=== PATIENT | female | born 1985 | race Caucasian/White ===

== ENCOUNTER 2017-06-21 13:08 | Emergency (ER) | payer OTHER ==
[~2017-06-21] VITALS: Ht 160 cm; Wt 75.0 kg
[2017-06-21] MEDS ORDERED: TYRO500C PO (13:27)
[2017-06-21] MEDS ORDERED: NS 1,000 ML IV ONE (13:30)
[2017-06-21] MEDS ORDERED: ACETAMINOPHEN 325 MG TAB PO ONE (14:15)
[2017-06-21] MEDS ORDERED: EPIN0.3I6 IM (14:43)
[2017-06-21] MEDS ORDERED: PRED10TA2 PO (14:44)
[2017-06-21 14:54] VITALS: BP 157/95
== END 2017-06-21 14:57 | disposition home or self-care (01) ==
LOC: EDBD 13:08 → M ED 13:08
DX: T63.441A Toxic effect of venom of bees, accidental (unintentional), initial encounter (principal); Y92.89 Other specified places as the place of occurrence of the external cause; Y93.89 Activity, other specified; Y99.0 Civilian activity done for income or pay

== ENCOUNTER → 2018-03-16 | Outpatient (REF) ==
[2018-03-17 10:11] LABS: HERPES ZOSTER, VARICELLA IgG 206 index (Immune >165)
== END ==
LOC: M LAB 10:25
DX: Z02.1 Encounter for pre-employment examination (principal)

== ENCOUNTER 2018-05-22 11:00 | Emergency (ER) | payer OTHER, SELFPAY ==
[2018-05-22] MEDS: NS 1,000 ML IV (12:09)
[2018-05-22] MEDS: methylPREDNISolone INJ 125 MG/2 ML VIAL (J2930) IV (12:09)
[2018-05-22] MEDS: FAMOTIDINE INJ 20MG/2ML VIAL (S0028) IV (12:09)
[2018-05-22] MEDS: ACETAMINOPHEN TAB 650MG DOSE (2X325MG) PO (12:31)
== END 2018-05-22 14:03 | disposition home or self-care (01) ==
LOC: M ED 11:00
DX: S40.861A Insect bite (nonvenomous) of right upper arm, initial encounter (principal); W57.XXXA Bitten or stung by nonvenomous insect and other nonvenomous arthropods, initial encounter; Y92.89 Other specified places as the place of occurrence of the external cause; Z91.030 Bee allergy status; Z88.0 Allergy status to penicillin; Z88.2 Allergy status to sulfonamides
CPT/HCPCS: J2930

== ENCOUNTER → 2018-05-25 | Outpatient (REF) | payer SELFPAY, OTHER | LOC: M SFHCLERA 14:13 | DX: J02.9 Acute pharyngitis, unspecified (principal); R11.0 Nausea; M54.6 Pain in thoracic spine | CPT/HCPCS: 87086 ==

== ENCOUNTER → 2018-06-08 | Outpatient (REF) | payer OTHER ==
[2018-06-08 18:07] LABS: ALBUMIN 4.3 GM/DL (3.2-5.2); ALKALINE PHOSPHATASE 84 U/L (45-117); ALT/SGPT 41 U/L (12-78); ANION GAP 7 MEQ/L (8-16); AST/SGOT 20 U/L (7-37); BILIRUBIN,TOTAL 0.8 MG/DL (0.2-1.0); BLOOD UREA NITROGEN 9 MG/DL (7-18); CALCIUM LEVEL 9.2 MG/DL (8.5-10.1); CARBON DIOXIDE LEVEL 28 MEQ/L (21-32); CHLORIDE LEVEL 105 MEQ/L (98-107); CREATININE FOR GFR 0.72 MG/DL (0.55-1.30); GLOMERULAR FILTRATION RATE > 60.0 (>60); GLUCOSE, FASTING 75 MG/DL (70-100); POTASSIUM SERUM 4.1 MEQ/L (3.5-5.1); SODIUM LEVEL 140 MEQ/L (136-145); TOTAL PROTEIN 7.6 GM/DL (6.4-8.2)
== END ==
LOC: M LAB REF 17:08
DX: E03.8 Other specified hypothyroidism (principal)

== ENCOUNTER → 2018-07-13 | Outpatient (CLI) | payer BC, OTHER | LOC: M OUTALCOH 08:21 | DX: Z13.89 Encounter for screening for other disorder (principal); F10.10 Alcohol abuse, uncomplicated ==

== ENCOUNTER 2018-07-14 17:28 | Emergency (ER) | payer BC ==
[2018-07-14] MEDS: METOCLOPRAMIDE INJ 10MG/2ML VIAL (J2765) IV (19:45)
[2018-07-14] MEDS: NS 1,000 ML IV (19:45)
[2018-07-14] MEDS: diphenhydrAMINE INJ 50MG/ML VIAL (J1200) IV (19:45)
[2018-07-14] MEDS: hydroCHLOROthiazide 12.5 MG CAPSULE PO (20:00)
[2018-07-14] MEDS: KETOROLAC 30 MG/ML VIAL (J1885) IV (20:30)
[2018-07-14 20:31] LABS: BASO % 0.4 % (0.0-1.0); EOS # 0.1 10^3/uL (0.0-0.50); EOS % 0.5 % (0.0-3.0); HEMATOCRIT 43.8 % (36.0-47.0); HEMOGLOBIN 15.4 g/dl (12.0-15.5); IMMATURE GRANULOCYTE % 0.6 % (0-3.0); LYMPH % 21.7 % (24.0-44.0); MEAN CORPUSCULAR HEMOGLOBIN 32.1 pg (27.0-33.0); MEAN CORPUSCULAR HGB CONC 35.2 g/dl (32.0-36.5); MEAN CORPUSCULAR VOLUME 91.3 fl (80.0-96.0); MONO # 0.8 10^3/uL (0.0-0.8); MONO % 8.9 % (0.0-5.0); NEUTROPHILS # 6.4 10^3/uL (1.8-7.7); NEUTROPHILS % 67.9 % (36.0-66.0); PLATELET COUNT, AUTOMATED 214 10^3/uL (150-450); RED CELL DISTRIBUTION WIDTH 11.7 % (11.5-14.5); WHITE BLOOD COUNT 9.4 10^3/uL (4.0-10.0)
[2018-07-14 20:52] LABS: ERYTHROCYTE SEDIMENTATION RATE 1 mm/hr (0-20)
[2018-07-14 20:59] LABS: ANION GAP 6 MEQ/L (8-16); BLOOD UREA NITROGEN 8 MG/DL (7-18); C REACTIVE PROTEIN QUANTITATIV 0.43 MG/DL (0.00-0.30); CALCIUM LEVEL 9.5 MG/DL (8.5-10.1); CARBON DIOXIDE LEVEL 28 MEQ/L (21-32); CHLORIDE LEVEL 105 MEQ/L (98-107); CREATININE FOR GFR 0.78 MG/DL (0.55-1.30); FREE THYROXINE INDEX 5.3 % (1.3-4.8); GLOMERULAR FILTRATION RATE > 60.0 (>60); GLUCOSE, FASTING 88 MG/DL (70-100); POTASSIUM SERUM 3.8 MEQ/L (3.5-5.1); SODIUM LEVEL 139 MEQ/L (136-145); T UPTAKE 34 % (30-39); THYROID STIMULATING HORMONE 0.159 uIU/ML (0.358-3.740); THYROXINE (T4) 15.5 UG/DL (4.5-12.0)
== END 2018-07-14 21:30 | disposition home or self-care (01) ==
LOC: M ED 17:28
DX: G43.909 Migraine, unspecified, not intractable, without status migrainosus (principal); E05.90 Thyrotoxicosis, unspecified without thyrotoxic crisis or storm; I10 Essential (primary) hypertension; Z85.850 Personal history of malignant neoplasm of thyroid; Z90.89 Acquired absence of other organs; Z88.1 Allergy status to other antibiotic agents; Z88.0 Allergy status to penicillin; Z88.2 Allergy status to sulfonamides; Z91.030 Bee allergy status; Z79.899 Other long term (current) drug therapy; Z79.52 Long term (current) use of systemic steroids
CPT/HCPCS: J1200

== ENCOUNTER 2018-07-30 11:00 | Outpatient (RCR) | payer BC | END 2018-08-15 | LOC: M OUTALCOH 11:00 | DX: F10.10 Alcohol abuse, uncomplicated (principal) ==

== ENCOUNTER → 2018-08-30 | Outpatient (CLI) | payer BC | LOC: M LRY 13:41 | DX: M25.561 Pain in right knee (principal) | CPT/HCPCS: 73564 ==

== ENCOUNTER → 2018-09-07 | Outpatient (CLI) | payer BC | LOC: M RAD 12:18 | DX: M25.532 Pain in left wrist (principal) | CPT/HCPCS: 73110 ==

== ENCOUNTER → 2018-12-06 | Outpatient (REF) | payer BC ==
[~2018-12-06] MED LIST: BENA25CA4 PO; EPIN0.3I11 IM; EPIP0.3I2 IM; HYDR12.55 PO; LEVO300T21 PO; PEPC1TAB5 PO; PRED10TA2 PO; PRED20TA PO; TYRO500C PO
[2018-12-06 12:28] LABS: ALBUMIN 4.4 GM/DL (3.2-5.2); ALT/SGPT 63 U/L (12-78); BILIRUBIN,TOTAL 1.2 MG/DL (0.2-1.0); BLOOD UREA NITROGEN 9 MG/DL (7-18); CALCIUM LEVEL 9.2 MG/DL (8.5-10.1); CARBON DIOXIDE LEVEL 28 MEQ/L (21-32); CHLORIDE LEVEL 100 MEQ/L (98-107); CHOLESTEROL LEVEL 202 MG/DL (<200); CHOLESTEROL RISK RATIO 5.941 (<5); CREATININE FOR GFR 0.72 MG/DL (0.55-1.30); GLOMERULAR FILTRATION RATE > 60.0 (>60); GLUCOSE, FASTING 92 MG/DL (70-100); HDL CHOLESTEROL 34 MG/DL (>40); LDL CHOLESTEROL 118 MG/DL (<100); NON-HDL-C 168 MG/DL; POTASSIUM SERUM 3.7 MEQ/L (3.5-5.1); SODIUM LEVEL 136 MEQ/L (136-145); TOTAL PROTEIN 7.5 GM/DL (6.4-8.2); TRIGLYCERIDES LEVEL 249 MG/DL (<150)
== END ==
LOC: M LAB REF 11:59
PROVIDERS: ATTEND Family Medicine Addiction Medicine
DX: F41.1 Generalized anxiety disorder (principal); I10 Essential (primary) hypertension; E03.8 Other specified hypothyroidism

== ENCOUNTER → 2019-03-18 | Outpatient (CLI) | payer BC ==
[2019-03-18 08:49] LABS: BASO % 0.4 % (0.0-1.0); EOS # 0.1 10^3/uL (0.0-0.50); EOS % 1.2 % (0.0-3.0); HEMATOCRIT 42.9 % (36.0-47.0); HEMOGLOBIN 14.8 g/dl (12.0-15.5); LYMPH # 2.1 10^3/uL (1.5-4.5); LYMPH % 25.7 % (24.0-44.0); MEAN CORPUSCULAR HEMOGLOBIN 30.9 pg (27.0-33.0); MEAN CORPUSCULAR HGB CONC 34.5 g/dl (32.0-36.5); MEAN CORPUSCULAR VOLUME 89.6 fl (80.0-96.0); MONO # 0.7 10^3/uL (0.0-0.8); MONO % 8.3 % (0.0-5.0); NEUTROPHILS # 5.2 10^3/uL (1.8-7.7); PLATELET COUNT, AUTOMATED 209 10^3/uL (150-450); RED BLOOD COUNT 4.79 10^6/uL (4.00-5.40); WHITE BLOOD COUNT 8.2 10^3/uL (4.0-10.0)
[2019-03-18 09:33] LABS: ALBUMIN 4.1 GM/DL (3.2-5.2); ALT/SGPT 53 U/L (12-78); BILIRUBIN,TOTAL 0.8 MG/DL (0.2-1.0); BLOOD UREA NITROGEN 9 MG/DL (7-18); CALCIUM LEVEL 8.8 MG/DL (8.5-10.1); CARBON DIOXIDE LEVEL 26 MEQ/L (21-32); CHLORIDE LEVEL 108 MEQ/L (98-107); CHOLESTEROL LEVEL 180 MG/DL (<200); CHOLESTEROL RISK RATIO 5.294 (<5); CREATININE FOR GFR 0.72 MG/DL (0.55-1.30); FREE T4 1.42 NG/DL (0.76-1.46); GLOMERULAR FILTRATION RATE > 60.0 (>60); GLUCOSE, FASTING 87 MG/DL (70-100); HDL CHOLESTEROL 34 MG/DL (>40); LDL CHOLESTEROL 124 MG/DL (<100); NON-HDL-C 146 MG/DL; POTASSIUM SERUM 4.3 MEQ/L (3.5-5.1); SODIUM LEVEL 140 MEQ/L (136-145); THYROID STIMULATING HORMONE 0.142 uIU/ML (0.358-3.740); TRIGLYCERIDES LEVEL 110 MG/DL (<150)
[2019-03-18 09:34] LABS: TOTAL 25(OH) VITAMIN D 25.4 NG/ML (30.0-100.0); TOTAL T3 115.7 NG/DL (60.0-181.0); VITAMIN B12 LEVEL 516 PG/ML
[2019-03-18 09:35] LABS: FOLATE 12.1 NG/ML
[2019-03-18 09:57] LABS: HEMOGLOBIN A1c 4.7 %
== END ==
LOC: M LAB 07:34
PROVIDERS: ATTEND Nurse Practitioner Family
DX: Z13.9 Encounter for screening, unspecified (principal); I10 Essential (primary) hypertension; E03.8 Other specified hypothyroidism

== ENCOUNTER → 2019-05-02 | Outpatient (REF) | payer BC ==
[2019-05-02 20:39] LABS: CHLAMYDIA DNA AMPLIFICATION NEGATIVE (NEGATIVE); GC DNA AMPLIFICATION NEGATIVE (NEGATIVE)
== END ==
LOC: M LAB REF 16:15
PROVIDERS: ATTEND Physician Assistant
DX: N76.0 Acute vaginitis (principal)

== ENCOUNTER → 2019-10-12 | Outpatient (REF) | payer BC ==
[2019-10-12 19:30] LABS: BASO # 0.1 10^3/uL (0.0-0.2); BASO % 0.5 % (0.0-1.0); EOS # 0.1 10^3/uL (0.0-0.5); EOS % 0.6 % (0.0-3.0); HEMATOCRIT 43.4 % (36.0-47.0); HEMOGLOBIN 15.5 g/dl (12.0-15.5); LYMPH # 2.7 10^3/uL (1.5-5.0); LYMPH % 22.4 % (24.0-44.0); MEAN CORPUSCULAR HEMOGLOBIN 32.6 pg (27.0-33.0); MEAN CORPUSCULAR HGB CONC 35.7 g/dl (32.0-36.5); MEAN CORPUSCULAR VOLUME 91.4 fl (80.0-96.0); MONO # 0.9 10^3/uL (0.0-0.8); MONO % 7.9 % (0.0-5.0); NEUTROPHILS # 8.2 10^3/uL (1.5-8.5); NEUTROPHILS % 68.1 % (36.0-66.0); PLATELET COUNT, AUTOMATED 255 10^3/uL (150-450); RED BLOOD COUNT 4.75 10^6/uL (4.00-5.40)
[2019-10-12 20:22] LABS: FREE T4 0.76 NG/DL (0.76-1.46); THYROID STIMULATING HORMONE 93.4 uIU/ML (0.358-3.740)
== END ==
LOC: M LAB REF 18:43
PROVIDERS: ATTEND Nurse Practitioner Adult Health
DX: Z13.9 Encounter for screening, unspecified (principal); E03.8 Other specified hypothyroidism

== ENCOUNTER → 2020-02-22 | Outpatient (REF) | payer BC ==
[2020-02-22 18:51] LABS: APPEARANCE, URINE MANUAL HAZY (CLEAR); BILIRUBIN, URINE MANUAL OBSCURED (NEGATIVE); COLOR, URINE MANUAL DK YELLOW (YELLOW); GLUCOSE, URINE (UA) MANUAL OBSCURED mg/dL (NEGATIVE); KETONE, URINE MANUAL OBSCURED mg/dL (NEGATIVE); PH,URINE MAN OBSCURED UNITS (5.0 - 7.0); PROTEIN, URINE MANUAL OBSCURED mg/dL (NEGATIVE); SPECIFIC GRAVITY,URINE MANUAL 1.022 (1.002-1.035); UROBILINOGEN, URINE MANUAL OBSCURED mg/dl (NORMAL)
[2020-02-22 18:52] LABS: BLOOD URINE MANUAL OBSCURED (NEGATIVE); LEUKOCYTE ESTERASE, URINE MAN OBSCURED (NEGATIVE); NITRITE, URINE MANUAL OBSCURED (NEGATIVE)
[2020-02-22 19:03] LABS: SQUAMOUS EPITHELIAL CELL URINE LARGE AMOUNT /hpf (SMALL AMT)
[2020-02-22 19:04] LABS: BACTERIA, URINE MOD AMOUNT; MUCUS, URINE SMALL AMOUNT (NEGATIVE)
[2020-02-22 19:13] LABS: HYALINE CAST, URINE NONE SEEN /lpf (0-1)
[2020-02-22 20:10] LABS: CHLAMYDIA DNA AMPLIFICATION NEGATIVE (NEGATIVE); GC DNA AMPLIFICATION NEGATIVE (NEGATIVE)
== END ==
LOC: M LAB REF 16:33
PROVIDERS: ATTEND Nurse Practitioner Adult Health
DX: N39.0 Urinary tract infection, site not specified (principal)

== ENCOUNTER 2020-05-17 11:11 | Emergency (ER) | payer BC ==
[~2020-05-17] VITALS: Ht 160 cm; Wt 77.6 kg
[2020-05-17 12:21] LABS: BASO % 0.6 % (0.0-1.0); EOS # 0.1 10^3/uL (0.0-0.5); EOS % 1.3 % (0.0-3.0); HEMATOCRIT 44.4 % (36.0-47.0); HEMOGLOBIN 15.7 g/dl (12.0-15.5); LYMPH # 1.8 10^3/uL (1.5-5.0); LYMPH % 25.6 % (24.0-44.0); MEAN CORPUSCULAR HEMOGLOBIN 31.2 pg (27.0-33.0); MEAN CORPUSCULAR HGB CONC 35.4 g/dl (32.0-36.5); MEAN CORPUSCULAR VOLUME 88.3 fl (80.0-96.0); MONO # 0.7 10^3/uL (0.0-0.8); MONO % 9.4 % (0.0-5.0); NEUTROPHILS # 4.4 10^3/uL (1.5-8.5); NEUTROPHILS % 62.8 % (36.0-66.0); PLATELET COUNT, AUTOMATED 234 10^3/uL (150-450); RED BLOOD COUNT 5.03 10^6/uL (4.00-5.40)
[2020-05-17] MEDS ORDERED: LEVO50TA5 PO (12:29)
[2020-05-17] MEDS ORDERED: LISI20TA20 PO (12:29)
[2020-05-17 12:37] LABS: INR 1.06; PROTHROMBIN TIME 13.5 SECONDS (11.8-14.0)
[2020-05-17 12:38] LABS: PARTIAL THROMBOPLASTIN TIME 32.4 SECONDS (25.0-38.4)
[2020-05-17 12:55] LABS: BLOOD UREA NITROGEN 11 MG/DL (7-18); CALCIUM LEVEL 9.4 MG/DL (8.5-10.1); CARBON DIOXIDE LEVEL 25 MEQ/L (21-32); CHLORIDE LEVEL 108 MEQ/L (98-107); CREATININE FOR GFR 0.79 MG/DL (0.55-1.30); GLOMERULAR FILTRATION RATE > 60.0 (>60); GLUCOSE, FASTING 96 MG/DL (70-100); POTASSIUM SERUM 3.9 MEQ/L (3.5-5.1); SODIUM LEVEL 139 MEQ/L (136-145); THYROID STIMULATING HORMONE 0.005 uIU/ML (0.358-3.740)
--- NOTE | 2020-05-17 12:55 | REP ---
Clinical: Menorrhagia. Technique: Transabdominal pelvic ultrasound followed by transvaginal examination for better evaluation of the endometrium and adnexa with color Doppler evaluation of the ovaries. Findings: Bladder is normal and measures 6.5 x 3.9 x 6.7 cm. Anteverted uterus measures 9.8 x 4.6 x 5.4 cm. Anterior intramural/submucosal fibroid measuring approximately 1.8 cm towards the fundus is suggested. Endometrial complex measures 4 mm. Subcentimeter Nabothian cysts identified in the lower uterine segment. Bilateral ovaries are normal in appearance and vascularity without torsion. Right ovary measures 3.0 x 1.9 x 3.2 cm (RI 0.54). The ovary measures 2.6 x 2.1 x 2.6 cm (RI 0.46). No pelvic fluid or adnexal mass lesion. Impression: 1. Suspected anterior intramural/submucosal fibroid. 2. Normal bilateral ovaries without torsion. Electronically Signed by Bradly Lu MD 05/17/2020 12:46 P
[2020-05-17 13:06] LABS: HCG, SERUM QUALITATIVE NEGATIVE (NEGATIVE)
[2020-05-17] MEDS ORDERED: IBUPROFEN 800 MG TAB PO ONE (13:15)
[2020-05-17] MEDS ORDERED: IBUP80TA PO (13:16)
[2020-05-17 13:41] VITALS: BP 155/90
== END 2020-05-17 13:42 | disposition home or self-care (01) ==
LOC: M ED 11:11
DX: D25.9 Leiomyoma of uterus, unspecified (principal); N93.8 Other specified abnormal uterine and vaginal bleeding; E03.9 Hypothyroidism, unspecified; Z79.899 Other long term (current) drug therapy; Z79.890 Hormone replacement therapy; Z88.0 Allergy status to penicillin; Z88.1 Allergy status to other antibiotic agents; Z88.2 Allergy status to sulfonamides; Z88.8 Allergy status to other drugs, medicaments and biological substances; Z91.030 Bee allergy status

== ENCOUNTER 2020-06-09 15:21 | Emergency (ER) | payer BC ==
[~2020-06-09 15:21] MED LIST changes: +IBUP80TA PO; +LEVO50TA5 PO; +LISI20TA20 PO
[2020-06-09] MEDS ORDERED: FAMOTIDINE INJ 20MG/2ML VIAL (S0028 PER 1) ONE (15:58)
[2020-06-09] MEDS ORDERED: FAMOTIDINE INJ 20MG/2ML VIAL (S0028 PER 1) As Ordered ONE (15:58)
== END 2020-06-09 18:33 | disposition home or self-care (01) ==
LOC: M ED 15:21
DX: R22.1 Localized swelling, mass and lump, neck (principal); T63.441A Toxic effect of venom of bees, accidental (unintentional), initial encounter; T44.5X5A Adverse effect of predominantly beta-adrenoreceptor agonists, initial encounter; X58.XXXA Exposure to other specified factors, initial encounter; Y92.89 Other specified places as the place of occurrence of the external cause; I10 Essential (primary) hypertension; Z79.899 Other long term (current) drug therapy; Z79.890 Hormone replacement therapy; Z88.0 Allergy status to penicillin; Z88.1 Allergy status to other antibiotic agents; Z88.2 Allergy status to sulfonamides; Z88.8 Allergy status to other drugs, medicaments and biological substances; Z91.030 Bee allergy status

== ENCOUNTER → 2020-07-26 | Outpatient (REF) | payer BC | LOC: M LAB REF 15:34 | PROVIDERS: ATTEND Physician Assistant | DX: R30.0 Dysuria (principal) ==

== ENCOUNTER → 2020-08-30 | Outpatient (REF) | payer BC | LOC: M SFHCWAGY 10:20 | PROVIDERS: ATTEND Obstetrics & Gynecology | DX: Z12.4 Encounter for screening for malignant neoplasm of cervix (principal); Z77.9 Other contact with and (suspected) exposures hazardous to health ==

== ENCOUNTER → 2020-10-08 | Outpatient (CLI) | payer SELFPAY | LOC: M LABSMTC 13:33 | PROVIDERS: ATTEND Pediatrics | DX: Z20.828 Contact with and (suspected) exposure to other viral communicable diseases (principal) ==

== ENCOUNTER → 2020-11-01 | Outpatient (CLI) | payer BC ==
[2020-11-01 15:46] LABS: BASO % 0.4 % (0.0-1.0); EOS # 0.1 10^3/uL (0.0-0.5); HEMATOCRIT 41.9 % (36.0-47.0); HEMOGLOBIN 14.6 g/dl (12.0-15.5); LYMPH # 2.3 10^3/uL (1.5-5.0); LYMPH % 24.2 % (24.0-44.0); MEAN CORPUSCULAR HEMOGLOBIN 31.7 pg (27.0-33.0); MEAN CORPUSCULAR HGB CONC 34.8 g/dl (32.0-36.5); MEAN CORPUSCULAR VOLUME 90.9 fl (80.0-96.0); MONO # 0.7 10^3/uL (0.0-0.8); NEUTROPHILS # 6.3 10^3/uL (1.5-8.5); NEUTROPHILS % 66.9 % (36.0-66.0); PLATELET COUNT, AUTOMATED 242 10^3/uL (150-450); RED BLOOD COUNT 4.61 10^6/uL (4.00-5.40); WHITE BLOOD COUNT 9.3 10^3/uL (4.0-10.0)
[2020-11-01 16:11] LABS: ALBUMIN 4.2 GM/DL (3.2-5.2); ALT/SGPT 44 U/L (12-78); BILIRUBIN,TOTAL 0.4 MG/DL (0.2-1.0); BLOOD UREA NITROGEN 10 MG/DL (7-18); CALCIUM LEVEL 9.7 MG/DL (8.5-10.1); CARBON DIOXIDE LEVEL 26 MEQ/L (21-32); CHLORIDE LEVEL 105 MEQ/L (98-107); CHOLESTEROL LEVEL 202 MG/DL (<200); CHOLESTEROL RISK RATIO 6.516 (<5); CREATININE FOR GFR 0.87 MG/DL (0.55-1.30); FREE T4 1.13 NG/DL (0.76-1.46); GLOMERULAR FILTRATION RATE > 60.0 (>60); GLUCOSE, FASTING 102 MG/DL (70-100); HDL CHOLESTEROL 31 MG/DL (>40); NON-HDL-C 171 MG/DL; POTASSIUM SERUM 3.9 MEQ/L (3.5-5.1); SODIUM LEVEL 138 MEQ/L (136-145); TOTAL PROTEIN 7.3 GM/DL (6.4-8.2); TRIGLYCERIDES LEVEL 606 MG/DL (<150)
== END ==
LOC: M LAB 15:01
PROVIDERS: ATTEND Physician Assistant
DX: E03.9 Hypothyroidism, unspecified (principal)

== ENCOUNTER 2020-12-03 09:42 | Emergency (ER) | payer BC ==
[~2020-12-03] VITALS: Ht 160 cm; Wt 82.4 kg
--- OUTSIDE RECORDS SUMMARY | 2020-12-03 09:48 | CCD ---
Author Author [facility] Organization [facility] Address Unknown Phone Unavailable Care Team Providers Care Shipping And Receiving Name Role Phone Jane Xie Unavailable PROBLEMS Type Condition ICD9-CM Code [id number] Code Onset Dates Condition S tatus SNOMED Code Notes Problem Hypertensive urgency I16.0 Active 283775095 Problem Abnormal uterine bleeding (AUB) N93.9 Active 15024266966326 ALLERGIES Allergen (clinical drug ingredient) Drug/Non Drug Allergy do cumented on EMR Reaction Allergy Type Onset Date Status sulfamethoxazole / trimethoprim Bactrim[place] [place] Code:[address]-34) unknown Drug Allergy Active Bee Pollen([facility] [place] Code:[address]-79) Rash Drug Allergy Active amoxicillin Amoxicillin(ND Code:[address]-35) unknown Drug Aller gy Active ENCOUNTERS from 1986 to 2020-11-12 Encounter Location Date Provider Diagnosis [facility] [address] [place] [phone] Oct, Jane Rojas IMMUNIZATIONS No Information SOCIAL HISTORY Tobacco Use: Social History Observation Description Date Details (start date - stop date) Never Smoker Sex Assigned At : Social History Observation Description Sex Assigned At Unknown Alcohol Screening: Question Answer Notes Did you have a drink containing alcohol in the past year? Ye s Points 2 Interpretation Negative How many drinks did you have on a typica l day when you were drinking in the past year? 1 or 2 (0 points) How often did you have a drink containing alcohol in t he past year? Two to four times a month (2 points) Tobacco Use: Question Answer Notes Are you a: never smoker REASON FOR REFERRAL No Information VITAL SIGNS No information MEDICATIONS Medication SIG (Take, Route, Frequency, Duration) Notes Start Da te End Date Status Paroxetine HCl 10 MG 1 tablet in the morning Orally Once a day Not-Taking Ibuprofen 800 MG 1 tablet Orally four times daily take wi th food for 30 day(s) Aug, Not-Taking Levothyroxine Sodium 200 MCG 1 tablet in the morning o n an empty stomach Orally Once a day Active Lisinopril-Hydrochlorothiazide 20-25 MG 1 tablet Orall y Once a day for 30 day(s) Aug, Active Neti Pot Sinus Wash 2300-700 MG as directed Nasally bid for 10 d ay(s) Aug, Not-Taking Hydrochlorothiazide 25 MG 1 tablet in the morning Orally Once a day Not-Taking Levothyroxine Sodium 50 MCG 1 tablet in the morning on an empty stomach Orally Once a day Active Ibuprofen 800 MG 1 tablet with food or milk as needed Ora lly Three times a day Not-Taking Levothroyxine 300 mg 1 tab orally Daily Not-Taking Sudafed 30 MG 1 tablet as needed Orally every 6 hrs for 5 day(s) Aug, Not-Taking Flonase 50 MCG/ACT 1 spray in each nostril Nasally Twice a day f or 30 day(s) Aug, Not-Taking PROCEDURES No Information RESULTS No Results REASON FOR VISIT AUTHORIZATION MEDICAL (GENERAL) HISTORY Type Description Date Medical History hypertension Medical History Hypothyroidism Surgical History tubal ligation 2010 Surgical History thyroidectomy 2011 Surgical History uterine ablation 2012, 2014 Hospitalization History see above Goals Section No Information Health Concerns No Information MEDICAL EQUIPMENT No Information MENTAL STATUS No Information FUNCTIONAL STATUS No Information ASSESSMENTS No Information PLAN OF TREATMENT Next Appt Details Provider Name:Jane Leslie Rojas 2021-01-16 0 1:00:00 PM, [address] [place] [address], [phone], Provider Name:Jane Xie 2021-01-23 0 7:30:00 AM, [address] [place] [address], [phone], Provider Name:Jane Xie 2021-02-08 0 8:20:00 AM, [address] [place] [address], [phone], Provider Name:Jane Xie 2021-03-05 0 8:20:00 AM, [address] [place], [phone], Insurance Providers Payer Name Payer Address Payer Phone Insured Name Patient Relati onship to Insured Coverage Start Date Coverage End Date YISSEL SUÁREZ PPO [phone] [facility] [place] [id number] GIL COTTO self
--- OUTSIDE RECORDS SUMMARY | 2020-12-03 09:48 | CCD ---
Author Organization Unknown Address [address] [place] [address] Phone [phone] Care Team Providers Care Insurance Verification Representative Name Role Phone Joy Logan Unavailable Unavailable Allergies Code Code System Name Reaction Severity Status Onset 723 RxNorm Amoxicillin Active 06/08/2018 002630 RxNorm Bactrim Active 06/08/2018 42860 RxNorm Vancomycin Active 06/08/2018 Notes: BEE STINGS Medications Name Status Start Date Stop Date buspirone 5 mg tablet Completed 09/27/2020 ciprofloxacin 500 mg tablet TAKE 1 TABLET BY MOUTH TWICE DAILY Completed 09/16 clindamycin HCl 300 mg capsule Completed 11/27/2019 doxycycline hyclate 100 mg capsule TAKE 1 CAPSULE BY MOUTH TWICE DAILY Completed 10/2020 epinephrine 0.3 mg/0.3 mL injection, auto-injector Completed 09/27/2020 Euthyrox 200 mcg tablet TAKE 1 TABLET BY MOUTH ONCE DAILY IN THE MORNING ON AN EMPTY STOMACH TAKE WITH 50 MCG TABLET Completed 09/27/2020 fluconazole 150 mg tablet TAKE 1 TABLET BY MOUTH NEEDED FOR YEAST INFECTION Completed 09/27/2020 hydrocodone 5 mg-acetaminophen 325 mg tablet Completed 09/27/2020 ibuprofen 800 mg tablet Completed 09/27/20 20 levothyroxine 50 mcg tablet Active Not available lisinopril 20 mg-hydrochlorothiazide 25 mg tablet TAKE 1 TABLET BY MOUTH ONCE DAILY Active Not a vailable nitrofurantoin monohydrate/macrocrystals 100 mg capsule Complete d 09/27/2020 prednisone 10 mg tablet TAKE 2 TABLETS BY MOUTH TWICE A DAY FOR 4 DAYS THEN 1 TAB BY MOUTH 3 TIMES A DAY FOR 4 DAYS THEN 1 TAB BY MOUTH TWICE A DAY FOR 4 DAYS THEN Completed 09/27/2020 prednisone 20 mg tablet Take 2 tablets every day by oral route in the morning for 5 days. Active Not available sertraline 100 mg tablet Completed 020 Problems Name Status Onset Date Source Hypothyroidism Active 06/08/2018 History Hypertensive Disorder Active 06/08/2018 History Generalized Anxiety Disorder Active 07/20/2018 His tory Traumatic Injury by Site Unknown 09/07/2018 History Under Immunized Unknown 11/24/2018 History Influenza Vaccine Needed Unknown 12/06/2018 History Clinical Finding Unknown 03/17/2019 History Urinary Tract Infectious Disease Unknown 02/22/2020 History Procedures Date Name Performed by Tonsillectomy Information not avai lable Endometrial Ablation Information not shane ilable Bilateral Tubal Ligation Information not available Thyroidectomy Information not avai lable Notes: Pt states Hysterectomy is schedul ed for Nov 2020 Results Lab Results None recorded. Past Encounters 09/27/2020 Hypertensive Disorder; Anterior Chandra Splints Tanika Wilson PA-C: [address] [place] [address], Ph. Social History Tobacco Smoking Status Former Smoker (11/19 PPD) Notes: pt re ports smoking less than 1 cig/day Vaccine List Vaccine Type Influenza, injectable, MDCK, preservativ e free, quadrivalent 11/24/20180.5 mL Tdap 12/06/20180.5 mL varicella 12/06/20180.5 mL 01/13/20190.5 mL Plan of Care Reminders Provider Appointments None recorded. Lab None recorded. Referral None recorded. Procedures None recorded. Surgeries None recorded. Imaging None recorded. Vitals 09/27/2020 11:00AM ESTABLISHED [id number] Height Weight BMI Blood Pressure 63 in 175 lbs 8 oz 31.1 kg/m2 154/113 mm[Hg] 02/22/2020 Height Weight Blood Pressure 63 in 180 lbs 0.96 oz 152/105 mm[Hg] 10/10/2019 Height Weight Blood Pressure 63 in 182 lbs 156/105 mm[Hg] 03/17/2019 Height Weight Blood Pressure 63 in 172 lbs 2.08 oz 130/88 mm[Hg] 12/01/2018 Height Weight Blood Pressure 63 in 179 lbs 2.08 oz 132/100 mm[Hg]
--- OUTSIDE RECORDS SUMMARY | 2020-12-03 09:48 | CCD ---
Author Organization Unknown Address [address] [place] [address] Phone [phone] Care Team Providers Care Singeing Torch Operator Name Role Phone Joy Logan Unavailable Unavailable Allergies Code Code System Name Reaction Severity Status Onset 723 RxNorm Amoxicillin Active 06/08/2018 179128 RxNorm Bactrim Active 06/08/2018 52054 RxNorm Vancomycin Active 06/08/2018 Bee Venom Protein (Honey Bee) Active Medications Name Status Start Date Stop Date buspirone 5 mg tablet Completed 09/27/2020 ciprofloxacin 500 mg tablet TAKE 1 TABLET BY MOUTH TWICE DAILY Completed 09/16 citalopram 10 mg tablet Take 1 tablet every day by oral route. Active Not available clindamycin HCl 300 mg capsule Completed 1 11/27/2019 doxycycline hyclate 100 mg capsule TAKE 1 CAPSULE BY MOUTH TWICE DAILY Completed 10/2020 epinephrine 0.3 mg/0.3 mL injection, auto-injector Completed 09/27/2020 Euthyrox 200 mcg tablet Active Not avai lable Euthyrox 50 mcg tablet Active Not avail able fluconazole 150 mg tablet TAKE 1 TABLET BY MOUTH NEEDED FOR YEAST INFECTION Completed 09/27/2020 hydrocodone 5 mg-acetaminophen 325 mg tablet Completed 09/27/2020 hydroxyzine HCl 25 mg tablet 1-2 tablets 30 mins prior to bed time, MDD 2 Active Not available ibuprofen 800 mg tablet Completed 09/27/20 lisinopril 20 mg-hydrochlorothiazide 25 mg tablet TAKE [...] route in the morning for 5 days. Completed 11/23/2020 sertraline 100 mg tablet Completed 020 Problems [...] ed for Nov 2020 Results Lab Results Date Name Specimen Result Interpretation Description Value Range Status Address 11/01/2020 CBC W/ Auto Diff Normal White Blood Count 9.3 10 4.0-10.0 10 [facility]: [address] [place] [address] Normal Red Blood Count 4.61 10 4.00-5.40 10 [facility]: [address] [place] [address] Normal Hemoglobin 14.6 g/dL 12.0-15.5 g/dL [facility]: [address] [place] [address] Normal Hematocrit 41.9 % 36.0-47.0 % [facility]: [address] [place] [address] Normal Mean Corpuscular Volume 90.9 fL 80.0 -96.0 fL [facility]: [address] [place] [address] Normal Mean Corpuscular Hemoglobin 31.7 pg 27.0-33.0 pg [facility]: [address] [place] [address] Normal Mean Corpuscular HGB Conc 34.8 g/dL 32.0-36.5 g/dL [facility]: [address] [place] [address] Normal Red Cell Distribution Width 11.9 % 1 1.5-14.5 % [facility]: [address] [place] [address] Normal Platelet Count, Automated 242 10 150 -450 10 [facility]: [address] [place] [address] High Neutrophils % 66.9 % 36.0-66.0 % [facility]: 0 [facility] Normal Lymph % 24.2 % 24.0-44.0 % [facility]: [address] [facility] High Aiken % 7.0 % 0.0-5.0 % [facility]: [address] [facility] Normal Eos % 1.0 % 0.0-3.0 % [facility]: [address] [facility] Normal Baso % 0.4 % 0.0-1.0 % [facility]: [address] [facility] Normal Immature Granulocyte % 0.5 % 0-3.0 % [facility]: [address] [facility] Normal Nucleated Red Blood Cell % 0.0 % 0- 0 % [facility]: [address] [facility] Normal Neutrophils # 6.3 10 1.5-8.5 10 [facility] [address] [facility] Normal Lymph # 2.3 10 1.5-5.0 10 [facility]: [address] [facility] Normal Aiken # 0.7 10 0.0-0.8 10 [facility]: [address] [facility] Normal Eos # 0.1 10 0.0-0.5 10 [facility]: [address] [facility] Normal Baso # 0.0 10 0.0-0.2 10 [facility]: [address] [facility] 11/01/2020 CMP, Serum or Plasma High Glucose, Fastin g 102 mg/dL 70-100 mg/dL [facility]: 83 0 [facility] Normal Blood Urea Nitrogen 10 mg/dL 7-18 mg /dL [facility]: [address] [facility] Normal Creatinine for GFR 0.87 mg/dL 0.55-1 .30 mg/dL [facility]: 0 [facility] Normal Glomerular Filtration Rate > 60.0 >6 0 [facility]: [address] [facility] Normal Sodium Level 138 mEq/L 136-145 mEq/L [facility]: [address] [facility] Normal Potassium Serum 3.9 mEq/L 3.5-5.1 mE q/L [facility]: [address] [facility] Normal Chloride Level 105 mEq/L 98-107 mEq/ L [facility]: [address] [facility] Normal Carbon Dioxide Level 26 mEq/L 21-32 mEq/L [facility]: [address] [facility] Low Anion Gap 7 mEq/L 8-16 mEq/L [facility]: [address] [facility] Normal Calcium Level 9.7 mg/dL 8.5-10.1 mg/ dL [facility]: [address] [facility] Normal AST/SGOT 22 U/L 7-37 U/L [facility]: [address] [facility] Normal ALT/SGPT 44 U/L 12-78 U/L [facility]: [address] [facility] Normal Alkaline Phosphatase 77 U/L 45-117 U /L [facility]: [address] [facility] Normal Bilirubin,total 0.4 mg/dL 0.2-1.0 mg /dL [facility]: [address] [facility] Normal Total Protein 7.3 gm/dL 6.4-8.2 gm/d L [facility]: [address] [facility] Normal Albumin 4.2 gm/dL 3.2-5.2 gm/dL Sakina l [facility]: [address] [facility] Normal Albumin/globulin Ratio 1.4 1.2-2. 2 [facility]: [address] [facility] 11/01/2020 Lipid Panel, Blood High Triglycerides Lev el 606 mg/dL <150 mg/dL [facility]: 83 0 [facility] High Cholesterol Level 202 mg/dL <200 mg/ dL [facility]: [address] [facility] Low HDL Cholesterol 31 mg/dL >40 mg/dL F inal [facility]: [address] [facility] Normal Non-hdl-c 171 mg/dL Final [facility]: [address] [facility] High Cholesterol Risk Ratio 6.516 <5 Final [facility]: [address] [facility] 11/01/2020 TSH + Free T4, Serum High Thyroid Stimulating Hormone 5.160 uIU/mL 0.358-3.740 uIU/mL Final [facility]: [address] [facility] Normal Free T4 1.13 NG/dL 0.76-1.46 NG/dL F inal [facility]: [address] [facility] Past Encounters 11/23/2020 Hypertensive Disorder; Generalized Anxiety Disorder; Hypothyroidism Tanika KRISTOFER Wilson: [address] [place] [phone], Ph. 09/27/2020 Hypertensive Disorder; Anterior Chandra Splints Tanika Wilson PA-C: [address] [place] [phone], Ph. Social History Tobacco Smoking Status Former [...] Surgeries None recorded. Imaging None recorded. Vitals 11/23/2020 02:00PM ESTABLISHED [id number] Height Weight BMI Blood Pressure 63 in 176 lbs 2 oz 31.2 kg/m2 149/108 mm[Hg] 09/27/2020 11:00AM ESTABLISHED [id number] Height Weight BMI Blood Pressure 63 in [...]
--- OUTSIDE RECORDS SUMMARY | 2020-12-03 09:48 | CCD ---
Author Author [facility] Organization [facility] Address Unknown Phone Unavailable Care Team Providers Care Head Setter Name Role Phone Jane Xie Unavailable PROBLEMS Type Condition ICD9-CM Code XYU18-QG Code Onset Dates Condition S tatus SNOMED Code Notes Problem Hypertensive urgency I16.0 Active 580742121 Problem Abnormal uterine bleeding (AUB) N93.9 Active 14914150732290 ALLERGIES Allergen (clinical drug ingredient) Drug/Non Drug Allergy do cumented on EMR Reaction Allergy Type Onset Date Status sulfamethoxazole / trimethoprim Bactrim([facility] Code:[address]-06) unknown Drug Allergy Active Bee Pollen(ND Code:[address]-97) Rash Drug Allergy Active amoxicillin Amoxicillin(ND Code:[address]-96) unknown Drug Aller gy Active ENCOUNTERS from 1986 to 2020-11-01 Encounter Location Date Provider Diagnosis [facility] [address] [place] [phone] Aug, Jane Xie Abnormal uterine ble eding (AUB) N93.9 and Screening for malignant neoplasm of cervix Z12.4 IMMUNIZATIONS No Information SOCIAL HISTORY Tobacco Use: [...] REASON FOR REFERRAL No Information VITAL SIGNS Weight 176 lbs Aug, Height 63 in Aug, BMI 31.17 kg/m2 Aug, Blood pressure systolic 154 mm Hg Aug, Blood pressure diastolic 92 mm Hg Aug, MEDICATIONS Medication SIG (Take, Route, Frequency, Duration) [...] day(s) Aug, Not-Taking PROCEDURES No Information RESULTS Component Value Reference Range PAP REQUEST FOR SERVICE Reviewed date:10/31/2020 15:32:36 Interpretation: Performing Lab:[facility], [facility] [address] [address] , ,[facility]01 REASON FOR VISIT referral- pelvic pain, lesions on uterus MEDICAL (GENERAL) HISTORY Type Description Date Medical History hypertension Medical History Hypothyroidism Surgical History tubal ligation 2010 Surgical History thyroidectomy 2011 Surgical History uterine ablation 2012, 2014 Hospitalization History see above Goals Section No Information Health Concerns No Information MEDICAL EQUIPMENT No Information MENTAL STATUS No Information FUNCTIONAL STATUS No Information ASSESSMENTS Encounter Date Diagnosis Assessment Notes Treatment Notes Treatm ent Clinical Notes Aug, Abnormal uterine bleeding (AUB) (ICD-10 - N93.9) I discussed treatment options with patient include hysterectomy and medical management. Would not advise for ablation considering she has had a previous ablation which has failed. She will consider these options and will follow-up to discuss course of action Aug, Screening for malignant neoplasm of cervix (ICD- 10 - Z12.4) PLAN OF TREATMENT Treatment Notes Assessment Notes Clinical Notes Abnormal uterine bleeding (AUB) I discus sed treatment options with patient include hysterectomy and medical management. Would not advise for ablation considering she has had a previous ablation which has failed. She will consider these options and will follow-up to discuss course of action Treatment Notes Test Name Order Date THIN PREP PAP 2020-11-01 Next Appt Details Provider Name:Halle Villafuertejac, 2020-11-12 10:40:00 AM, [address] [place] [address], [phone], Provider Name:Jane Parishn, 2021-01-16 0 1:00:00 PM, [address] [place] [address], [phone], Provider Name:Jane Parishconcepcion 2021-01-23 0 7:30:00 AM, [address] [place] [address], [phone], Provider Name:Jane Nelson Xie, 2021-02-08 0 8:20:00 AM, [address] [place] [address], [phone], Provider Name:Jane Nelson Rojas, 2021-03-05 0 8:20:00 AM, [address] [place] [address], [phone], Insurance Providers Payer Name Payer Address Payer Phone Insured Name Patient Relati onship to Insured Coverage Start Date Coverage End Date BCBS KIRK SUÁREZ PPO [phone] [facility] [place] [address] GIL COTTO self
--- OUTSIDE RECORDS SUMMARY | 2020-12-03 09:49 | CCD ---
Author Author [facility] Organization [facility] Address Unknown Phone Unavailable Support Name Relationship Address Phone SMC* Next Of Kin [address] [place] [address] [employer] Next Of Kin [address] [place] [address] Monty Taylor Next Of Kin Unknown Unavailable Joy Loredo Next Of Kin [address] [place] [address] UE Next Of Kin Unknown Unavailable ASHWINI CHILDRESS Next Of Kin [address] [place] [address] MONTY AMADOR Next Of Kin [address] [place] [address] Jaylan Dias MD Next Of Kin [address] [place] [address] [employer] Next Of Kin [address] [place] [address] [employer] [place] Next Of Kin [address] [place] [address] Maggie Pedraza DMD Next Of Kin [address] [place] [address] [employer] [place] [address] DEVI CHILDRESS Next Of Kin [address] [place] [address] [employer] Next Of Kin [address] [place] [address] MONTY TAYLOR Next Of Kin [address] [place] [address] [facility] [place] [address] Unavailable MONTY BUTLER Next Of Kin [address] [place] [address] GIL CASTANON Next Of Kin [address] [place] [address] MONTY TAYLOR ECON [address] [facility] [place] [place] [address] Unavailable Care Team Providers Care Cupola Patcher Name Role Phone Desmond, A Joy SCRAPER HAND Unavailable Unavailable Desmond, A Joy SCRAPER HAND Unavailable Unavailable Desmond, A Joy SCRAPER HAND Unavailable Unavailable Desmond, A Joy SCRAPER HAND Unavailable Unavailable Desmond, A Joy SCRAPER HAND Unavailable Unavailable Desmond, A Joy SCRAPER HAND Unavailable Unavailable Desmond, A Joy SCRAPER HAND Unavailable Unavailable Desmond, A Joy SCRAPER HAND Unavailable Unavailable Desmond, A Joy SCRAPER HAND Unavailable Unavailable Desmond, A Joy SCRAPER HAND Unavailable Unavailable Desmond, A Joy SCRAPER HAND Unavailable Unavailable Desmond, A Joy SCRAPER HAND Unavailable Unavailable Desmond, A Joy SCRAPER HAND Unavailable Unavailable Desmond, A Joy SCRAPER HAND Unavailable Unavailable Desmond, A Joy SCRAPER HAND Unavailable Unavailable Desmond, A Joy SCRAPER HAND Unavailable Unavailable [place], A Joy SCRAPER HAND Unavailable Unavailable [place], A Joy SCRAPER HAND Unavailable Unavailable [place], A Joy SCRAPER HAND Unavailable Unavailable [place], A Joy SCRAPER HAND Unavailable Unavailable [place], A Joy SCRAPER HAND Unavailable Unavailable Desmond, A Joy SCRAPER HAND Unavailable Unavailable [place], A Joy SCRAPER HAND Unavailable Unavailable Desmond, A Joy SCRAPER HAND Unavailable Unavailable [place], A Joy SCRAPER HAND Unavailable Unavailable Desmond, A Joy SCRAPER HAND Unavailable Unavailable Desmond, A Joy SCRAPER HAND Unavailable Unavailable Scordo, M Tanika PA Unavailable Unavailable Scordo, M Tanika PA Unavailable Unavailable Scordo, M Tanika PA Unavailable Unavailable Scordo, M Tanika PA Unavailable Unavailable Scordo, M Tanika PA Unavailable Unavailable Scordo, M Tanika PA Unavailable Unavailable Scordo, M Tanika PA Unavailable Unavailable Scordo, M Tanika PA Unavailable Unavailable Scordo, M Tanika PA Unavailable Unavailable Scordo, M Tanika PA Unavailable Unavailable Scordo, M Tanika PA Unavailable Unavailable Scordo, M Tanika PA Unavailable Unavailable Scordo, M Tanika PA Unavailable Unavailable Scordo, M Tanika PA Unavailable Unavailable Scordo, M Tanika PA Unavailable Unavailable Scordo, M Tanika PA Unavailable Unavailable Scordo, M Tanika PA Unavailable Unavailable Scordo, M Tanika PA Unavailable Unavailable Scordo, M Tanika PA Unavailable Unavailable Scordo, M Tanika PA Unavailable Unavailable Scordo, M Tanika PA Unavailable Unavailable Scordo, M Tanika PA Unavailable Unavailable Scordo, M Tanika PA Unavailable Unavailable Scordo, M Tanika PA Unavailable Unavailable Scordo, M Tanika PA Unavailable Unavailable Scordo, M Tanika PA Unavailable Unavailable Scordo, M Tanika PA Unavailable Unavailable Scordo, M Tanika PA Unavailable Unavailable Scordo, M Tanika PA Unavailable Unavailable Scordo, M Tanika PA Unavailable Unavailable Scordo, M Tanika PA Unavailable Unavailable Scordo, M Tanika PA Unavailable Unavailable Scordo, M Tanika PA Unavailable Unavailable Scordo, M Tanika PA Unavailable Unavailable Scordo, M Tanika PA Unavailable Unavailable Scordo, M Tanika PA Unavailable Unavailable Scordo, M Tanika PA Unavailable Unavailable Scordo, M Tanika PA Unavailable Unavailable Scordo, M Tanika PA Unavailable Unavailable Scordo, M Tanika PA Unavailable Unavailable Joy Logan SCRAPER HAND SCRAPER HAND Unavailable Unavailable Re-disclosure Warning The records that you are about to access may contain information from federally-assisted alcohol or drug abuse programs. If such information is present, then the following federally mandated warning applies: This information has been disclosed to you from records protected by federal confidentiality rules (42 CFR part 2). The federal rules prohibit you from making any further disclosure of this information unless further disclosure is expressly permitted by the written consent of the person to whom it pertains or as otherwise permitted by 42 CFR part 2. A general authorization for the release of medical or other information is NOT sufficient for this purpose. The Federal rules restrict any use of the information to criminally investigate or prosecute any alcohol or drug abuse patient.The records that you are about to access may contain highly sensitive health information, the redisclosure of which is protected by Article 27-F of the [facility] Public Health law. If you continue you may have access to information: Regarding HIV / AIDS; Provided by facilities licensed or operated by the [facility] Office of Mental Health; or Provided by the [facility] Office for People With Developmental Disabilities. If such information is present, then the following [facility] mandated warning applies: This information has been disclosed to you from confidential records which are protected by state law. State law prohibits you from making any further disclosure of this information without the specific written consent of the person to whom it pertains, or as otherwise permitted by law. Any unauthorized further disclosure in violation of state law may result in a fine or skilled nursing sentence or both. A general authorization for the release of medical or other information is NOT sufficient authorization for further disc losure. Family History Family Member Name Family Member Gender Family Member Status Date o f Status Description Data Source(s) Unknown Unknown Problem [facility] Encounters Encounter Providers Location Date Indications Data Source(s ) Tanika Wilson PA-C: [address] [place] [address], Ph. Attender: Tanika BOSCH [facility] Medical 11/23/2020 12:00:00 AM EST FR[facility]RICK ([facility]) Unknown [address] [facility] [address] 11/12/2020 12:00:00 AM EST eCW1 ([facility]) Outpatient Attender: NEEL CHRISTIANSEN 09/27/2020 11:22:01 A M EST [facility] Tanika Wilson PA-C: [address] [place] [address], Ph. Attender: Tanika BOSCH [facility] Medical 09/27/2020 12:00:00 AM EST FR[facility]RICK ([facility]) Tanika Wilson PA-C: [address] [place] [address], Ph. Attender: Tanika BOSCH [facility] Medical 09/27/2020 12:00:00 AM EST FR[facility]RICK ([facility]) Outpatient [address] [facility] [address] 08/30/2020 12:00:00 AM EDT eCW1 [facility]) Outpatient Attender: Joy HEARTP FP 08/16/2020 08:2 7:03 AM EDT [facility] Outpatient Attender: NEEL SHAIKH FP 08/16/2020 08:27:02 A M EDT [facility] Outpatient Attender: Joy Desmond HEARTP FP 08/07/2020 09:0 1:00 AM EDT [facility] Outpatient Attender: NEEL HEARTP FP 08/07/2020 09:00:59 A M EDT [facility] Outpatient Attender: NEEL HEARTP FP 07/26/2020 02:54:12 P M EDT [facility] Outpatient Attender: NEEL HEARTP FP 06/14/2020 10:30:01 A M EDT [facility] Outpatient Attender: Joy HEARTP FP 06/13/2020 10:1 7:01 AM EDT [facility] Outpatient Attender: Joy SHAIKH FP 05/24/2020 03:0 3:00 PM EDT [facility] Outpatient Attender: Joy HEARTP FP 05/17/2020 08:4 7:00 AM EDT [facility] Outpatient Attender: NEEL HEARTP FP 04/14/2020 12:09:14 A M EDT [facility] Outpatient Attender: NEEL HEARTP FP 04/12/2020 08:44:00 A M EDT [facility] Outpatient Attender: NEEL HEARTP FP 02/29/2020 10:30:03 A M EDT [facility] Outpatient Attender: Joyra Desmond HEARTP FP 02/29/2020 10:3 0:03 AM EDT [facility] Outpatient Attender: NEEL HEARTP FP 02/22/2020 09:01:02 P M EDT [facility] Outpatient Attender: NEEL HEARTP FP 02/22/2020 12:52:00 P M EDT [facility] Outpatient Attender: NEEL HEARTP FP 02/22/2020 12:49:00 P M EDT [facility] Outpatient Attender: NEEL HEARTP FP 02/22/2020 12:48:02 P M EDT [facility] Outpatient Attender: NEEL HEARTP FP 02/22/2020 12:28:01 P M EDT [facility] Outpatient Attender: NEEL Desmond SCRAPER [facility] 02/22/2020 12:27:00 P M EDT [facility] Outpatient Attender: NEEL Desmond SCRAPER [facility] 02/22/2020 11:19:00 A M EDT [facility] Outpatient Attender: Joy [facility] 02/12/2020 05:5 0:59 PM EDT [facility] Outpatient Attender: NEEL [facility] 01/27/2020 08:01:07 P M EDT [facility] Outpatient [facility]: [facility] 11/30/2019 01:00:02 P M [facility] Outpatient Attender: [facility] 11/01/2019 09:01:01 P M [facility] Outpatient Attender: Joy Logan [facility] 10/17/2019 02:1 0:02 PM [facility] Outpatient Attender: Joy Logan [facility] 10/17/2019 10:0 7:03 AM [facility] Outpatient Attender: NEEL Logan [facility] 10/17/2019 10:07:03 A M [facility] Outpatient Attender: Joy Logan [facility] 10/12/2019 03:0 6:02 PM [facility] Outpatient Attender: NEEL Logan [facility] 10/12/2019 02:18:01 P M [facility] Outpatient Attender: Joy Logan [facility] 10/12/2019 10:5 4:59 AM [facility] Outpatient Attender: Joy Logan [facility] 10/11/2019 01:0 5:00 PM [facility] Outpatient Attender: NEEL Logan [facility] 10/06/2019 10:33:01 A M [facility] Medications Medication Brand Name Start Date Product Form Dose Route Admi nistrative Instructions Pharmacy Instructions Status Indications Reaction Description Data Source(s) Hydrochlorothiazide 25 MG / Lisinopril 2 0 MG Oral Tablet Lisinopril- Hydrochlorothiazide 20-25 MG Lisinopril-Hydrochlorothiazide 20-25 MG 08/30/2020 12:00:00 AM EDT 1.0 {tablet} active Lisinopril-Hydrochlorothiazide 20-25 MG [facility] Hydrochlorothiazide 25 MG / Lisinopril 2 0 MG Oral Tablet Lisinopril- Hydrochlorothiazide 20-25 MG Lisinopril-Hydrochlorothiazide 20-25 MG 08/30/2020 12:00:00 AM EDT 1.0 {tablet} active Lisinopril-Hydrochlorothiazide 20-25 MG [facility]) buspirone hydrochloride 5 MG Oral Tablet buspirone 5 m g tablet buspirone 5 mg tablet completed buspirone hydro chloride 5 MG Oral Tablet BEEMER ([facility]) epinephrine 0.3 mg/0.3 mL injection, auto-injector [id number] completed [id number] 0.3 ML epinephrine 1 MG/ML Aut o-Injector BEEMER ([facility]) Clindamycin 300 MG Oral Capsule clindamycin HCl 300 mg capsule clindamycin HCl 300 mg capsule completed clindam ycin 300 MG Oral Capsule [facility] ([facility]) NITROFURANTOIN, MACROCRYSTALS 25 MG / Ni trofurantoin, Monohydrate 75 MG Oral Capsule nitrofurantoin monohydrate/macrocrystals 100 mg capsule nitrofurantoin monohydrate/macrocrystals 100 mg capsule completed nitrofurantoin, macrocrystals 25 MG / nitrofurantoin, monohydrate 75 MG Oral Capsule [facility] ([facility]) Ibuprofen 800 MG Oral Tablet ibuprofen 800 mg tablet ibuprofen 8 00 mg tablet completed ibuprofen 800 MG Oral Tablet [facility] ([facility]) Acetaminophen 325 MG / Hydrocodone Elizabeth trate 5 MG Oral Tablet hydrocodone 5 mg- acetaminophen 325 mg tablet hydrocodone 5 mg-acetaminophen 325 mg tablet completed acetaminophen 325 MG / hydrocodone bitartrate 5 MG Oral Tablet [facility] ([facility]) Fluconazole 150 MG Oral Tablet fluconazo le 150 mg tablet TAKE 1 TABLET BY MOUTH NEEDED FOR YEAST INFECTION fluconazole 150 mg tablet TAKE 1 TABLET BY MOUTH NEEDED FOR YEAST INFECTION complete d fluconazole 150 MG Oral Tablet [facility] ([facility]) Sertraline 100 MG Oral Tablet sertraline 100 mg tablet sertr mike 100 mg tablet completed sertraline 100 MG Oral Tablet [facility] ([facility]) Sertraline 100 MG Oral Tablet sertraline 100 mg tablet sertr mike 100 mg tablet completed sertraline 100 MG Oral Tablet [facility] ([facility]) Ciprofloxacin 500 MG Oral Tablet ciprofl oxacin 500 mg tablet TAKE 1 TABLET BY MOUTH TWICE DAILY ciprofloxacin 500 mg tablet TAKE 1 TABLE T BY MOUTH TWICE DAILY completed ciprofloxacin 50 0 MG Oral Tablet [facility] ([facility]) Clindamycin 300 MG Oral Capsule clindamycin HCl 300 mg capsule clindamycin HCl 300 mg capsule completed clindam ycin 300 MG Oral Capsule [facility] ([facility]) Ciprofloxacin 500 MG Oral Tablet ciprofl oxacin 500 mg tablet TAKE 1 TABLET BY MOUTH TWICE DAILY ciprofloxacin 500 mg tablet TAKE 1 TABLE T BY MOUTH TWICE DAILY completed ciprofloxacin 50 0 MG Oral Tablet [facility] ([facility]) NITROFURANTOIN, MACROCRYSTALS 25 MG / Ni trofurantoin, Monohydrate 75 MG Oral Capsule nitrofurantoin monohydrate/macrocrystals 100 mg capsule nitrofurantoin monohydrate/macrocrystals 100 mg capsule completed nitrofurantoin, macrocrystals 25 MG / nitrofurantoin, monohydrate 75 MG Oral Capsule [facility] ([facility]) Prednisone 20 MG Oral Tablet prednisone 20 mg tablet Take 2 tablets every day by oral route in the morning for 5 days. prednisone 20 mg tablet Take 2 tablets every day by oral route in the morning for 5 days. 2 completed prednisone 20 MG Oral Tablet [facility] ([facility]) Fluconazole 150 MG Oral Tablet fluconazo le 150 mg tablet TAKE 1 TABLET BY MOUTH NEEDED FOR YEAST INFECTION fluconazole 150 mg tablet TAKE 1 TABLET BY MOUTH NEEDED FOR YEAST INFECTION complete d fluconazole 150 MG Oral Tablet [facility] ([facility]) Acetaminophen 325 MG / Hydrocodone Elizabeth trate 5 MG Oral Tablet hydrocodone 5 mg- acetaminophen 325 mg tablet hydrocodone 5 mg-acetaminophen 325 mg tablet completed acetaminophen 325 MG / hydrocodone bitartrate 5 MG Oral Tablet [facility]ER ([facility]) buspirone hydrochloride 5 MG Oral Tablet buspirone 5 m g tablet buspirone 5 mg tablet completed buspirone hydro chloride 5 MG Oral Tablet [facility] ([facility]) doxycycline hyclate 100 MG Oral Capsule doxycycline hyclate 100 mg capsule TAKE 1 CAPSULE BY MOUTH TWICE DAILY doxycycline hyclate 100 mg capsule TAKE 1 CAPSULE BY MOUTH TWICE DAILY completed doxycycline hyclate 100 MG Oral Capsule FR[facility]ICK ([facility]) Prednisone 10 MG Oral Tablet prednisone 10 mg tablet TAKE 2 TABLETS BY MOUTH TWICE A DAY FOR 4 DAYS THEN 1 TAB BY MOUTH 3 TIMES A DAY FOR 4 DAYS THEN 1 TAB BY MOUTH TWICE A DAY FOR 4 DAYS THEN prednisone 10 mg tablet TAKE 2 TABLETS B Y MOUTH TWICE A DAY FOR 4 DAYS THEN 1 TAB BY MOUTH 3 TIMES A DAY FOR 4 DAYS THEN 1 TAB BY MOUTH TWICE A DAY FOR 4 DAYS THEN completed prednisone 10 MG Oral Tablet FR[facility]ICK ([facility]) doxycycline hyclate 100 MG Oral Capsule doxycycline hyclate 100 mg capsule TAKE 1 CAPSULE BY MOUTH TWICE DAILY doxycycline hyclate 100 mg capsule TAKE 1 CAPSULE BY MOUTH TWICE DAILY completed doxycycline hyclate 100 MG Oral Capsule FR[facility]ICK ([facility]) Prednisone 10 MG Oral Tablet prednisone 10 mg tablet TAKE 2 TABLETS BY MOUTH TWICE A DAY FOR 4 DAYS THEN 1 TAB BY MOUTH 3 TIMES A DAY FOR 4 DAYS THEN 1 TAB BY MOUTH TWICE A DAY FOR 4 DAYS THEN prednisone 10 mg tablet TAKE 2 TABLETS B Y MOUTH TWICE A DAY FOR 4 DAYS THEN 1 TAB BY MOUTH 3 TIMES A DAY FOR 4 DAYS THEN 1 TAB BY MOUTH TWICE A DAY FOR 4 DAYS THEN completed prednisone 10 MG Oral Tablet FR[facility]RICK ([facility]) Levothyroxine Sodium 0.2 MG Oral Tablet [Euthyrox] Euthyrox 200 mcg tablet TAKE 1 TABLET BY MOUTH ONCE DAILY IN THE MORNING ON AN EMPTY STOMACH TAKE WITH 50 MCG TABLET Euthyrox 200 mcg tablet TAKE 1 TABLET BY MOUTH ONCE DAILY IN THE MORNING ON AN EMPTY STOMACH TAKE WITH 50 MCG TABLET completed levothyroxine sodium 0.2 MG Oral Tablet [Euthyrox] [facility]ICK ([facility]) Ibuprofen 800 MG Oral Tablet ibuprofen 800 mg tablet ibuprofen 8 00 mg tablet completed ibuprofen 800 MG Oral Tablet [facility] ([facility]) epinephrine 0.3 mg/0.3 mL injection, auto-injector [id number] completed [id number] 0.3 ML epinephrine 1 MG/ML Aut o-Injector [facility]ICK ([facility]) Insurance Providers Payer name Policy type / Coverage type Policy ID Covered libertarian ID Covered libertarian's relationship to gustafson Policy [place] Plan Information BCBS OF [facility] 306/806 [id number] [facility] [id number] [place] P[place] 302/307 [id number] SP [id number] SELF PAY ONLY [id number] SP [id number] [employer] P [id number] S [id number] [employer] P [id number] S [id number] [employer] B [id number] S [id number] [employer] BCBS P [id number] S [id number] [facility] [place] UNAVAILABLE SP UNAVAILABLE BCBS/Blue Card Commercial [id number] Family Dependent [id number] [employer] BCYO P [id number] S [id number] BCBS/Blue Card Commercial [id number] Family Dependent [id number] Self Pay P [id number] S [id number] [facility] HUMANA [id number] [facility] [id number] [place] PPO 302/307 [id number] SP [id number] SELF PAY ONLY [id number] [place] PPO 302/307 [id number] SP [id number] [place] [id number] Self [id number] Sliding Fee Scale P UNAVAILABLE S UNAVAILABLE [employer] BCYO P [id number] S [id number] [place] [id number] Self [id number] [employer] BCYO P [id number] S [id number] ANSI-Commercial [id number] ANSI-Not a Secondary Insurance [id number] ANSI-Not a Secondary Insurance [id number] [employer] BCYO P [id number] S [id number] ANSI-Not a Secondary Insurance [id number] ANSI-Not a Secondary Insurance [id number] ANSI-Commercial [id number] [facility] P [id number] O [id number] 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 COMP [id number] SP [id number] SELF PAY ONLY - [id number] [employer] 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 COMP SP [facility] [id number] HU2 [id number] [facility] P [id number] O [id number] D [facility]g P [id number] S [id number] [employer] INS WORKER COMP [id number] SP [id number] [employer] [place] [id number] SP [id number] Prime Commercial Family Dependent U [id number] Spouse [id number] D [facility] P [id number] S [id number] HEALTH[employer] O [id number] U [id number] Problems, Conditions, and Diagnoses Code Display Name Description Problem Type Effective Dates Data Source(s) N93.9 Abnormal uterine bleeding Abnormal uterine bleeding (A UB) Problem 08/30/2020 12:00:00 AM EDT [facility]) [id number] Acute cystitis without hematuria Acute cystitis withou t hematuria 07/26/2020 02:42:57 PM EDT [facility] 788.1 Dysuria Dysuria 07/26/2020 02:42:57 PM ED T [facility] [id number] Urinary tract infection, site not specif ied Urinary tract infection, site not specified 02/22/2020 12:46:56 PM EDT [facility] [id number] Urinary tract infectious disease Urinary Tract I nfectious Disease Problem 02/22/2020 12:00:00 AM EDT - 09/27/2020 12:00:00 AM LARA ALCALA ([facility]) [id number] Urinary tract infectious disease Urinary Tract I nfectious Disease Problem 02/22/2020 12:00:00 AM EDT - 09/27/2020 12:00:00 AM LARA ALCALA ([facility]) [id number] Clinical finding Clinical Finding Problem 019 12:00:00 AM EDT - 09/27/2020 12:00:00 AM ELVA ALCALA ([facility]) [id number] Clinical finding Clinical Finding Problem 019 12:00:00 AM EDT - 09/27/2020 12:00:00 AM ELVA ALCALA ([facility]) [id number] Influenza vaccine needed Influenza Vaccine Needed Pro blem 12/06/2018 12:00:00 AM EST - 09/27/2020 12:00:00 AM ELVA ALCALA ([facility]) [id number] Influenza vaccine needed Influenza Vaccine Needed Pro blem 12/06/2018 12:00:00 AM EST - 09/27/2020 12:00:00 AM ELVA ALCALA ([facility]) [id number] Under immunized Under Immunized Problem 9 12:00:00 AM EST - 09/27/2020 12:00:00 AM ELVA ALCALA ([facility]) [id number] Under immunized Under Immunized Problem 9 12:00:00 AM EST - 09/27/2020 12:00:00 AM ELVA ALCALA ([facility]) [id number] Traumatic injury by site Traumatic Injury by Site Prob gail 09/07/2018 12:00:00 AM EDT - 09/27/2020 12:00:00 AM ELVA ALCALA ([facility]) [id number] Traumatic injury by site Traumatic Injury by Site Prob gail 09/07/2018 12:00:00 AM EDT - 09/27/2020 12:00:00 AM ELVA ALCALA ([facility]) Results ID Date Data Source [id number] 11/01/2020 03:09:00 PM EST FRED[facility]ICK ([facility]) Name Value Range Interpretation Code Description Data Lissette rce(s) Supporting Document(s) thyroid stimulating hormone 5.160 uIU/mL 0.358-3.740 Above high no rmal Thyroid Stimulating Hormone [facility]RICK ([facility]) free T4 1.13 NG/dL 0.76-1.46 normal Free T4 BEEMER ([facility]) ID Date Data Source [id number] 11/01/2020 03:09:00 PM EST FR[facility]ICK ([facility]) Name Value Range Interpretation Code Description Data Lissette rce(s) Supporting Document(s) triglycerides level 606 mg/dL <150 Above high normal Triglycer ides Level BE[facility]ER ([facility]) HDL cholesterol 31 mg/dL >40 Below low normal HDL Cholestero l BEEMER ([facility]) cholesterol level 202 mg/dL <200 Above high normal Cholesterol Level [facility]ER ([facility]) non-HDL-C 171 mg/dL normal Non-hdl-c [facility]ER ([facility]) cholesterol risk ratio <5 Above high normal Choles terol Risk Ratio [facility]) ID Date Data Source [id number] 11/01/2020 03:09:00 PM EST FREDRICK ([facility]) Name Value Range Interpretation Code Description Data Lissette rce(s) Supporting Document(s) glucose, fasting 102 mg/dL 70-100 Above high normal Glucose, Fas ting [facility]ICK ([facility]) blood urea nitrogen 10 mg/dL 7-18 normal Blood Urea Nitro gen FREDRICK ([facility]) creatinine for GFR 0.87 mg/dL 0.55-1.30 normal Creatinine for GF R [facility]) glomerular filtration rate > 60.0 >60 normal Glomerula r Filtration Rate FREDRICK ([facility]) chloride level 105 mEq/L 98-107 normal Chloride Level BEEMER ([facility]) sodium level 138 mEq/L 136-145 normal Sodium Level FREDRICK ([facility]) potassium serum 3.9 mEq/L 3.5-5.1 normal Potassium Serum ATHE ([facility]) anion gap 7 mEq/L 8-16 Below low normal Anion Gap FREDRICK ( [facility]) carbon dioxide level 26 mEq/L 21-32 normal Carbon Dioxide Level FREDRICK ([facility]) calcium level 9.7 mg/dL 8.5-10.1 normal Calcium Level FREDRICK ( [facility]) ALT/SGPT 44 U/L 12-78 normal ALT/SGPT FREDRICK ([facility]) alkaline phosphatase 77 U/L 45-117 normal Alkaline Phosph atase FREDRICK ([facility]) AST/SGOT 22 U/L 7-37 normal AST/SGOT FREDRICK ([facility]) total protein 7.3 gm/dL 6.4-8.2 normal Total Protein FREDRICK ( [facility]) bilirubin,total 0.4 mg/dL 0.2-1.0 normal Bilirubin,total ATHE ([facility]) albumin/globulin ratio 1.2-2.2 normal Albumin/globu luciano Ratio FREDRICK ([facility]) albumin 4.2 gm/dL 3.2-5.2 normal Albumin FREDRICK ([facility]) ID Date Data Source [id number] 11/01/2020 03:09:00 PM EST FREDRICK ([facility]) Name Value Range Interpretation Code Description Data Lissette rce(s) Supporting Document(s) white blood count 9.3 10 4.0-10.0 normal White Blood Count FREDRICK ([facility]) hematocrit 41.9 % 36.0-47.0 normal Hematocrit FREDRICK ([facility]) hemoglobin 14.6 g/dL 12.0-15.5 normal Hemoglobin FREDRICK ([facility]) red blood count 4.61 10 4.00-5.40 normal Red Blood Count ATHE ([facility]) mean corpuscular hemoglobin 31.7 pg 27.0-33.0 normal Mean Corpuscular Hemoglobin FREDRICK ([facility]) mean corpuscular HGB conc 34.8 g/dL 32.0-36.5 normal Mean Corpu scular HGB Conc FREDRICK ([facility]) red cell distribution width 11.9 % 11.5-14.5 normal Red Cell Distribution Width FREDRICK ([facility]) mean corpuscular volume 90.9 fL 80.0-96.0 normal Mean Corpusc ular Volume FREDRICK ([facility]) mono % 7.0 % 0.0-5.0 Above high normal [place] % FREDRICK ([facility]) neutrophils % 66.9 % 36.0-66.0 Above high normal Neutrophils % A THENA ([facility]) platelet count, automated 242 10 150-450 normal Platelet C ount, Automated BEEMER ([facility]) lymph % 24.2 % 24.0-44.0 normal Lymph % BEEMER ([facility]) eos % 1.0 % 0.0-3.0 normal Eos % BEEMER ([facility]) nucleated red blood cell % 0.0 % 0-0 normal Nucleated Red Blood Cell % FREDRICK ([facility]) baso % 0.4 % 0.0-1.0 normal Baso % BEEMER ([facility]) immature granulocyte % 0.5 % 0-3.0 normal Immature Gran ulocyte % BEEMER ([facility]) lymph # 2.3 10 1.5-5.0 normal Lymph # BEEMER ([facility]) neutrophils # 6.3 10 1.5-8.5 normal Neutrophils # FREDRICK ( [facility]) mono # 0.7 10 0.0-0.8 normal [place] # FREDRICK ([facility]) eos # 0.1 10 0.0-0.5 normal Eos # FREDRICK ([facility]) baso # 0.0 10 0.0-0.2 normal Baso # FREDRICK ([facility]) ID Date Data Source [id number] 10/08/2020 12:00:00 AM EST [facility] Name Value Range Interpretation Code Description Data Lissette rce(s) Supporting Document(s) 2019-nCoV RNA XXX HERNÁN+probe-Imp [facility] This lab was ordered by [facility] and reported by [facility]. ID Date Data Source PAP REQUEST FOR SERVICE 08/30/2020 12:00:00 AM EDT eCW1 ([facility]) Name Value Range Interpretation Code Description Data Lissette rce(s) Supporting Document(s) PAP REQUEST FOR SERVICE [facility]CW[facility] ( [facility]) ID Date Data Source [id number] 07/26/2020 02:20:00 PM EDT [facility] Name Value Range Interpretation Code Description Data Lissette rce(s) Supporting Document(s) URINECULTRTN NO GROWTH N [facility] ID Date Data Source [id number] 07/26/2020 02:14:02 PM EDT [facility] Measurements & CalculationsHeight: 63 inches (5 ft. 3 in.) 160.02 cm Weight: 172.2 pounds 78.27 kg Body Mass Index (BMI): 30.61BMI Interpretation: ObeseBody Surface Area (BSA): 1.82Weight Management Education Done (Nutrition/Physical Activity)Vital SignsTemperature: 98.0F 36.67C tympanic Pulse Rate: 94 beats/minuteRespiratory Rate: 18 respirations/minuteBlood Pressure: 159/114 left arm sitting automaticO2 Saturation: 98% Vital Signs performed by: Lianne Palmer LPN, July 26, 2020 2:14 PMMultiple Vital SignsVitals #2BP: 168/132 Performed by: Lianne Palmer LPN, July 26, 2020 2:45 PMLabs In-House Urine TestsDate/Time Collected: July 26, 2020 2:44 PMDate/Time Received: July 26, 2020 2:44 PMTest Result Reference Range Normal ValueRoutine Urinalysis Color: straw Yellow Appearance: clear Clear Leukocytes: negative Negative Nitrite: negative Negative Urobilinogen: 3.5 Negative Protein: 0.15 Negative pH: 8.0 5.0-6.5 Blood: negative Negative Specific [place]: 1.010 1.020>=1.030 Ketone: negative Negative Bilirubin: negative Negative Glucose: negative NegativeCodiego Palmer LPN, July 26, 2020 2:44 PMInitial Intake Information From: patientRoom #: 1Infectious Disease / Travel ScreeningRecent travel for you or any close contacts? NoHave you had any close contact with anyone diagnosed with or under investigation for COVID-19 (coronavirus)? NoFever? NoRespiratory symptoms: cough, cold, congestion, shortness of breath, difficulty breathing? NoLoss of smell? NoLoss of taste? NoSmoking, Tobacco, Vaping or Smoke Exposure StatusSmoke Status: never smokerTobacco Use: NoDo you vape? NoPassive Smoke Exposure: NoMenstrual HistoryLast Menstrual Period (LMP): 07/12/2020LMP History: ApproximateComments: abrasionHealthcare HistorySince your last office visit...Have you been admitted to the hospital? NoHave you been to an emergency room (ER) or urgent care clinic? No - 07/13/18-Urgent care- Headache, High BP. Pt was [facility] to [facility] ER for elevated BPHave you [facility] another [facility]? NoHave you seen a dentist? No - aqua dentalIntake performed by: Lianne Palmer LPN, July 26, 2020 2:14 PMRate Your HealthIn general, would you say your health is? GoodDepression Screening - PHQ-2Over the last two weeks, have you... Had little interest or pleasure in doing things? Not at all Been feeling down, depressed, or hopeless? Not at all PHQ-2 Score: 0Anxiety Screening - RAJIV-2Over the last two weeks, have you been... Feeling nervous, anxious, or on edge? Not at all Unable to stop or control worrying? Not at all RAJIV-2 Score: 0Food InsecurityWithin the past year...Did you worry whether your food would run out before you got money to buy more? Never trueWas there a time when the food you bought didn't last and you didn't have money to get more? Never trueScreening, Brief Intervention, & Referral to Treatment (SBIRT)Pre-Screening Questions How many times have you have 4 or more drinks in a day? 0How many times have you used an illegal drug or used a prescription medication for a non-medical reason? 0Performed by: Lianne Palmer LPN, July 26, 2020 2:15 PMPatient History Medical History:HypothyroidismHypertensionSurgical History:Thyroidectomytubal ligationablasionTonsillectomyFamily History:Hypothyroidism (Mother)Social/Personal History: Chief Complaintpossible utiHistory of Present Illness (HPI)35 yo female presents for possible UTI.Pt reports painful urination and increased frequency, started on 07/17/2020. Pt started Azo on 07/20/2020. She started an old prescription of Clindamycin 300mg twice daily x 4 days (from wisdom tooth extraction), felt significant relief while on the antibiotic. Took 3 days after stopping the antibiotics for symptoms to return. Pt didn't take her BP medication today, forgot. HPI performed by: Shorty BOSCH, July 26, 2020 2:22 PMProblem ReviewProblem List was reviewed and/or updated during this visit.Medication Reconciliation & ReviewMedication List was reviewed and/or updated during this visit, including review of any esri-ofh-yrdmnrp medications, herbal therapies, and/or supplements.Allergy ReviewAllergy List was reviewed and/or updated during this visit.Adult Preventive CareLabs/Meds/Other Counseling-Nutrition and Physical Activity:BMI Interpretation: Obese (07/26/2020) Counseling: Done (07/26/2020) Physical Activity: Done (07/26/2020)Review of Systems General: Denies loss of appetite, chills, dizziness, fatigue, fever. Cardiovascular: Denies chest pain, palpitations, feeling faint. Respiratory: Denies cough, difficulty breathing, shortness of breath. Gastrointestinal: Denies nausea, vomiting, diarrhea, constipation. Genitourinary: Complains of pain with urination, urinary frequency. Denies blood in urine, pelvic pain, vaginal discharge. Musculoskeletal: Denies back pain. Skin: Denies rash, itching. Neurologic: Denies weakness, feeling faint. Physical ExamGeneral Appearance: well nourished, well hydrated, no acute distressEyes, External: conjunctivae and lids normal, EOMIRespiratory, Auscultation: clear to auscultation bilaterally; no rales, rhonchi, or wheezesCardiovascular, Auscultation: S1, S2 audible; no murmur, rub, or gallop; RRRPeripheral Circulation: no clubbing, cyanosis, edema, or varicositiesAbdomen: soft, non-tender, no masses, bowel sounds normalGait & Station: normalOrientation: oriented to time, place, and personJudgment & Insight: intactRate Your HealthIn general, would you say your health is? GoodAssessment & Plan Problems:Added: Dysuria (ICD-788.1) (ISK03-E38.0) Assessment: Instructions: Urine sent for culture.Acute cystitis without hematuria (ICD10- N30.00) Assessment: Instructions: Start Macrobid twice daily x 5 days. Take antibiotics as prescribed, finish full course even if symptoms resolve. Antibiotics may cause stomach upset, recommend eating yogurt or taking probiotic while on antibiotics. Diflucan to use only if yeast infection symptoms begin. Urine was sent for culture today, we will call you if antibiotic needs to be started or changed based on culture. Stay well hydrated, empty bladder fully and frequently. Follow-up sooner for worsening symptoms, or ER for severe pain, back pain, fever, vomiting.Assessed:Essential (primary) hypertension (ICD10- I10) Assessment: Instructions: Please take your BP medication as prescribed, BP is very high today.Removed:Urinary tract infection, site not specified (NOT25-Q77.0), Unspecified injury of left wrist, hand and finger(s), initial encounter (ICD-959.3) (KQC01-P74.92xA)Patient Instructions/Care Plan: Dysuria: Urine sent for culture.Acute cystitis without hematuria: Start Macrobid twice daily x 5 days. Take antibiotics as prescribed, finish full course even if symptoms resolve. Antibiotics may cause stomach upset, recommend eating yogurt or taking probiotic while on antibiotics. Diflucan to use only if yeast infection symptoms begin. Urine was sent for culture today, we will call you if antibiotic needs to be started or changed based on culture. Stay well hydrated, empty bladder fully and frequently. Follow-up sooner for worsening symptoms, or ER for severe pain, back pain, fever, vomiting.Essential (primary) hypertension: Please take your BP medication as prescribed, BP is very high today. Plan developed in collaboration with patient and/or familyMedications:DIFLUCAN 150 MG ORAL TABLETMACROBID 100 MG ORAL CAPSULELEVOTHYROXINE SODIUM 200 MCG ORAL TABLETLEVOTHYROXINE SODIUM 50 MCG ORAL TABLETZESTORETIC 20-25 MG ORAL TABLETMedication Changes:New Prescription:MACROBID 100 MG ORAL CAPSULE-Take 1 capsule po BID Qty: 10[Capsule] Refills: 0 Method: ElectronicDIFLUCAN 150 MG ORAL TABLET-Take 1 tablet po once as needed for yeast infection Qty: 1[Tablet] Refills: 0 Method: ElectronicRemoved:FLUCONAZOLE 150 MG ORAL TABLET-1 tab by mouth now and repeat in 3 days if symptoms persist Qty: 2[Tablet] Refills: 0, BUSPIRONE HCL 5 MG ORAL TABLET-1 tab by mouth twice per day as needed for anxiety Qty: 60[Tablet] Refills: 0, ZOLOFT 100 MG ORAL TABLET-take one yablet by mouth daily Qty: 30[Tablet] Refills: 2Allergies:AMOXICILLIN (Critical)BACTRIM (Critical)VANCOMYCIN (Critical)* BEE STINGS (Critical)Orders:Urinalysis- automated [CPT-09438] Urine Culture & Sensitivity [CPT-84499] Adult - Ofc Vst, EST, Level III [CPT-77550] Follow-Up Return to clinic: as needed Clinical Visit Summary DeclinedMedications:DIFLUCAN 150 MG ORAL TABLET (FLUCONAZOLE) Take 1 tablet po once as needed for yeast infection #1[Tablet] x 0 Route:ORAL Entered and Authorized by: Shorty BOSCH Method used: Electronically to [facility]* (retail) [id number] [place] [address] Note to Pharmacy: Route: ORAL; Indications: ACUTE CYSTITIS WITHOUT HEMATURIA;DYSURIA RxID: [id number] 100 MG ORAL CAPSULE (NITROFURANTOIN MONOHYD MACRO) Take 1 capsule po BID #10[Capsule] x 0 Route:ORAL Entered and Authorized by: Shorty BOSCH Method used: Electronically to [facility]* (retail) [address] [place] [address] Note to Pharmacy: Route: ORAL; Indications: ACUTE CYSTITIS WITHOUT HEMATURIA;DYSURIA RxID: [id number] ZOLOFT 100 MG ORAL TABLET (SERTRALINE HCL) take one yablet by mouth daily #30[Tablet] x 2 Route:ORAL Entered by: Lianne Palmer LPN Authorized by: Joy SHAIKH Method used: Electronically to [facility] (retail) [address] [place] [address] [address] [place] [address] RxID: [id number] BUSPIRONE HCL 5 MG ORAL TABLET (BUSPIRONE HCL) 1 tab by mouth twice per day as needed for anxiety #60[Tablet] x 0 Route:ORAL Entered by: Lianne Palmer LPN Authorized by: Vesta HICKS Method used: Electronically to [facility]* (retail) [address] [place] [address] [address] [place] [address] RxID: [id number] FLUCONAZOLE 150 MG ORAL TABLET (FLUCONAZOLE) 1 tab by mouth now and repeat in 3 days if symptoms persist #2[Tablet] x 0 Route:ORAL Entered by: Lianne Palmer LPN Authorized by: Vesta HICKS Method used: Electronically to [facility]* (retail) [address] [place] [id number] RxID: [id number] signed by Shorty BOSCH on 08/16/2020 at 8:26 AM Name Value Range Interpretation Code Description Data Lissette rce(s) Supporting Document(s) ID Date Data Source [id number] 07/26/2020 02:14:02 PM EDT [facility] Name Value Range Interpretation Code Description Data Lissette rce(s) Supporting Document(s) [facility] BILIRUBIN UR negative [facility] BLOOD UR DIP negative [facility] GLUCOSE, URN negative [facility] KETONES URN negative [facility] NITRITE URN negative [facility] PH URINE 8.0 [facility] PROTEIN, URN 0.15 [facility] SPEC GR URIN 1.010 [facility] UA COLOR straw [facility] UROBILINOGEN 3.5 [facility] WBC DIPSTK U negative [facility] ID Date Data Source [id number] 02/22/2020 12:48:00 PM EDT [facility] Name Value Range Interpretation Code Description Data Lissette rce(s) Supporting Document(s) URINECULTRTN NO GROWTH N [facility] ID Date Data Source [id number] 02/22/2020 12:26:31 PM EDT [facility] Measurements & CalculationsHeight: 63 inches (5 ft. 3 in.) 160.02 cm Weight: 180 pounds 1 oz. 81.85 kg Body Mass Index (BMI): 32.01BMI Interpretation: ObeseBody Surface Area (BSA): 1.85Weight Management Education Done (Nutrition/Physical Activity)Vital SignsTemperature: 98.1FPulse Rate: 97 beats/minuteRespiratory Rate: 14 respirations/minuteBlood Pressure: 152/105 Vital Signs performed by: Delia Hinds, February 22, 2020 12:28 PMVital Signs performed by: Delia Hinds, February 22, 2020 12:28 PMInitial Intake Information from: patientRoom #: 11Smoking, Tobacco, Vaping or Smoke Exposure StatusSmoke Status: never smokerDo you vape? NoPassive Smoke Exposure: NoMenstrual HistoryLast Menstrual Period (LMP): 02/01/2020Any possibility of ? NoHealthcare HistorySince your last office visit...Have you been admitted to the hospital? NoHave you been to an emergency room (ER) or urgent care clinic? NoHave you seen another healthcare provider? NoHave you seen a dentist? NoRate Your HealthIn general, would you say your health is? GoodPain AssessmentAre you currently having any pain which... You would like your provider to address? No Affects your activity level? NoDepression Screening - PHQ-2Over the last two weeks, have you... Had little interest or pleasure in doing things? Not at all Been feeling down, depressed, or hopeless? Not at all PHQ-2 Score: 0Anxiety Screening - RAJIV-2Over the last two weeks, have you been... Feeling nervous, anxious, or on edge? Not at all Unable to stop or control worrying? Not at all RAJIV-2 Score: 0Infectious Disease / Travel ScreeningRecent travel for you or any close contacts? NoHave you had any close contact with anyone diagnosed with or under investigation for COVID-19 (coronavirus)? NoHave you had any of the following symptoms recently? Fever? NoRespiratory symptoms: cough, cold, congestion, shortness of breath, difficulty breathing? NoScreening, Brief Intervention, & Referral to Treatment (SBIRT)Pre-Screening Questions How many times have you have 4 or more drinks in a day? 0How many times have you used an illegal drug or used a prescription medication for a non-medical reason? 0Performed by: Delia Hinds, February 22, 2020 12:30 PMPatient History Medical History:HypothyroidismHypertensionSurgical History:Thyroidectomytubal ligationablasionTonsillectomyFamily History:Hypothyroidism (Mother)Social/Personal History: Chief Complaintuti symptoms for last week, urgency, pressure, buringHistory of Present Illness (HPI)Telemedicine visit with patient's location at [facility] and provider's location at offsite office. Additional person(s)participating in the visit: n/a. Pt here today for possible UTI, symptmo started last week, including dysuria, urgency, pelvic pressure. She has been taking AZO OTC. She is sexually active wth one male partner. No vaginal symptoms.HPI performed by: Vesta HICKS, February 22, 2020 12:38 PMProblem ReviewProblem List was reviewed and/or updated during this visit.Medication Reconciliation & ReviewMedication List was reviewed and/or updated during this visit, including review of any over -the-counter medications, herbal therapies, and/or supplements.Allergy ReviewAllergy List was reviewed and/or updated during this visit.Adult Preventive CareProvider Calculated and Reviewed all Clinical Protocols for patient today. Labs/Meds/Other Counseling-Nutrition and Physical Activity:BMI Interpretation: Obese (02/22/2020) Counseling: Done (02/22/2020) Physical Activity: Done (02/22/2020)Review of Systems General: Denies chills, fever, headache, feeling ill, sweats, night sweats. Genitourinary: Complains of pain with urination, burning with urination, urinary frequency, urinary urgency, pelv ic pain. Denies blood in urine. Physical ExamGeneral Appearance: well nourished, well hydrated, no acute distressEyes, External: conjunctivae and lids normal, EOMIHearing: grossly intactRespiratory, Effort: no intercostal retractions or use of accessory musclesGait & Station: normalOrientation: oriented to time, place, and personMood & Affect: no depression, anxiety, or agitationJudgment & Insight: intactMemory: intact for recent and remote eventsRate Your HealthIn general, would you say your health is? GoodAssessment & Plan Problems:Added: Urinary tract infection, site not specified (PBX53-F23.0) Assessment: UA POC + will treat with Cipro, send out for cult and GCCT. Instructions: Your prescriptions have been sent to your preferred pharmacy electronically, please take them as prescribed and report any significant side effects. You have had blood work or a urine sample taken today. We will notify you within 7 days of any abnormal results. If everything is normal, you will not hear from us. You can check the portal or call if you want as well.Patient Instructions/Care Plan: Urinary tract infection- site not specified: Your prescriptions have been sent to your preferred pharmacy electronically, please take them as prescribed and report any significant side effects. You have had blood work or a urine sample taken today. We will notify you within 7 days of any abnormal results. If everything is normal, you will not hear from us. You can check the portal or call if you want as well. Plan developed in collaboration with patient and/or familyMedications:CIPRO 500 MG ORAL TABLETLEVOTHYROXINE SODIUM 200 MCG ORAL TABLETBUSPIRONE HCL 5 MG ORAL TABLETLEVOTHYROXINE SODIUM 50 MCG ORAL TABLETZOLOFT 100 MG ORAL TABLETZESTORETIC 20-25 MG ORAL TABLETMedication Changes:New Prescription:CIPRO 500 MG ORAL TABLET-1 tab by mouth twice per day Qty: 6[Tablet] Refills: 0 Method: ElectronicAllergies:AMOXICILLIN (Critical)BACTRIM (Critical)VANCOMYCIN (Critical)* BEE STINGS (Critical)Orders:URINALYSIS [CPT-39725] Urine Culture [CPT-54442] Urine - Chlamydia [CPT-12062] Urine - Gonorrhea [CPT-67886] Office Visit - Established, Level 3 [CPT-70007EY] Follow-Up Return to clinic: if symptoms persist Clinical Visit Summary CompletedMedications:CIPRO 500 MG ORAL TABLET (CIPROFLOXACIN HCL) 1 tab by mouth twice per day #6[Tablet] x 0 Route:ORAL Entered and Authorized by: Vesta HICKS Method used: Electronically to [facility]* (retail) [address] [place] [address] Fax: Note to Pharmacy: Route: ORAL; RxID: [id number] In-House Urine TestsDate/Time Collected: February 22, 2020 12:36 PMTest Result Reference Range Normal ValueRoutine Urinalysis Color: orange Yellow Appearance: cloudy Clear Leukocytes: 1+ Negative Nitrite: positive Negative Urobilinogen: negative Negative Protein: 2+ Negative pH: 6.0 5.0-6.5 Blood: negative Negative Specific [place]: 1.000 1.020>=1.030 Ketone: negative Negative Bilirubin: 1+ Negative Glucose: negative NegativeDelia Hinds February 22, 2020 12:37 PM Name Value Range Interpretation Code Description Data Lissette rce(s) Supporting Document(s) ID Date Data Source [id number] 10/12/2019 02:41:01 PM EST [facility] In-House Blood TestsDate/Time Colle cted: October 12, 2019 2:30 PMTest Result Reference Range Normal ValueComments: blood drawn in office. taken from right ac. tolerated well.Wilfredo Santiago MA, October 12, 2019 2:41 PMAssessment & Plan Orders:30178-Lol Vst-Est Level I [CPT-30322] 11844 - Venipuncture [CPT-19066] Name Value Range Interpretation Code Description Data Lissette rce(s) Supporting Document(s) ID Date Data Source [id number] 10/12/2019 02:30:00 PM EST [facility] Name Value Range Interpretation Code Description Data Lissette rce(s) Supporting Document(s) HCT 43.4 % 36.0-47.0 N [facility] HGB 15.5 g/dL 12.0-15.5 N [facility] MCH 35.7 G/DL pg 32.0-36.5 N [facility] MCHC 32.6 PG % 27.0-33.0 N [facility] PLATELETS 255 10 10*3/mm3 150-450 N [facility] RBC 4.75 10 10*6/mm3 4.00-5.40 N [facility] [facility] 11.9 % 11.5-14.5 [facility] WBC TOTAL 12.0 4.0-10.0 [facility] ID Date Data Source [id number] 10/12/2019 02:30:00 PM [facility] Name Value Range Interpretation Code Description Data Lissette rce(s) Supporting Document(s) T4, FREE 0.76 ng/dL 0.76-1.46 N [facility] y Health TSH 93.400 microintl units/mL 0.358-3.740 H [facility] ID Date Data Source [id number] 10/10/2019 04:10:50 PM [facility] Measurements & CalculationsHeight: 63 inches (5 ft. 3 in.) 160.02 cm Weight: 182 pounds 82.73 kg Body Mass Index (BMI): 32.36BMI Interpretation: ObeseBody Surface Area (BSA): 1.86Weight Management Education Done (Nutrition/Physical Activity)Vital SignsTemperature: 98.7FPulse Rate: 84 beats/minuteRespiratory Rate: 18 respirations/minuteBlood Pressure: 156/105 Vital Signs performed by: Halle Castaneda MA, October 10, 2019 4:20 PMInitial Intake Information from: patientInfectious Disease- Travel Have you or your sexual partner travelled outside of the country recently? NoSmoking, Tobacco or Smoke Exposure StatusSmoke Status: never smokerTobacco Use: NoPassive Smoke Exposure: NoMenstrual HistoryLast Menstrual Period (LMP): 09/07/2019Any possibility of ? NoComments: ablasion Healthcare HistorySince your last office visit...Have you been admitted to the hospital? NoHave you been to an emergency room (ER) or urgent care clinic? No - 07/13/18-Urgent care- Headache, High BP. Pt was sent to [facility] ER for elevated BPHave you seen another healthcare provider? NoHave you seen a dentist? Yes - aqua dentalRate Your HealthIn general, would you say your health is? GoodPain AssessmentAre you currently having any pain which... You would like your provider to address? No Affects your activity level? NoDepression Screening - PHQ-2Over the last two weeks, have you... Had little interest or pleasure in doing things? Several days Been feeling down, depressed, or hopeless? Several days PHQ-2 Score: 2Anxiety Screening - RAJIV-2Over the last two weeks, have you been... Feeling nervous, anxious, or on edge? Nearly every day Unable to stop or control worrying? Nearly every day RAJIV-2 Score: 6Infectious Disease- Travel Cont. Any possibility of ? NoGeneralized Anxiety Disorder 7-Item Screening (RAJIV-7)Answer Guide:0 = Not at all1 = Several days2 = Over half the days3 = Nearly every dayOver the last 2 weeks, how often have you been bothered by the following problems?Feeling nervous, anxious, or on edge: 3Not being able to stop or control worryinWorrying too much about different things: 3Trouble relaxinBeing so restless that it's hard to sit still: 3Becoming easily annoyed or irritable: 3Feeling afraid as if something awful might happen: 0Answer Guide:0 = Not difficult at all1 = Somewhat difficult2 = Very difficult3 = Extremely difficultHow difficult have these made it for you to do your work, take care of things at home, or get along with other people? 2GAD-7 Screening Results RAJIV-2 Score: 6GAD-7 Score: 18Functional Impairment: Very difficultRecommendation: Severe anxietyPHQ-9 1. Over the last 2 weeks, patient reports the following frequency of symptoms: a. Little interest or pleasure in doing things - Several days b. Feeling down, depressed, or hopeless -Several days c. Trouble falling asleep, staying asleep, or sleeping too much -Several days d. Feeling tired or having little energy -Nearly every day e. Poor appetite or overeating -Nearly every day f. Feeling bad about yourself, feeling that you are a failure, or feeling that you have let yourself or your family down -Several days g. Trouble concentrating on things such as reading the newspaper or watching television -More than half the days h. Moving or speaking so slowly that other people could have noticed. Or being so fidgety or restless that you have been moving around a lot more than usual -Nearly every day i. Thinking that you would be better off or that you want to hurt yourself in some way -Not at all2. If you checked off any problems, how difficult have these problems made it for you to do your work, take care of things at home, or get along with other people? -Very DifficultToday's PHQ-9 Results Score: 15 Severity: Moderately Severe Diagnosis Recommendation: No recommendation Functional Impairment: Very DifficultScreening, Brief Intervention, & Referral to Treatment (SBIRT)Pre-Screening Questions How many times have you have 4 or more drinks in a day? 0How many times have you used an illegal drug or used a prescription medication for a non-medical reason? 0Performed by: Halle Castaneda MA, October 10, 2019 4:17 PMPatient History Medical History:HypothyroidismHypertensionSurgical History:Thyroidectomytubal ligationablasionTonsillectomyFamily History:Hypothyroidism (Mother)Social/Person al History: Smoking Status: never smokerChief Complaintanxiety History of Present Illness (HPI)Telemedicine visit with patient's location at [facility] and provider's location at offsite office. Additional person(s)participating in the visit: her . Pt here today for lab follow up, needs TSH rechecked. She has hx of anxiety and has been taking Zoloft at 100mg daily, she takes it every night before bedtime. GAD7 and PHQ9 scores reviewed with patient. 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 She states that she gets very fidgety and has some trouble sitting still. She states that this level of anxiety has been going on for about a year. She tried Hydroxyzine for anxiety but it didn't help and caused side effects.After more questioning it seems like she hasn't been taking her Lveothyroxine, BP Meds, or Sertraline on a daily basis as she has not had refills on any of these meds in months.HPI performed by: Vesta HICKS, October 10, 2019 4:22 PMTransitions of Care InboundProblem ReviewProblem List was reviewed and/or updated during this visit.Medication Reconciliation & ReviewMedication List was reviewed and/or updated during this visit, including review of any pdoe-ujb-abhgmyc medications, herbal therapies, and/or supplements.Allergy ReviewAllergy List was reviewed and/or updated during this visit.Adult Preventive CareProvider Calculated and Reviewed all Clinical Protocols for patient today. Labs/Meds/Other Counseling- Nutrition and Physical Activity:BMI Interpretation: Obese (10/10/2019) Counseling: Done (10/10/2019) Physical Activity: Done (10/10/2019)Cancer Screening Pap Smear/HPV TestingReviewed: Previous Comments: needs one done. (03/17/2019)Today's Comments: needs referral Review of Systems General: Complains of fatigue. Denies chills, fever, headache, feeling ill, sweats. Psychiatric: Complains of depression, anxiety, feeling stressed. Denies suicidal ideation, homicidal ideation. Physical ExamGeneral Appearance: well nourished, well hydrated, no acute distressEyes, External: conjunctivae and lids normal, EOMIHearing: grossly intactRespiratory, Effort: no intercostal retractions or use of accessory musclesGait & Station: normalOrientation: oriented to time, place, and personMood & Affect: tearful, depressedJudgment & Insight: intactMemory: intact for recent and remote eventsCare Management Plan Transitions of CareInboundRate Your HealthIn general, would you say your health is? GoodAssessment & Plan Problems:Assessed:Other specified hypothyroidism (WAG10-C15.8) Assessment: States she takes 250mcg daily, only have 50mcg in the chart. Will need to verify dose. Instructions: You have had blood work or a urine sample taken today. We will notify you within 7 days of any abnormal results. If everything is normal, you will not hear from us. You can check the portal or call if you want as well.Generalized anxiety disorder (ICD-300.02) (IHU45-J50.1) Assessment: Instructions: I have entered a THERAPY referral f or you today. Our referrals department will contact you with further instructions on how to set up your appt for this referral. Please call our referrals dept if you don't hear about this referral within 2 weeks. [phone] ext [phone]. Your prescriptions have been sent to your preferred pharmacy electronically, please take them as prescribed and report any significant side effects.Generalized anxiety disorder (ICD-300.02) (QGN98-H32.1) Assessment: Referred for therapy. CPM with Sertraline 100mg and instructed pt that it really is a medicine that is most effective if taken daily. Add in Busprione for anxiety symptoms during the day PRN. RTC in 4 weeks for follow up with Joy.Other specified hypothyroidism (HHP27-N51.8) Assessment: Recheck TSH. Discussed importance of compliance with this med.Essential (primary) hypertension (ZDP33-D28) Assessment: Hasn't taken BP meds today and is not compliant. Discussed importance of taking this med daily. Discussed s/sx of prolonged HTN and risks for CVA and KS. Advised patient to go to the ER or call 911 for any ALONZO, CP, vision changes, weakness, or SOB.Patient Instructions/Care Plan: Other specified hypothyroidism: You have had blood work or a urine sample taken today. We will notify you within 7 days of any abnormal results. If everything is normal, you will not hear from us. You can check the portal or call if you want as well.Generalized anxiety disorder: I have entered a THERAPY referral for you today. Our referrals department will contact you with further instructions on how to set up your appt for this referral. Please call our referrals dept if you don't hear about this referral within 2 weeks. [phone] ext [phone]. Your prescriptions have been sent to your preferred pharmacy electronically, please take them as prescribed and report any significant side effects. Plan developed in collaboration with patient and/or familyMedications:BUSPIRONE HCL 5 MG ORAL TABLETLEVOTHYROXINE SODIUM 50 MCG ORAL TABLETZOLOFT 100 MG ORAL TABLETZESTORETIC 20-25 MG ORAL TABLETMedication Changes:Refilled:ZOLOFT 100 MG ORAL TABLET-take one yablet by mouth daily Qty: 30[Tablet] Refills: 2 Method: ElectronicZESTORETIC 20-25 MG ORAL TABLET-One tablet by mouth every day Qty: 30[Tablet] Refills: 5 Method: ElectronicNew Prescription:BUSPIRONE HCL 5 MG ORAL TABLET-1 tab by mouth twice per day as needed for anxiety Qty: 60[Tablet] Refills: 0 Method: ElectronicRemoved:HYDROXYZINE HCL 25 MG ORAL TABLET-take one tablet by mouth three times daily as needed for increased anxiety. Qty: 60[Tablet] Refills: 1, LEVOTHYROXINE SODIUM 200 MCG ORAL TABLET-One tablet by mouth every day Qty: 30[Tablet] Refills: 0Allergies:AMOXICILLIN (Critical)BACTRIM (Critical)VANCOMYCIN (Critical)* BEE STINGS (Critical)Orders:TSH [CPT-14854] T-4 free [CPT-67608] CBC W/DIFF [CPT-57872] Mental Health Consult [CPT-69955] Office Visit - Established, Level 3 [CPT-22939SK] Follow-Up Return to clinic: 4 weeks for follow up with Joy Clinical Visit Summary CompletedM edications:ZESTORETIC 20-25 MG ORAL TABLET (LISINOPRIL-HYDROCHLOROTHIAZIDE) One tablet by mouth every day #30[Tablet] x 5 Route:ORAL Entered and Authorized by: Vesta HICKS Method used: Electronically to [facility]* ([employer]) [address] [place] [address] Note to Pharmacy: Route: ORAL; RxID: [id number] 100 MG ORAL TABLET (SERTRALINE HCL) take one yablet by mouth daily #30[Tablet] x 2 Route:ORAL Entered and Authorized by: Vesta HICKS Method used: Electronically to [facility]* ([facility]) [address] [place] [address] Note to Pharmacy: Route: ORAL; RxID: [id number] HCL 5 MG ORAL TABL ET (BUSPIRONE HCL) 1 tab by mouth twice per day as needed for anxiety #60[Tablet] x 0 Route:ORAL Entered and Authorized by: Vesta HICKS Method used: Electronically to [facility]* ([employer]) [address] [place] [address] Note to Pharmacy: Route: ORAL; RxID: [id number] LEVOTHYROXINE SODIUM 200 MCG ORAL TABLET (LEVOTHYROXINE SODIUM) One tablet by mouth every day #30[Tablet] x 0 Route:ORAL Entered by: Halle Castaneda MA Authorized by: Joy SHAIKH Method used: Electronically to [facility]* (retail) [address] [place] [address] RxID: [id number] HYDROXYZINE HCL 25 MG ORAL TABLET (HYDROXYZINE HCL) take one tablet by mouth three times daily as needed for increased anxiety. #60[Tablet] x 1 Route:ORAL Entered by: Halle Castaneda MA Authorized by: Joy SHAIKH [facility] (retail) [address] [place] [address] Fax: RxID: [id number] signed by Vesta HICKS on 10/11/2019 at 1:04 PM Name Value Range Interpretation Code Description Data Lissette rce(s) Supporting Document(s) Procedure Social History Code Duration Value Status Description Data Source(s ) Smoking 11/12/2020 12:00:00 AM EST Never Smoker completed Never S moker [facility] Smoking 08/30/2020 12:00:00 AM EDT Never Smoker completed Never S moker eCW1 ([facility]) Vital Signs ID Date Data Source UNK Name Value Range Interpretation Code Description Data Source(s) Body weight 2818 [oz_av] 2818 [oz_av] FREDRICK ([facility]) Systolic blood pressure 149 mm[Hg] 149 mm[Hg] A THENA ([facility]) Body mass index (BMI) [Ratio] 31.2 kg/m2 31.2 k g/m2 FREDRICK ([facility]) Body height 63 [in_i] 63 [in_i] FREDRICK ([facility]) Diastolic blood pressure 108 mm[Hg] 108 mm[Hg] FRED[facility]ICK ([facility]) Body weight 2808 [oz_av] 2808 [oz_av] FR[facility]ICK ([facility]) Systolic blood pressure 154 mm[Hg] 154 mm[Hg] A THENA ([facility]) Body mass index (BMI) [Ratio] 31.1 kg/m2 31.1 k g/m2 [facility]ICK ([facility]) Body height 63 [in_i] 63 [in_i] FREDRICK ([facility]) Diastolic blood pressure 113 mm[Hg] 113 mm[Hg] FR[facility]ICK ([facility]) Body weight 2808 [oz_av] 2808 [oz_av] [facility]ICK ([facility]) Systolic blood pressure 154 mm[Hg] 154 mm[Hg] A THENA ([facility]) Body mass index (BMI) [Ratio] 31.1 kg/m2 31.1 k g/m2 FREDRICK ([facility]) Body height 63 [in_i] 63 [in_i] FREDRICK ([facility]) Diastolic blood pressure 113 mm[Hg] 113 mm[Hg] [facility]ICK ([facility]) Diastolic blood pressure 92 mm[Hg] 92 mm[Hg] eCW[facility]) Systolic blood pressure 154 mm[Hg] 154 mm[Hg] e CW1 ([facility]) Body mass index (BMI) [Ratio] 31.17 kg/m2 31.17 kg/m2 [facility] ([facility]) Body height 63 [in_i] 63 [in_i] eCW1 ([facility]) Body weight 176 [lb_av] 176 [lb_av] eCW1 ([facility]) Body weight 2880.96 [oz_av] 2880.96 [oz_av] ATH KAYLEE ([facility]) Systolic blood pressure 152 mm[Hg] 152 mm[Hg] A [facility] ([facility]) Body height 63 [in_i] 63 [in_i] FREDRICK ([facility]) Diastolic blood pressure 105 mm[Hg] 105 mm[Hg] [facility]ICK ([facility]) Body weight 2880.96 [oz_av] 2880.96 [oz_av] ATH KAYLEE ([facility]) Systolic blood pressure 152 mm[Hg] 152 mm[Hg] [facility] Body height 63 [in_i] 63 [in_i] FRED[facility]ICK ([facility]) Diastolic blood pressure 105 mm[Hg] 105 mm[Hg] [facility]ICK ([facility]) Body weight 2912 [oz_av] 2912 [oz_av] [facility] ([facility]) Systolic blood pressure 156 mm[Hg] 156 mm[Hg] A [facility] ([facility]) Body height 63 [in_i] 63 [in_i] FR[facility]ICK ([facility]) Diastolic blood pressure 105 mm[Hg] 105 mm[Hg] [facility] ([facility]) Body weight 2912 [oz_av] 2912 [oz_av] [facility] ([facility]) Systolic blood pressure 156 mm[Hg] 156 mm[Hg] A [facility] ([facility]) Body height 63 [in_i] 63 [in_i] [facility] ([facility]) Diastolic blood pressure 105 mm[Hg] 105 mm[Hg] [facility] ([facility]) Patient Treatment Plan of Care Planned Activity Planned Date Details Description Data Source (s) Sertraline 100 MG Oral Tablet [facility] ([facility]) Prednisone 20 MG Oral Tablet [facility] ([facility]) Prednisone 10 MG Oral Tablet [facility] ([facility]) NITROFURANTOIN, MACROCRYSTALS 25 MG / Ni trofurantoin, Monohydrate 75 MG Oral Capsule FR[facility]ICK ([facility]) Ibuprofen 800 MG Oral Tablet [facility] ([facility]) Acetaminophen 325 MG / Hydrocodone Bitartrate 5 MG Oral Tablet [facility] ([facility]) Fluconazole 150 MG Oral Tablet [facility] ([facility]) epinephrine 0.3 mg/0.3 mL injection, auto-injector FR[facility]ICK ([facility]) doxycycline hyclate 100 MG Oral Capsule [facility] ([facility]) Clindamycin 300 MG Oral Capsule [facility] ([facility]) Ciprofloxacin 500 MG Oral Tablet [facility] ([facility]) buspirone hydrochloride 5 MG Oral Tablet [facility] ([facility]) Sertraline 100 MG Oral Tablet [facility] ([facility]) Prednisone 10 MG Oral Tablet [facility] ([facility]) NITROFURANTOIN, MACROCRYSTALS 25 MG / Ni trofurantoin, Monohydrate 75 MG Oral Capsule [facility] ([facility]) Ibuprofen 800 MG Oral Tablet [facility] ([facility]) Acetaminophen 325 MG / Hydrocodone Bitartrate 5 MG Oral Tablet [facility] ([facility]) Fluconazole 150 MG Oral Tablet [facility] ([facility]) Levothyroxine Sodium 0.2 MG Oral Tablet [Euthyrox] [facility] ([facility]) epinephrine 0.3 mg/0.3 mL injection, auto-injector [facility] ([facility]) doxycycline hyclate 100 MG Oral Capsule [facility] ([facility]) Clindamycin 300 MG Oral Capsule [facility] ([facility]) Ciprofloxacin 500 MG Oral Tablet [facility] ([facility]) buspirone hydrochloride 5 MG Oral Tablet [facility] ([facility])
[2020-12-03] MEDS ORDERED: CITA10TA5 (09:51)
--- OUTSIDE RECORDS SUMMARY | 2020-12-03 10:12 | CCD ---
Author Author [facility] Organization [facility] Address Unknown Phone Unavailable Support Name Relationship Address Phone SMC* Next Of Kin [address] [place] [address] [employer] Next Of Kin [address] [place] [address] Monty Taylor Next Of Kin Unknown Unavailable Joy Loredo Next Of Kin [address] [place] [address] UE Next Of Kin Unknown Unavailable ASHWINI CHILDRESS Next Of Kin [address] [place] [address] MONTY AMADOR Next Of Kin [address] [place] [address] Jaylan Dias MD Next Of Kin [address] [place] [address] [employer] Next Of Kin [address] [place] [address] [employer] [place] Next Of Kin [address] [place] [address] Maggie Pedraza DMD Next Of Kin [address] [place] [address] [employer] [place] [address] DEVI CHILDRESS Next Of Kin [address] [place] [address] [place] Next Of Kin [address] [place] [address] MONTY TAYLOR Next Of Kin [address] [place] [address] PENDING SALE TO [facility] [place] [address] Unavailable MONTY BUTLER Next Of Kin [address] [place] [address] GIL CASTANON Next Of Kin [address] [place] [address] MONTY TAYLOR ECON [address] [facility] [place] [address] Unavailable Care Team Providers 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 Name Role Phone Desmond, A Joy PHY THERAPIST Unavailable Unavailable Desmond, A Joy PHY THERAPIST Unavailable Unavailable Desmond, A Joy PHY THERAPIST Unavailable Unavailable Desmond, A Joy PHY THERAPIST Unavailable Unavailable Desmond, A Joy PHY THERAPIST Unavailable Unavailable Desmond, A Joy PHY THERAPIST Unavailable Unavailable Desmond, A Joy PHY THERAPIST Unavailable Unavailable Desmond, A Joy PHY THERAPIST Unavailable Unavailable Desmond, A Joy PHY THERAPIST Unavailable Unavailable Desmond, A Joy PHY THERAPIST Unavailable Unavailable Desmond, A Joy PHY THERAPIST Unavailable Unavailable Desmond, A Joy PHY THERAPIST Unavailable Unavailable Desmond, A Joy PHY THERAPIST Unavailable Unavailable Desmond, A Joy PHY THERAPIST Unavailable Unavailable Desmond, A Joy PHY THERAPIST Unavailable Unavailable Desmond, A Joy PHY THERAPIST Unavailable Unavailable Desmond, A Joy PHY THERAPIST Unavailable Unavailable Desmond, A Joy PHY THERAPIST Unavailable Unavailable Desmond, A Joy PHY THERAPIST Unavailable Unavailable Desmond, A Joy PHY THERAPIST Unavailable Unavailable Desmond, A Joy PHY THERAPIST Unavailable Unavailable Desmond, A Joy PHY THERAPIST Unavailable Unavailable Desmond, A Joy PHY THERAPIST Unavailable Unavailable Desmond, A Joy PHY THERAPIST Unavailable Unavailable Desmond, A Joy PHY THERAPIST Unavailable Unavailable Desmond, A Joy PHY THERAPIST Unavailable Unavailable Desmond, A Joy PHY THERAPIST Unavailable Unavailable Scordo, M Tanika PA Unavailable [...] M Tanika PA Unavailable Unavailable Joy Logan PHY THERAPIST PHY THERAPIST Unavailable Unavailable Re-disclosure Warning The records that [...] is protected by Article 27-F of the [facility] Public Health law. If you continue you may have access to information: Regarding HIV / AIDS; Provided by facilities licensed or operated by the [facility] Office of Mental Health; or Provided by the [facility] Office for People With Developmental Disabilities. If such information is present, then the following [facility] mandated warning applies: This information has been [...] law may result in a fine or prison sentence or both. A general authorization for the release of medical or other information is NOT sufficient authorization for further disc losure. Family History Family Member Name Family Member Gender Family Member Status Date o f Status Description Data Source(s) Unknown Unknown Problem [facility] ([facility]) Encounters Encounter Providers Location Date Indications Data Source(s ) Tanika Wilson PA-C: [address] [place] [address], Ph. Attender: Tanika BOSCH [facility] Medical 11/23/2020 12:00:00 AM EST [facility] ([facility]) Unknown [address] [facility] [address] 11/12/2020 12:00:00 AM EST eCW1 ([facility]) Outpatient Attender: NEEL CHRISTIANSEN 09/27/2020 11:22:01 A M EST [facility] Tanika Wilson PA-C: [address] [place] [address], Ph. Attender: Tanika BOSCH [facility] Medical 09/27/2020 12:00:00 AM EST FR[facility]ICK ([facility]) Tanika Wilson PA-C: [address] [place] [address], Ph. Attender: Tanika BOSCH [facility] Medical 09/27/2020 12:00:00 AM EST [facility] ([facility]) Outpatient [address] [facility] [address] 08/30/2020 12:00:00 AM EDT eCW1 ([facility]) Outpatient Attender: Joy SHAIKH FP 08/16/2020 08:2 7:03 AM EDT [facility] Outpatient Attender: NEEL HEARTP FP 08/16/2020 08:27:02 A M EDT [facility] Outpatient Attender: Joy Desmond HEARTP FP 08/07/2020 09:0 1:00 AM EDT [facility] Outpatient Attender: NEEL HEARTP FP 08/07/2020 09:00:59 A M EDT [facility] Outpatient Attender: NEEL HEARTP FP 07/26/2020 02:54:12 P M EDT [facility] Outpatient Attender: NEEL HEARTP FP 06/14/2020 10:30:01 A M EDT [facility] Outpatient Attender: Joy HEARTP FP 06/13/2020 10:1 7:01 AM EDT [facility] Outpatient Attender: Joy HEARTP FP 05/24/2020 03:0 3:00 PM EDT [facility] Outpatient Attender: Joy HEARTP FP 05/17/2020 08:4 7:00 AM EDT [facility] Outpatient Attender: NEEL HERATP FP 04/14/2020 12:09:14 A M EDT [facility] Outpatient Attender: NEEL SHAIKH FP 04/12/2020 08:44:00 A M EDT [facility] Outpatient Attender: NEEL HEARTP FP 02/29/2020 10:30:03 A M EDT [facility] Outpatient Attender: Joy HEARTP FP 02/29/2020 10:3 0:03 AM EDT [facility] Outpatient Attender: NEEL HEARTP FP 02/22/2020 09:01:02 P M EDT [facility] Outpatient Attender: NEEL HEARTP FP 02/22/2020 12:52:00 P M EDT [facility] Outpatient Attender: NEEL HEARTP FP 02/22/2020 12:49:00 P M EDT [facility] Outpatient Attender: NEEL HEARTP FP 02/22/2020 12:48:02 P M EDT [facility] Outpatient Attender: NEEL HEARTP FP 02/22/2020 12:28:01 P M EDT [facility] Outpatient Attender: NEEL Desmond [facility] 02/22/2020 12:27:00 P M EDT [facility]/22[facility]2020 11:19:00 A M EDT [facility] 02/12/2020 05:5 0:59 PM EDT [facility] Outpatient Attender: NEEL Logan [facility] 01/27/2020 08:01:07 P M EDT [facility] Outpatient Attender: NEEL Logan [facility] 11/30/2019 01:00:02 P M [facility] Outpatient Attender: NEEL Logan [facility] 11/01/2019 09:01:01 P M [facility] Outpatient Attender: Joy Logan [facility] 10/17/2019 02:1 0:02 PM [facility] Outpatient Attender: Joy Logan [facility] 10/17/2019 10:0 7:03 AM [facility] Outpatient Attender: NEEL Logan [facility] 10/17/2019 10:07:03 A M [facility] Outpatient Attender: Joy Logan [facility] 10/12/2019 03:0 6:02 PM [facility] Outpatient Attender: NEEL Logan [facility] 10/12/2019 02:18:01 P M [facility] Outpatient Attender: Joy Logan [facility] 10/12/2019 10:5 4:59 AM [facility] Outpatient Attender: Joy Logan [facility] 10/11/2019 01:0 5:00 PM [facility] Outpatient Attender: NEEL Logan [facility] 10/06/2019 10:33:01 A M [facility] Medications Medication Brand Name Start Date Product Form Dose Route Admi nistrative Instructions Pharmacy Instructions Status Indications Reaction Description Data Source(s) Hydrochlorothiazide 25 MG / Lisinopril 2 0 MG Oral Tablet Lisinopril- Hydrochlorothiazide 20-25 MG Lisinopril-Hydrochlorothiazide 20-25 MG 08/30/2020 12:00:00 AM EDT 1.0 {tablet} active Lisinopril-Hydrochlorothiazide 20-25 MG eCW1 ([facility]) Hydrochlorothiazide 25 MG / Lisinopril 2 0 MG Oral Tablet Lisinopril- Hydrochlorothiazide 20-25 MG Lisinopril-Hydrochlorothiazide 20-25 MG 08/30/2020 12:00:00 AM EDT 1.0 {tablet} active Lisinopril-Hydrochlorothiazide 20-25 MG eCW1 ([facility]) buspirone hydrochloride 5 MG Oral Tablet buspirone 5 m g tablet buspirone 5 mg tablet completed buspirone hydro chloride 5 MG Oral Tablet [place] ([facility]) epinephrine 0.3 mg/0.3 mL injection, auto-injector [id number] completed [id number] 0.3 ML epinephrine 1 MG/ML Aut o-Injector [place] ([facility]) Clindamycin 300 MG Oral Capsule clindamycin HCl 300 mg capsule clindamycin HCl 300 mg capsule completed clindam ycin 300 MG Oral Capsule [place] ([facility]) NITROFURANTOIN, MACROCRYSTALS 25 MG / Ni trofurantoin, Monohydrate 75 MG Oral Capsule nitrofurantoin monohydrate/macrocrystals 100 mg capsule nitrofurantoin monohydrate/macrocrystals 100 mg capsule completed nitrofurantoin, macrocrystals 25 MG / nitrofurantoin, monohydrate 75 MG Oral Capsule [place] ([facility]) Ibuprofen 800 MG Oral Tablet ibuprofen 800 mg tablet ibuprofen 8 00 mg tablet completed ibuprofen 800 MG Oral Tablet [place] ([facility]) Acetaminophen 325 MG / Hydrocodone Elizabeth trate 5 MG Oral Tablet hydrocodone 5 mg- acetaminophen 325 mg tablet hydrocodone 5 mg-acetaminophen 325 mg tablet completed acetaminophen 325 MG / hydrocodone bitartrate 5 MG Oral Tablet [facility] ([facility]) Fluconazole 150 MG Oral Tablet fluconazo le 150 mg tablet TAKE 1 TABLET BY MOUTH NEEDED FOR YEAST INFECTION fluconazole 150 mg tablet TAKE 1 TABLET BY MOUTH NEEDED FOR YEAST INFECTION complete d fluconazole 150 MG Oral Tablet [place] ([facility]) Sertraline 100 MG Oral Tablet sertraline 100 mg tablet sertr mike 100 mg tablet completed sertraline 100 MG Oral Tablet [place] ([facility]) Sertraline 100 MG Oral Tablet sertraline 100 mg tablet sertr mike 100 mg tablet completed sertraline 100 MG Oral Tablet [place] ([facility]) Ciprofloxacin 500 MG Oral Tablet ciprofl oxacin 500 mg tablet TAKE 1 TABLET BY MOUTH TWICE DAILY ciprofloxacin 500 mg tablet TAKE 1 TABLE T BY MOUTH TWICE DAILY completed ciprofloxacin 50 0 MG Oral Tablet [place] ([facility]) Clindamycin 300 MG Oral Capsule clindamycin HCl 300 mg capsule clindamycin HCl 300 mg capsule completed clindam ycin 300 MG Oral Capsule [place] ([facility]) Ciprofloxacin 500 MG Oral Tablet ciprofl oxacin 500 mg tablet TAKE 1 TABLET BY MOUTH TWICE DAILY ciprofloxacin 500 mg tablet TAKE 1 TABLE T BY MOUTH TWICE DAILY completed ciprofloxacin 50 0 MG Oral Tablet [place] ([facility]) NITROFURANTOIN, MACROCRYSTALS 25 MG / Ni trofurantoin, Monohydrate 75 MG Oral Capsule nitrofurantoin monohydrate/macrocrystals 100 mg capsule nitrofurantoin monohydrate/macrocrystals 100 mg capsule completed nitrofurantoin, macrocrystals 25 MG / nitrofurantoin, monohydrate 75 MG Oral Capsule [place] ([facility]) Prednisone 20 MG Oral Tablet prednisone 20 mg tablet Take 2 tablets every day by oral route in the morning for 5 days. prednisone 20 mg tablet Take 2 tablets every day by oral route in the morning for 5 days. 2 completed prednisone 20 MG Oral Tablet [place] ([facility]) Fluconazole 150 MG Oral Tablet fluconazo le 150 mg tablet TAKE 1 TABLET BY MOUTH NEEDED FOR YEAST INFECTION fluconazole 150 mg tablet TAKE 1 TABLET BY MOUTH NEEDED FOR YEAST INFECTION complete d fluconazole 150 MG Oral Tablet [place] ([facility]) Acetaminophen 325 MG / Hydrocodone Elizabeth trate 5 MG Oral Tablet hydrocodone 5 mg- acetaminophen 325 mg tablet hydrocodone 5 mg-acetaminophen 325 mg tablet completed acetaminophen 325 MG / hydrocodone bitartrate 5 MG Oral Tablet [place] ([facility]) buspirone hydrochloride 5 MG Oral Tablet buspirone 5 m g tablet buspirone 5 mg tablet completed buspirone hydro chloride 5 MG Oral Tablet [place] ([facility]) doxycycline hyclate 100 MG Oral Capsule doxycycline hyclate 100 mg capsule TAKE 1 CAPSULE BY MOUTH TWICE DAILY doxycycline hyclate 100 mg capsule TAKE 1 CAPSULE BY MOUTH TWICE DAILY completed doxycycline hyclate 100 MG Oral Capsule [facility]ICK ([facility]) Prednisone 10 MG Oral Tablet prednisone [...] completed prednisone 10 MG Oral Tablet [facility]ICK ([facility]) doxycycline hyclate 100 MG Oral Capsule doxycycline hyclate 100 mg capsule TAKE 1 CAPSULE BY MOUTH TWICE DAILY doxycycline hyclate 100 mg capsule TAKE 1 CAPSULE BY MOUTH TWICE DAILY completed doxycycline hyclate 100 MG Oral Capsule [facility]ICK ([facility]) Prednisone 10 MG Oral Tablet prednisone [...] completed prednisone 10 MG Oral Tablet [facility] ([facility]) Levothyroxine Sodium 0.2 MG Oral Tablet [Euthyrox] Euthyrox 200 mcg tablet TAKE 1 TABLET BY MOUTH ONCE DAILY IN THE MORNING ON AN EMPTY STOMACH TAKE WITH 50 MCG TABLET Euthyrox 200 mcg tablet TAKE 1 TABLET BY MOUTH ONCE DAILY IN THE MORNING ON AN EMPTY STOMACH TAKE WITH 50 MCG TABLET completed levothyroxine sodium 0.2 MG Oral Tablet [Euthyrox] FR[facility]ICK ([facility]) Ibuprofen 800 MG Oral Tablet ibuprofen 800 mg tablet ibuprofen 8 00 mg tablet completed ibuprofen 800 MG Oral Tablet [facility] ([facility]) epinephrine 0.3 mg/0.3 mL injection, auto-injector [id number] completed [id number] 0.3 ML epinephrine 1 MG/ML Aut o-Injector [facility] ([facility]) Insurance Providers Payer name Policy type / Coverage type Policy ID Covered libertarian ID Covered libertarian's relationship to gustafson Policy [place] Plan Information BCBS OF [place] 306/806 [id number] [facility] [id number] [place] P[place] 302/307 [id number] SP [id number] SELF PAY ONLY [id number] SP [id number] [employer] P [id number] S [id number] [employer] BC[employer] P [id number] S UCR [id number] [employer] BCBS B [id number] S YNC [id number] [employer] BCBS P [id number] S [id number] [facility] [place] UNAVAILABLE SP UNAVAILABLE BCBS/Blue Card Commercial [id number] Family Dependent [id number] [employer] BCYO P [id number] S [id number] BCBS/Blue Card Commercial [id number] Family Dependent [id number] Self Pay P [id number] S [id number] [place] [id number] [facility] [id number] [place] PPO 302/307 [id number] SP [id number] SELF PAY ONLY [id number] [place] PPO 302/307 [id number] SP [id number] [place] [id number] Self [id number] Sliding Fee Scale P UNAVAILABLE S UNAVAILABLE [employer] BCYO P [id number] S [place] [id number] Self [id number] [employer] BCYO P [id number] S [id number] ANSI-Commercial [id number] ANSI-Not a Secondary Insurance [id number] ANSI-Not a Secondary Insurance [id number] [employer] BCYO P [id number] S [id number] ANSI-Not a Secondary Insurance [id number] ANSI-Not a Secondary Insurance [id number] ANSI-Commercial [id number] [facility] P [id number] O [id number] 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 COMP [id number] SP [id number] SELF PAY ONLY - [id number] [employer] 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 COMP SP [facility] [id number] [facility] P [id number] O [id number] [facility] Dental Prog P [id number] S [id number] [place] INS WORKER COMP [id number] SP [id number] [place] [id number] SP [id number] Prime Commercial Family Dependent U [id number] Spouse [id number] D [facility] P [id number] S [id number] [facility] O [id number] U [id number] Problems, Conditions, and Diagnoses Code Display Name Description Problem Type Effective Dates Data Source(s) N93.9 Abnormal uterine bleeding Abnormal uterine bleeding (A UB) Problem 08/30/2020 12:00:00 AM EDT eCW1 ([facility]) [id number] Acute cystitis without hematuria Acute cystitis withou t hematuria 07/26/2020 02:42:57 PM EDT [facility] 788.1 Dysuria Dysuria 07/26/2020 02:42:57 PM ED T [facility] [id number] Urinary tract infection, site not specif ied Urinary tract infection, site not specified 02/22/2020 12:46:56 PM EDT [facility] [id number] Urinary tract infectious disease Urinary Tract I nfectious Disease Problem 02/22/2020 12:00:00 AM EDT - 09/27/2020 12:00:00 AM LARA ALCALA ([facility]) [id number] Urinary tract infectious disease Urinary Tract I nfectious Disease Problem 02/22/2020 12:00:00 AM EDT - 09/27/2020 12:00:00 AM LARA ALCALA ([facility]) [id number] Clinical finding Clinical Finding Problem 019 12:00:00 AM EDT - 09/27/2020 12:00:00 AM ELVA ALCALA ([facility]) [id number] Clinical finding Clinical Finding Problem 019 12:00:00 AM EDT - 09/27/2020 12:00:00 AM ELVA ALCALA ([facility]) [id number] Influenza vaccine needed Influenza Vaccine Needed Pro blem 12/06/2018 12:00:00 AM EST - 09/27/2020 12:00:00 AM ELVA ALCALA ([facility]) [id number] Influenza vaccine needed Influenza Vaccine Needed Pro blem 12/06/2018 12:00:00 AM EST - 09/27/2020 12:00:00 AM ELVA ALCALA ([facility]) [id number] Under immunized Under Immunized Problem 9 12:00:00 AM EST - 09/27/2020 12:00:00 AM ELVA ALCALA ([facility]) [id number] Under immunized Under Immunized Problem 9 12:00:00 AM EST - 09/27/2020 12:00:00 AM ELVA ALCALA ([facility]) [id number] Traumatic injury by site Traumatic Injury by Site Prob gail 09/07/2018 12:00:00 AM EDT - 09/27/2020 12:00:00 AM ELVA ALCALA ([facility]) [id number] Traumatic injury by site Traumatic Injury by Site Prob gail 09/07/2018 12:00:00 AM EDT - 09/27/2020 12:00:00 AM ELVA ALCALA ([facility]) Results ID Date Data Source [id number] 11/01/2020 03:09:00 PM EST FR[facility]ICK ([facility]) Name Value Range Interpretation Code Description Data Lissette rce(s) Supporting Document(s) thyroid stimulating hormone 5.160 uIU/mL 0.358-3.740 Above high no rmal Thyroid Stimulating Hormone [facility] ([facility]) free T4 1.13 NG/dL 0.76-1.46 normal Free T4 [place] ([facility]) ID Date Data Source [id number] 11/01/2020 03:09:00 PM EST FR[facility]ICK ([facility]) Name Value Range Interpretation Code Description Data Lissette rce(s) Supporting Document(s) triglycerides level 606 mg/dL <150 Above high normal Triglycer ides Level [place] ([facility]) HDL cholesterol 31 mg/dL >40 Below low normal HDL Cholestero l [place] ([facility]) cholesterol level 202 mg/dL <200 Above high normal Cholesterol Level [place] ([facility]) non-HDL-C 171 mg/dL normal Non-hdl-c [place] ([facility]) cholesterol risk ratio <5 Above high normal Choles terol Risk Ratio [facility]) ID Date Data Source [id number] 11/01/2020 03:09:00 PM EST [facility]ICK ([facility]) Name Value Range Interpretation Code Description Data Lissette rce(s) Supporting Document(s) glucose, fasting 102 mg/dL 70-100 Above high normal Glucose, Fas ting [facility] ([facility]) blood urea nitrogen 10 mg/dL 7-18 normal Blood Urea Nitro gen [facility] ([facility]) creatinine for GFR 0.87 mg/dL 0.55-1.30 normal Creatinine for GF R [place] ([facility]) glomerular filtration rate > 60.0 >60 normal Glomerula r Filtration Rate [facility] ([facility]) chloride level 105 mEq/L 98-107 normal Chloride Level [place] ([facility]) sodium level 138 mEq/L 136-145 normal Sodium Level [facility] ([facility]) potassium serum 3.9 mEq/L 3.5-5.1 normal Potassium Serum ATHE ([facility]) anion gap 7 mEq/L 8-16 Below low normal Anion Gap [facility] ( [facility]) carbon dioxide level 26 mEq/L 21-32 normal Carbon Dioxide Level [facility] ([facility]) calcium level 9.7 mg/dL 8.5-10.1 normal Calcium Level [facility] ( [facility]) ALT/SGPT 44 U/L 12-78 normal ALT/SGPT [facility] ([facility]) alkaline phosphatase 77 U/L 45-117 normal Alkaline Phosph atase [facility] ([facility]) AST/SGOT 22 U/L 7-37 normal AST/SGOT [place] ([facility]) total protein 7.3 gm/dL 6.4-8.2 normal Total Protein [facility] ( [facility]) bilirubin,total 0.4 mg/dL 0.2-1.0 normal Bilirubin,total ATHE ([facility]) albumin/globulin ratio 1.2-2.2 normal Albumin/globu luciano Ratio [facility] ([facility]) albumin 4.2 gm/dL 3.2-5.2 normal Albumin [facility] ([facility]) ID Date Data Source [id number] 11/01/2020 03:09:00 PM EST [facility] ([facility]) Name Value Range Interpretation Code Description Data Lissette rce(s) Supporting Document(s) white blood count 9.3 10 4.0-10.0 normal White Blood Count [facility] ([facility]) hematocrit 41.9 % 36.0-47.0 normal Hematocrit [facility] ([facility]) hemoglobin 14.6 g/dL 12.0-15.5 normal Hemoglobin [facility] ([facility]) red blood count 4.61 10 4.00-5.40 normal Red Blood Count AT[facility] ([facility]) mean corpuscular hemoglobin 31.7 pg 27.0-33.0 normal Mean Corpuscular Hemoglobin [facility] ([facility]) mean corpuscular HGB conc 34.8 g/dL 32.0-36.5 normal Mean Corpu scular HGB Conc [facility] ([facility]) red cell distribution width 11.9 % 11.5-14.5 normal Red Cell Distribution Width [facility] ([facility]) mean corpuscular volume 90.9 fL 80.0-96.0 normal Mean Corpusc ular Volume [facility] ([facility]) mono % 7.0 % 0.0-5.0 Above high normal Reynolds % [facility] ([facility]) neutrophils % 66.9 % 36.0-66.0 Above high normal Neutrophils % A THENA ([facility]) platelet count, automated 242 10 150-450 normal Platelet C ount, Automated [place] ([facility]) lymph % 24.2 % 24.0-44.0 normal Lymph % [place] ([facility]) eos % 1.0 % 0.0-3.0 normal Eos % [place] ([facility]) nucleated red blood cell % 0.0 % 0-0 normal Nucleated Red Blood Cell % [facility] ([facility]) baso % 0.4 % 0.0-1.0 normal Baso % [place] ([facility]) immature granulocyte % 0.5 % 0-3.0 normal Immature Gran ulocyte % [place] [facility] [place] lymph # 2.3 10 1.5-5.0 normal Lymph # FREDRICK ([facility]) neutrophils # 6.3 10 1.5-8.5 normal Neutrophils # FREDRICK ( [facility]) mono # 0.7 10 0.0-0.8 normal Reynolds # FREDRICK ([facility]) eos # 0.1 10 0.0-0.5 normal Eos # FREDRICK ([facility]) baso # 0.0 10 0.0-0.2 normal Baso # FREDRICK ([facility]) ID Date Data Source [id number] 10/08/2020 12:00:00 AM EST [facility] Name Value Range Interpretation Code Description Data Lissette rce(s) Supporting Document(s) 2019-nCoV RNA XXX HERNÁN+probe-Imp [facility] This lab was ordered by [facility] and reported by [employer]. ID Date Data Source PAP REQUEST FOR SERVICE 08/30/2020 12:00:00 AM EDT eCW1 ([facility]) Name Value Range Interpretation Code Description Data Lissette rce(s) Supporting Document(s) PAP REQUEST FOR SERVICE eCW1 ( [facility]) ID Date Data Source [id number] 07/26/2020 02:20:00 PM EDT [facility] Name Value Range Interpretation Code Description Data Lissette rce(s) Supporting Document(s) URINECULTRTN NO GROWTH N [facility] ID Date Data Source [id number] 07/26/2020 02:14:02 PM EDT [facility] Measurements & CalculationsHeight: 63 inches (5 ft. [...] pH: 8.0 5.0-6.5 Blood: negative Negative Specific [place]: 1.010 1.020>=1.030 Ketone: negative Negative Bilirubin: negative Negative Glucose: negative NegativeLianne Palmer LPN, July 26, 2020 2:44 PMInitial [...] Headache, High BP. Pt was sent to [facility] ER for elevated BPHave you seen [facility]? NoHave you seen a dentist? No [...] during this visit, including review of any hcum-wdc-vnzgfic medications, herbal therapies, and/or supplements.Allergy ReviewAllergy List [...] is? GoodAssessment & Plan Problems:Added: Dysuria (ICD-788.1) (UNM30-Q53.0) Assessment: Instructions: Urine sent for culture.Acute cystitis [...] high today.Removed:Urinary tract infection, site not specified (FKN36-F51.0), Unspecified injury of left wrist, hand and finger(s), initial encounter (ICD-959.3) (ACM87-P98.92xA)Patient Instructions/Care Plan: Dysuria: Urine sent for culture.Acute [...] (Critical)BACTRIM (Critical)VANCOMYCIN (Critical)* BEE STINGS (Critical)Orders:Urinalysis- automated [CPT-95805] Urine Culture & Sensitivity [CPT-68684] Adult - Ofc Vst, EST, Level III [CPT-67976] Follow-Up Return to clinic: as needed Clinical Visit Summary DeclinedMedications:DIFLUCAN 150 MG ORAL TABLET (FLUCONAZOLE) Take 1 tablet po once as needed for yeast infection #1[Tablet] x 0 Route:ORAL Entered and Authorized by: Shorty BOSCH Method used: Electronically to [facility]* (retail) [address] [place] [address] Note to Pharmacy: Route: ORAL; Indications: ACUTE CYSTITIS WITHOUT HEMATURIA;DYSURIA RxID: [id number] 100 MG ORAL CAPSULE (NITROFURANTOIN MONOHYD MACRO) Take 1 capsule po BID #10[Capsule] x 0 Route:ORAL Entered and Authorized by: Shorty BOSCH Method used: Electronically to [facility]* (retail) [address] [place] [address] Note to Pharmacy: Route: ORAL; Indications: ACUTE CYSTITIS WITHOUT HEMATURIA;DYSURIA RxID: [id number] ZOLOFT 100 MG ORAL TABLET (SERTRALINE HCL) take one yablet by mouth daily #30[Tablet] x 2 Route:ORAL Entered by: Lianne Palmer LPN Authorized by: Joy SHAIKH [facility] (retail) [facility] [address] [place] [address] RxID: [id number] BUSPIRONE HCL 5 MG ORAL TABLET (BUSPIRONE HCL) 1 tab by mouth twice per day as needed for anxiety #60[Tablet] x 0 Route:ORAL Entered by: Lianne Palmer LPN Authorized by: Vesta HICKS Method [facility] (retail) [facility] [address] [place] [address] RxID: [id number] FLUCONAZOLE 150 MG ORAL TABLET (FLUCONAZOLE) 1 tab by mouth now and repeat in 3 days if symptoms persist #2[Tablet] x 0 Route:ORAL Entered by: Lianne Palmer LPN Authorized by: Vesta HICKS Method used: Electronically to [facility]* (retail) [address] [place] [address] RxID: [id number] signed by Shorty BOCSH on 08/16/2020 at 8:26 AM Name Value Range Interpretation Code Description Data Lissette rce(s) Supporting Document(s) ID Date Data Source [id number] 07/26/2020 02:14:02 PM EDT [facility] Name Value Range Interpretation Code Description Data Lissette rce(s) Supporting Document(s) APPEARANCE U clear [facility] BILIRUBIN UR negative [facility] BLOOD UR DIP negative [facility] GLUCOSE, URN negative [facility] KETONES URN negative [facility] NITRITE URN negative [facility] PH URINE 8.0 [facility] PROTEIN, URN 0.15 [facility] SPEC GR URIN 1.010 [facility] UA COLOR straw [facility] UROBILINOGEN 3.5 [facility] WBC DIPSTK U [facility] ID Date Data Source [id number] 02/22/2020 12:48:00 PM EDT [facility] Name Value Range Interpretation Code Description Data Lissette rce(s) Supporting Document(s) URINECULTRTN NO GROWTH N [facility] ID Date Data Source [id number] 02/22/2020 12:26:31 PM EDT [facility] Measurements & CalculationsHeight: 63 inches (5 ft. [...] Illness (HPI)Telemedicine visit with patient's location at [facility] and provider's location at offsite office. Additional [...] Problems:Added: Urinary tract infection, site not specified (VNI59-H55.0) Assessment: UA POC + will treat with [...] ElectronicAllergies:AMOXICILLIN (Critical)BACTRIM (Critical)VANCOMYCIN (Critical)* BEE STINGS (Critical)Orders:URINALYSIS [CPT-37254] Urine Culture [CPT-53178] Urine - Chlamydia [CPT-96672] Urine - Gonorrhea [CPT-41798] Office Visit - Established, Level 3 [CPT-71103JF] Follow-Up Return to clinic: if symptoms persist Clinical Visit Summary CompletedMedications:CIPRO 500 MG ORAL TABLET (CIPROFLOXACIN HCL) 1 tab by mouth twice per day #6[Tablet] x 0 Route:ORAL Entered and Authorized by: Vesta HICKS Method used: Electronically to [facility]* (retail) [address] [place] [address] Fax: Note to Pharmacy: Route: ORAL; RxID: [id number] In-House Urine TestsDate/Time Collected: February 22, 2020 12:36 PMTest Result Reference Range Normal ValueRoutine Urinalysis Color: orange Yellow Appearance: cloudy Clear Leukocytes: 1+ Negative Nitrite: positive Negative Urobilinogen: negative Negative Protein: 2+ Negative pH: 6.0 5.0-6.5 Blood: negative Negative Specific [place]: 1.000 1.020>=1.030 Ketone: negative Negative Bilirubin: 1+ Negative Glucose: negative NegativeDelia Hinds, February 22, 2020 12:37 PM Name Value Range Interpretation Code Description Data Lissette rce(s) Supporting Document(s) ID Date Data Source [id number] 10/12/2019 02:41:01 PM EST [facility] In-House Blood TestsDate/Time Colle cted: October 12, 2019 2:30 PMTest Result Reference Range Normal ValueComments: blood drawn in office. taken from right ac. tolerated well.Wilfredo Santiago MA, October 12, 2019 2:41 PMAssessment & Plan Orders:[id number] Vst-Est Level I [CPT-78537] 80032 - Venipuncture [CPT-24678] Name Value Range Interpretation Code Description Data Lissette rce(s) Supporting Document(s) ID Date Data Source [id number] 10/12/2019 02:30:00 PM EST [facility] Name Value Range Interpretation Code Description Data Lissette rce(s) Supporting Document(s) HCT 43.4 % 36.0-47.0 N [facility] HGB 15.5 g/dL 12.0-15.5 N [facility] MCH 35.7 G/DL pg 32.0-36.5 N [facility] MCHC 32.6 PG % 27.0-33.0 N [facility] PLATELETS 255 10 10*3/mm3 150-450 N [facility] RBC 4.75 10 10*6/mm3 4.00-5.40 N [facility] RDW 11.9 % 11.5-14.5 N [facility] WBC TOTAL 12.0 4.0-10.0 H [facility] ID Date Data Source [id number] 10/12/2019 02:30:00 PM [facility] Name Value Range Interpretation Code Description Data Lissette rce(s) Supporting Document(s) T4, FREE 0.76 ng/dL 0.76-1.46 N [facility] TSH 93.400 microintl units/mL 0.358-3.740 H No [facility] ID Date Data Source [id number] 10/10/2019 04:10:50 PM [facility] Measurements & CalculationsHeight: 63 inches (5 ft. [...] Headache, High BP. Pt was sent to [facility] ER for elevated BPHave you seen [...] Illness (HPI)Telemedicine visit with patient's location at [facility] and provider's location at offsite office. Additional [...] during this visit, including review of any dfrk-vvu-suqkxcj medications, herbal therapies, and/or supplements.Allergy ReviewAllergy List [...] is? GoodAssessment & Plan Problems:Assessed:Other specified hypothyroidism (TPF86-N61.8) Assessment: States she takes 250mcg daily, only [...] you want as well.Generalized anxiety disorder (ICD-300.02) (GIQ62-H55.1) Assessment: Instructions: I have entered a THERAPY referral f or you today. Our referrals department will contact you with further instructions on how to set up your appt for this referral. Please call our referrals dept if you don't hear about this referral within 2 weeks. [phone] ext [phone]. Your prescriptions have been sent to your preferred pharmacy electronically, please take them as prescribed and report any significant side effects.Generalized anxiety disorder (ICD-300.02) (UYW82-E99.1) Assessment: Referred for therapy. CPM with Sertraline 100mg and instructed pt that it really is a medicine that is most effective if taken daily. Add in Busprione for anxiety symptoms during the day PRN. RTC in 4 weeks for follow up with Joy.Other specified hypothyroidism (ANY20-K19.8) Assessment: Recheck TSH. Discussed importance of compliance with this med.Essential (primary) hypertension (TKN16-Y99) Assessment: Hasn't taken BP meds today and is not compliant. Discussed importance of taking this med daily. Discussed s/sx of prolonged HTN and risks for CVA and IN. Advised patient to go to the ER [...] hear about this referral within 2 weeks. [phone] ext [phone]. Your prescriptions have been sent to your [...] 0Allergies:AMOXICILLIN (Critical)BACTRIM (Critical)VANCOMYCIN (Critical)* BEE STINGS (Critical)Orders:TSH [CPT-90325] T-4 free [CPT-21420] CBC W/DIFF [CPT-62029] Mental Health Consult [CPT-55483] Office Visit - Established, Level 3 [CPT-78979JB] Follow-Up Return to clinic: 4 weeks for follow up with Joy Clinical Visit Summary CompletedM edications:ZESTORETIC 20-25 MG ORAL TABLET (LISINOPRIL-HYDROCHLOROTHIAZIDE) One tablet by mouth every day #30[Tablet] x 5 Route:ORAL Entered and Authorized by: Vesta HICKS Method used: Electronically to [facility]* ([facility]) [address] [place] [address] Note to Pharmacy: Route: ORAL; RxID: [id number] 100 MG ORAL TABLET (SERTRALINE HCL) take one yablet by mouth daily #30[Tablet] x 2 Route:ORAL Entered and Authorized by: Vesta HICKS Method used: Electronically to [facility]* ([facility]) [address] [place] [address] Note to Pharmacy: Route: ORAL; RxID: [id number] HCL 5 MG ORAL TABL ET (BUSPIRONE HCL) 1 tab by mouth twice per day as needed for anxiety #60[Tablet] x 0 Route:ORAL Entered and Authorized by: Vesta HICKS Method used: Electronically to [facility]* ([facility]) [address] [place], [place] [id number] Note to Pharmacy: Route: ORAL; RxID: [id number] LEVOTHYROXINE SODIUM 200 MCG ORAL TABLET (LEVOTHYROXINE SODIUM) One tablet by mouth every day #30[Tablet] x 0 Route:ORAL Entered by: Halle Castaneda MA Authorized by: Joy SHAIKH Method used: Electronically to [facility]* (retail) [address] [place] [address] RxID: [id number] HYDROXYZINE HCL 25 MG ORAL TABLET (HYDROXYZINE HCL) take one tablet by mouth three times daily as needed for increased anxiety. #60[Tablet] x 1 Route:ORAL Entered by: Halle Castaneda MA Authorized by: Joy SHAIKH Method used: Electronically to [facility]* (retail) [address] [place] [address] Fax: RxID: [id number] signed by Vesta HICKS on 10/11/2019 at 1:04 PM Name Value Range Interpretation Code Description Data Lissette rce(s) Supporting Document(s) Procedure Social History Code Duration Value Status Description Data Source(s ) Smoking 11/12/2020 12:00:00 AM EST Never Smoker completed Never S moker eCW1 ([facility]) Smoking 08/30/2020 12:00:00 AM EDT Never Smoker completed Never S moker eCW1 ([facility]) Vital Signs ID Date Data Source UNK Name Value Range Interpretation Code Description Data Source(s) Body weight 2818 [oz_av] 2818 [oz_av] FREDRICK ([facility]) Systolic blood pressure 149 mm[Hg] 149 mm[Hg] A THENA ([facility]) Body mass index (BMI) [Ratio] 31.2 kg/m2 31.2 k g/m2 [facility]ICK ([facility]) Body height 63 [in_i] 63 [in_i] [facility]ICK ([facility]) Diastolic blood pressure 108 mm[Hg] 108 mm[Hg] FR[facility]RICK ([facility]) Body weight 2808 [oz_av] 2808 [oz_av] FR[facility]ICK ([facility]) Systolic blood pressure 154 mm[Hg] 154 mm[Hg] A THENA ([facility]) Body mass index (BMI) [Ratio] 31.1 kg/m2 31.1 k g/m2 [facility]ICK ([facility]) Body height 63 [in_i] 63 [in_i] [facility]ICK ([facility]) Diastolic blood pressure 113 mm[Hg] 113 mm[Hg] FR[facility]ICK ([facility]) Body weight 2808 [oz_av] 2808 [oz_av] FR[facility]ICK ([facility]) Systolic blood pressure 154 mm[Hg] 154 mm[Hg] A THENA ([facility]) Body mass index (BMI) [Ratio] 31.1 kg/m2 31.1 k g/m2 FR[facility]ICK ([facility]) Body height 63 [in_i] 63 [in_i] FR[facility]ICK ([facility]) Diastolic blood pressure 113 mm[Hg] 113 mm[Hg] FR[facility]ICK ([facility]) Diastolic blood pressure 92 mm[Hg] 92 mm[Hg] eCW1 ([facility]) Systolic blood pressure 154 mm[Hg] 154 mm[Hg] e CW1 ([facility]) Body mass index (BMI) [Ratio] 31.17 kg/m2 31.17 kg/m2 [facility] ([facility]) Body height 63 [in_i] 63 [in_i] eCW1 ([facility]) Body weight 176 [lb_av] 176 [lb_av] eCW1 ([facility]) Body weight 2880.96 [oz_av] 2880.96 [oz_av] ATH KAYLEE ([facility]) Systolic blood pressure 152 mm[Hg] 152 mm[Hg] [facility] Body height 63 [in_i] 63 [in_i] FREDRICK ([facility]) Diastolic blood pressure 105 mm[Hg] 105 mm[Hg] FREDRICK ([facility]) Body weight 2880.96 [oz_av] 2880.96 [oz_av] ATH KAYLEE ([facility]) Systolic blood pressure 152 mm[Hg] 152 mm[Hg] [facility] Body height 63 [in_i] 63 [in_i] FREDRICK ([facility]) Diastolic blood pressure 105 mm[Hg] 105 mm[Hg] FREDRICK ([facility]) Body weight 2912 [oz_av] 2912 [oz_av] FREDRICK ([facility]) Systolic blood pressure 156 mm[Hg] 156 mm[Hg] A [facility] ([facility]) Body height 63 [in_i] 63 [in_i] FREDRICK ([facility]) Diastolic blood pressure 105 mm[Hg] 105 mm[Hg] FREDRICK ([facility]) Body weight 2912 [oz_av] 2912 [oz_av] FREDRICK ([facility]) Systolic blood pressure 156 mm[Hg] 156 mm[Hg] A [facility] ([facility]) Body height 63 [in_i] 63 [in_i] FREDRICK ([facility]) Diastolic blood pressure 105 mm[Hg] 105 mm[Hg] FREDRICK ([facility]) Patient Treatment Plan of Care Planned Activity Planned Date Details Description Data Source (s) Sertraline 100 MG Oral Tablet FREDRICK ([facility]) Prednisone 20 MG Oral Tablet FREDRICK ([facility]) Prednisone 10 MG Oral Tablet FREDRICK ([facility]) NITROFURANTOIN, MACROCRYSTALS 25 MG / Ni trofurantoin, Monohydrate 75 MG Oral Capsule FREDRICK ([facility]) Ibuprofen 800 MG Oral Tablet FREDRICK ([facility]) Acetaminophen 325 MG / Hydrocodone Bitartrate 5 MG Oral Tablet FREDRICK ([facility]) Fluconazole 150 MG Oral Tablet FREDRICK ([facility]) epinephrine 0.3 mg/0.3 mL injection, auto-injector FREDRICK ([facility]) doxycycline hyclate 100 MG Oral Capsule FREDRICK ([facility]) Clindamycin 300 MG Oral Capsule FREDRICK ([facility]) Ciprofloxacin 500 MG Oral Tablet FREDRICK ([facility]) buspirone hydrochloride 5 MG Oral Tablet FREDRICK ([facility]) Sertraline 100 MG Oral Tablet FREDRICK ([facility]) Prednisone 10 MG Oral Tablet FREDRICK ([facility]) NITROFURANTOIN, MACROCRYSTALS 25 MG / Ni trofurantoin, Monohydrate 75 MG Oral Capsule FREDRICK ([facility]) Ibuprofen 800 MG Oral Tablet FREDRICK ([facility]) Acetaminophen 325 MG / Hydrocodone Bitartrate 5 MG Oral Tablet FREDRICK ([facility]) Fluconazole 150 MG Oral Tablet FREDRICK ([facility]) Levothyroxine Sodium 0.2 MG Oral Tablet [Euthyrox] FREDRICK ([facility]) epinephrine 0.3 mg/0.3 mL injection, auto-injector FREDRICK ([facility]) doxycycline hyclate 100 MG Oral Capsule FREDRICK ([facility]) Clindamycin 300 MG Oral Capsule FREDRICK ([facility]) Ciprofloxacin 500 MG Oral Tablet FREDRICK ([facility]) buspirone hydrochloride 5 MG Oral Tablet FREDRICK ([facility])
[2020-12-03] MEDS ORDERED: ONDANSETRON 4 MG ORAL DISINTEGRATING TAB PO ONE (10:30)
[2020-12-03 11:06] LABS: BASO % 0.5 % (0.0-1.0); EOS # 0.1 10^3/uL (0.0-0.5); EOS % 1.1 % (0.0-3.0); HEMATOCRIT 41.3 % (36.0-47.0); HEMOGLOBIN 14.1 g/dl (12.0-15.5); LYMPH # 2.1 10^3/uL (1.5-5.0); LYMPH % 25.7 % (24.0-44.0); MEAN CORPUSCULAR HEMOGLOBIN 31.8 pg (27.0-33.0); MEAN CORPUSCULAR HGB CONC 34.1 g/dl (32.0-36.5); MONO # 0.8 10^3/uL (0.0-0.8); MONO % 9.4 % (0.0-5.0); NEUTROPHILS # 5.1 10^3/uL (1.5-8.5); NEUTROPHILS % 62.8 % (36.0-66.0); PLATELET COUNT, AUTOMATED 181 10^3/uL (150-450); RED BLOOD COUNT 4.44 10^6/uL (4.00-5.40); WHITE BLOOD COUNT 8.1 10^3/uL (4.0-10.0)
[2020-12-03 11:32] LABS: BLOOD UREA NITROGEN 9 MG/DL (7-18); CALCIUM LEVEL 9.2 MG/DL (8.5-10.1); CARBON DIOXIDE LEVEL 26 MEQ/L (21-32); CHLORIDE LEVEL 108 MEQ/L (98-107); CREATININE FOR GFR 0.69 MG/DL (0.55-1.30); GLOMERULAR FILTRATION RATE > 60.0 (>60); GLUCOSE, FASTING 104 MG/DL (70-100); SODIUM LEVEL 139 MEQ/L (136-145)
[2020-12-03 11:47] LABS: RSV AMPLIFICATION NEGATIVE (NEGATIVE)
[2020-12-03 12:34] VITALS: BP 144/96
== END 2020-12-03 12:36 | disposition home or self-care (01) ==
LOC: M ED 09:42
DX: B34.9 Viral infection, unspecified (principal); R19.7 Diarrhea, unspecified; Z79.899 Other long term (current) drug therapy; Z86.16 Personal history of COVID-19; Z88.1 Allergy status to other antibiotic agents; Z88.8 Allergy status to other drugs, medicaments and biological substances; Z91.030 Bee allergy status
CPT/HCPCS: 80048; 84443; 85025; 87631; 99283; Q0162

== ENCOUNTER → 2021-01-07 | Outpatient (CLI) | payer BC ==
[~2021-01-07] MED LIST changes: +CITA10TA5
== END ==
LOC: M WHC 14:58
PROVIDERS: ATTEND Obstetrics & Gynecology
DX: R10.2 Pelvic and perineal pain (principal)

== ENCOUNTER → 2021-01-18 | Outpatient (CLI) | payer BC | LOC: M LABSMTC 14:27 | PROVIDERS: ATTEND Obstetrics & Gynecology | DX: Z01.812 Encounter for preprocedural laboratory examination (principal); Z20.822 Contact with and (suspected) exposure to COVID-19 ==

== ENCOUNTER → 2021-01-21 | Outpatient (CLI) | payer BC ==
[2021-01-21 16:16] LABS: BLOOD UREA NITROGEN 8 MG/DL (7-18); CALCIUM LEVEL 9.1 MG/DL (8.5-10.1); CARBON DIOXIDE LEVEL 32 MEQ/L (21-32); CHLORIDE LEVEL 102 MEQ/L (98-107); CREATININE FOR GFR 0.91 MG/DL (0.55-1.30); GLOMERULAR FILTRATION RATE > 60.0 (>60); GLUCOSE, FASTING 98 MG/DL (70-100); POTASSIUM SERUM 3.9 MEQ/L (3.5-5.1); SODIUM LEVEL 138 MEQ/L (136-145)
--- NOTE | 2021-01-21 16:59 | ECGEPIP ---
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
== END ==
LOC: M LAB 15:03
PROVIDERS: ATTEND Anesthesiology
DX: Z01.818 Encounter for other preprocedural examination (principal); R94.31 Abnormal electrocardiogram [ECG] [EKG]; I10 Essential (primary) hypertension; E03.9 Hypothyroidism, unspecified

== ENCOUNTER 2021-01-23 08:22 | Day surgery (SDC) | payer BC ==
[~2021-01-23] VITALS: Ht 160 cm; Wt 82.6 kg
[~2021-01-23 08:22] MED LIST changes: +CIPROFLOXACIN 400 MG in IV 1 EA IV ONE; -CITA10TA5; +CITA10TA5 PO; +CLINDAMYCIN 900 MG in IV 1 EA IV ONE; +LR 1,000 ML IV ONE
[2021-01-23 08:53] LABS: HEMATOCRIT 44.2 % (36.0-47.0); HEMOGLOBIN 16.1 g/dl (12.0-15.5); MEAN CORPUSCULAR HEMOGLOBIN 32.1 pg (27.0-33.0); MEAN CORPUSCULAR HGB CONC 36.4 g/dl (32.0-36.5); MEAN CORPUSCULAR VOLUME 88.2 fl (80.0-96.0); PLATELET COUNT, AUTOMATED 220 10^3/uL (150-450); RED BLOOD COUNT 5.01 10^6/uL (4.00-5.40); WHITE BLOOD COUNT 6.9 10^3/uL (4.0-10.0)
[2021-01-23] MEDS ORDERED: fentaNYL 100 MCG/2 ML INJECTION (J3010) As Ordered ONE (08:58)
[2021-01-23] MEDS ORDERED: ROCURONIUM BROMIDE 50 MG/5 ML VIAL As Ordered ONE ×2 (08:58→10:38)
[2021-01-23] MEDS ORDERED: MIDAZOLAM INJ 2MG/2ML VIAL (J2250 PER 1MG) As Ordered ONE (08:58)
[2021-01-23] MEDS ORDERED: dexameTHASONE 4 MG/ML 1ML VIAL (J1100 PER 1MG) As Ordered ONE (08:58)
[2021-01-23] MEDS ORDERED: LIDOCAINE 2% 100MG/5ML SDV (FOR ANES.) As Ordered ONE (08:58)
[2021-01-23] MEDS ORDERED: ONDANSETRON 4MG/2ML VIAL As Ordered ONE (08:58)
[2021-01-23] MEDS ORDERED: KETOROLAC 60MG 2ML VIAL As Ordered ONE (08:58)
[2021-01-23] MEDS ORDERED: ACETAMINOPHEN 1000MG 100ML IV BTL (OFIRMEV) (J0131 PER 10MG) As Ordered ONE (08:58)
[2021-01-23] MEDS ORDERED: propofoL 200 MG/20 ML VIAL As Ordered ONE (08:58)
[2021-01-23] MEDS ORDERED: LACRILUBE (AKWA TEARS) OPHTH OINT 3.5 GM As Ordered ONE (08:58)
[2021-01-23] MEDS ORDERED: BUPIVACAINE HCL 0.25% 30ML VIAL As Ordered ONE (09:31)
[2021-01-23] MEDS ORDERED: PHENYLephrine 500MCG 5ML (100MCG/ML) SYRINGE As Ordered ONE (10:33)
[2021-01-23] MEDS ORDERED: HYDROmorphone HCL 2 MG/ML 1ML VIAL (J1170) As Ordered ONE (10:49)
[2021-01-23] MEDS ORDERED: SUGAMMADEX SODIUM 500 MG/5 ML VIAL (BRIDION) As Ordered ONE (11:05)
[2021-01-23] MEDS ORDERED: PERCOCET 5MG/325MG TAB PO PRN ×2 (12:05→12:45)
[2021-01-23] MEDS ORDERED: ONDANSETRON 4MG/2ML VIAL IV PRN (12:05)
[2021-01-23] MEDS ORDERED: LR 1,000 ML IV SCH ×2 (12:05→14:50)
[2021-01-23] MEDS: fentaNYL 100 MCG/2 ML INJECTION (J3010) IV PRN ×4 (12:08→12:26)
[2021-01-23] MEDS: oxyCODONE 5MG TAB PO PRN ×2 (12:09→12:42)
--- NOTE | 2021-01-23 12:24 | ROOPDOC ---
[facility] Report Of Operation Report of Operation DATE OF PROCEDURE: 01/23/21 PREPROCEDURE DIAGNOSES: 1. Abnormal uterine bleeding. 2. Chronic pelvic pain POSTPROCEDURE DIAGNOSES: 1. Abnormal uterine bleeding. 2. Chronic pelvic pain PROCEDURES PERFORMED: 1. Robotic-assisted laparoscopic hysterectomy. 2. Bilateral salpingectomy. 3. Cystoscopy. SURGEON: Vitor Xie MD FUNCTIONAL DIRECTOR: NEEL Shetty ANESTHESIA: General endotracheal anesthesia. ESTIMATED BLOOD LOSS: 100 mL. INTRAVENOUS FLUIDS: 1000mL lactated Ringer solution. URINE OUTPUT: 200 mL. PREPROCEDURE ANTIBIOTICS: And milligrams of clindamycin and 400 mg of ciprofloxacin OPERATIVE FINDINGS: The patient with normal-appearing bilateral adnexa and uterus CYSTOSCOPIC FINDING: Normal bladder mucosa, no foreign objects. Bilateral ureteral jets were observed. SPECIMEN: Uterus, cervix, bilateral fallopian tubes DESCRIPTION OF PROCEDURE: After informed consent was obtained and written consent was reviewed, the patient was brought to the operating room, where general endotracheal anesthesia was obtained. She was then placed in lithotomy position, was prepped and draped in a normal sterile fashion. A time-out in the operating room was then performed, identifying the patient, procedure to be performed, as well as drug allergies. A speculum was then placed, revealing the cervix. The anterior and posterior aspects of the cervix were stitched with a 0 Vicryl. The uterus was then sounded to 10cm. A extra-large VCare uterine manipulator was then advanced through the cervical os for means to manipulate the uterus. The cervical cap was applied over the cervix, as well as the vaginal sleeve applied into the vagina. The speculum was removed from the patients vagina. A Tamayo catheter was then placed and set to gravity. Gloves were changed, and attention was turned to the patients abdomen, where a Veress needle was placed through the umbilicus. A pneumoperitoneum was then obtained with CO2 gas. The supraumbilical area was infused with 0.25% Marcaine. An incision was made in this area, and a 8 mm trocar and sleeve was advanced through this incision. The laparoscope was then replaced, revealing intra-abdominal placement. Three additional port sites were placed, two to the left side of the patient's abdomen and one to the right. These areas was infused with 0.25% Marcaine. Each one of these areas, incisions were made, and 8 mm trocars and sleeves advanced through each one of these incisions under direct visualization. Next, the da Brianne was then docked, utilizing a camera arm and two operative arms. The patient's abdomen was then surveyed with the above-noted finding. Bilateral salpingectomies were then performed. The fallopian tubes' mesosalpinx was cauterized and ligated with hemostasis noted. Next, the uteroovarian ligaments bilateral were cauterized and ligated with good hemostasis noted. The round ligaments bilaterally were cauterized and ligated with good hemostasis noted. The anterior and posterior aspects of broad ligaments were . The anterior leaf of the broad ligament was cauterized and ligated and dissected along the bladder, creating a bladder flap. The remainder of the broad and cardinal ligaments were then cauterized and ligated with good hemostasis noted. The uterine arteries were skeletonized bilaterally and were cauterized and transected with good hemostasis noted. Anterior and posterior colpotomies were made using monopolar scissors. The uterus was then brought out through the vaginal incision. The surgical sites were inspected and noted to be hemostatic. The vaginal cuff was then closed using 2-0 V-Loc system in a running fashion. Noemi was then applied over the surgical field. The pneumoperitoneum was then released. Next, the cystoscopy was then performed. Utilizing a 70-degree cystoscope, it was advanced transurethrally through the bladder. The bladder was surveyed, showing normal bladder mucosa, no foreign bodies. The bilateral ureteral jets were observed. The cystoscope was then removed. The bladder was then drained. Gloves were changed. Attention was then turned to the patients abdomen, where all four port sites were closed with 4-0 Monocryl and dressed with Dermabond. The patient was then taken out of lithotomy position and was awakened from general anesthesia and taken to recovery in stable condition. Counts were correct. Kori Bañuelos, my logging assistant, played a central role in the operation. She assisted with port placement, tissue retraction and identification, as well as wound closure. VITOR XIE MD. Jan 23, 2021 12:21
[2021-01-23] MEDS: HYDROMORPHONE HCL 0.5 MG/ 0.5 ML SYRINGE (J1170 PER 1) IV PRN ×3 (12:46→13:07)
[2021-01-23 13:39] VITALS: BP 141/89
[2021-01-23 14:13] VITALS: BP 139/88
[2021-01-23 15:24] VITALS: BP 157/90
[2021-01-23] MEDS ORDERED: PROMETHAZINE INJ 25 MG/ML VIAL (J2550) IV PRN (15:40)
[2021-01-23] MEDS: KETOROLAC 30 MG/ML 1ML VIAL IV SCH ×2 (15:57→22:17)
[2021-01-23 16:17] VITALS: BP 132/81
[2021-01-23 18:31] VITALS: BP 147/83
[2021-01-23] MEDS: PERCOCET 5MG/325MG TAB PO PRN ×2 (18:36→22:49)
[2021-01-23 22:00] VITALS: BP 147/84
[2021-01-24] MEDS ORDERED: UNRESOLVED CLARIFICATION ENTRY XX SCH (00:01)
[2021-01-24] MEDS ORDERED: MORPHINE 10 MG/ML 1ML VIAL (J2270) IV ONE (02:00)
[2021-01-24] MEDS: KETOROLAC 30 MG/ML 1ML VIAL IV SCH ×4 (05:00→22:02)
[2021-01-24 06:00] VITALS: BP 137/84
[2021-01-24 07:09] LABS: HEMATOCRIT 38.8 % (36.0-47.0); MEAN CORPUSCULAR HGB CONC 35.6 g/dl (32.0-36.5); PLATELET COUNT, AUTOMATED 203 10^3/uL (150-450); RED BLOOD COUNT 4.31 10^6/uL (4.00-5.40)
[2021-01-24 07:36] LABS: HEMOGLOBIN 13.8 g/dl (12.0-15.5)
[2021-01-24] MEDS: PERCOCET 5MG/325MG TAB PO PRN ×4 (07:46→22:27)
[2021-01-24 09:38] VITALS: BP 140/84
[2021-01-24] MEDS: CitaloPRAM (CeleXA) 10 MG TABLET PO SCH (12:03)
[2021-01-24] MEDS: LEVOTHYROXINE 125MCG TABLET (0.125MG) PO SCH (12:03)
--- NOTE | 2021-01-24 14:10 | IPNPDOC ---
Text Note Date of Service The patient was seen on 01/24/21. NOTE Postoperative Note: S: Patient doing well. Had pain control issues overnight. Has been urinating without any issues. O:vss and AF Gen: Well appearing, NAD abd: soft, appropriately tender ext: neg A/P:POD#1 s/p RALH bilateral salpingectomy and cystoscopy- recovery in stable condition -Continue routine postoperative care Discharge plan tomorrow morning VS,Fishbone, I+O VS, Fishbone, I+O Laboratory Tests 01/24/21 06:20 Vital Signs Date Time Temp Pulse Resp B/P (MAP) Pulse Ox O2 Delivery O2 Flow Rate FiO2 01/24/21 12:06 138/85 01/24/21 12:04 18 Room Air 01/24/21 09:38 98.6 93 95 01/23/21 13:07 2.0 I&O- Last 24 Hours up to 6 AM 01/24/21 06:00 Intake Total 3025 ml Output Total 1750 ml Balance 1275 ml VITOR PEREZ MD. Jan 24, 2021 14:10
[2021-01-24 14:22] VITALS: BP 122/63
[2021-01-24 22:00] VITALS: BP 141/95
[2021-01-24] MEDS ORDERED: MOM 30ML SUSPENSION UDC PO PRN (23:45)
[2021-01-24] MEDS ORDERED: SIMETHICONE 80MG CHEW TAB PO PRN (23:45)
[2021-01-24] MEDS: DOCUSATE SODIUM 100MG CAPSULE PO SCH (23:55)
--- NOTE | 2021-01-25 00:37 | DS.PDOC ---
Discharge Summary General Date of Admission Discharge Summary PROCEDURES PERFORMED DURING STAY: [None]. ADMITTING DIAGNOSES: 1. . DISCHARGE DIAGNOSES: 1. . COMPLICATIONS/CHIEF COMPLAINT: Abnormal Uterine Bleeding. HISTORY OF PRESENT ILLNESS: . HOSPITAL COURSE: . DISCHARGE MEDICATIONS: Please see below. ALLERGIES: Please see below. PHYSICAL EXAMINATION ON DISCHARGE: VITAL SIGNS: Please see below. GENERAL: HEENT: NECK: CARDIOVASCULAR EXAMINATION: RESPIRATORY EXAMINATION: ABDOMINAL EXAMINATION: EXTREMITIES: SKIN: NEUROLOGICAL EXAMINATION: PSYCHIATRIC EXAMINATION: LABORATORY DATA: Please see below. IMAGING: PROGNOSIS: ACTIVITY: [As tolerated]. DIET: DISCHARGE PLAN: DISPOSITION: . DISCHARGE INSTRUCTIONS: 1. . ITEMS TO FOLLOWUP ON ON OUTPATIENT: 1. . DISCHARGE CONDITION: [Stable]. TIME SPENT ON DISCHARGE: Greater than minutes. Vital Signs/I&Os Vital Signs Date Time Temp Pulse Resp B/P (MAP) Pulse Ox O2 Delivery O2 Flow Rate FiO2 01/24/21 22:57 18 01/24/21 22:00 98.5 105 141/95 (110) 95 Room Air 01/23/21 13:07 2.0 I&O- Last 24 Hours up to 6 AM 01/25/21 06:00 Intake Total 1620 ml Output Total 2700 ml Balance -1080 ml Laboratory Data Labs 24H Laboratory Tests 2 01/24/21 06:20: Nucleated Red Blood Cells % (auto) 0.0 CBC/BMP Laboratory Tests 01/24/21 06:20 Discharge Medications Scheduled Citalopram Hydrobromide (Citalopram HBr) 10 Mg Tablet, 10 MG PO DAILY, (Reported) Levothyroxine Sodium (Levothyroxine Sodium) 50 Mcg Tablet, 250 MCG PO DAILY, (Reported) Lisinopril/Hydrochlorothiazide (Lisinopril-Hctz 20-25 mg Tab) 1 Each Tablet, 1 TAB PO DAILY, (Reported) Allergies Coded Allergies: amoxicillin (Verified Allergy, Unknown, RASH, 05/17/20) bee venom protein (honey bee) (Verified Allergy, Unknown, SWELLING, 05/17/20) sulfamethoxazole (Verified Allergy, Unknown, RASH, 05/17/20) trimethoprim (Verified Allergy, Unknown, RASH, 05/17/20) vancomycin (Verified Adverse Reaction, Unknown, RED STREAK WITH IV, 05/17/20) VITOR PEREZ MD. Jan 25, 2021 00:37
[2021-01-25] MEDS: KETOROLAC 30 MG/ML 1ML VIAL IV SCH ×2 (04:32→11:11)
[2021-01-25] MEDS: LEVOTHYROXINE 125MCG TABLET (0.125MG) PO SCH (04:33)
[2021-01-25] MEDS: PERCOCET 5MG/325MG TAB PO PRN (04:33)
[2021-01-25 06:00] VITALS: BP 131/91
[2021-01-25] MEDS: CitaloPRAM (CeleXA) 10 MG TABLET PO SCH (07:53)
[2021-01-25] MEDS: DOCUSATE SODIUM 100MG CAPSULE PO SCH (07:54)
[2021-01-25 07:57] VITALS: BP 135/93
== END 2021-01-25 12:20 | disposition home or self-care (01) ==
LOC: M SDC 08:22 → M MS5PR 13:30 → M SDC 01-25 12:20
PROVIDERS: ATTEND Obstetrics & Gynecology
DX: N93.9 Abnormal uterine and vaginal bleeding, unspecified (principal); R10.2 Pelvic and perineal pain; I10 Essential (primary) hypertension; E03.9 Hypothyroidism, unspecified; Z79.899 Other long term (current) drug therapy; Z88.0 Allergy status to penicillin; Z88.2 Allergy status to sulfonamides; Z88.7 Allergy status to serum and vaccine; Z91.030 Bee allergy status
CPT/HCPCS: 36415; 58571; 85027; 86850; 86900; 86901; 88307; 96361; 96374; 96375; 96376; J0131; J0744; J1100; J1170; J1885; J2250; J2270; J2370; J2405; J3010; S2900

== ENCOUNTER 2021-02-17 09:15 | Emergency (ER) | payer BC ==
[~2021-02-17] VITALS: Ht 160 cm; Wt 85.1 kg
[~2021-02-17 09:15] MED LIST changes: -CIPROFLOXACIN 400 MG in IV 1 EA IV ONE; -CLINDAMYCIN 900 MG in IV 1 EA IV ONE; -LR 1,000 ML IV ONE
[2021-02-17] MEDS ORDERED: HYDR-3363 (09:24)
[2021-02-17] MEDS ORDERED: OXYC1TAB23 (09:24)
--- NOTE | 2021-02-17 09:48 | REP ---
INDICATION: pain. COMPARISON: None. TECHNIQUE: There are three views. FINDINGS: Mineralization is normal. The acromioclavicular and glenohumeral articulations are unremarkable. There is no fracture or dislocation. There are no calcifications or foreign bodies. IMPRESSION: Essentially negative plain film study of the left shoulder. <Electronically signed by Sunny Truong > 02/17/21 0919
[2021-02-17] MEDS ORDERED: MORPHINE 4 MG/ML 1ML VIAL/SYRINGE (J2270) IV ONE ×2 (10:30→11:35)
[2021-02-17 11:10] LABS: BASO % 0.4 % (0.0-1.0); EOS # 0.1 10^3/uL (0.0-0.5); EOS % 1.1 % (0.0-3.0); HEMATOCRIT 28.5 % (36.0-47.0); LYMPH # 2.2 10^3/uL (1.5-5.0); LYMPH % 28.5 % (24.0-44.0); MEAN CORPUSCULAR HEMOGLOBIN 32.5 pg (27.0-33.0); MEAN CORPUSCULAR HGB CONC 35.1 g/dl (32.0-36.5); MEAN CORPUSCULAR VOLUME 92.5 fl (80.0-96.0); MONO # 0.6 10^3/uL (0.0-0.8); NEUTROPHILS # 4.6 10^3/uL (1.5-8.5); NEUTROPHILS % 61.2 % (36.0-66.0); PLATELET COUNT, AUTOMATED 208 10^3/uL (150-450); RED BLOOD COUNT 3.08 10^6/uL (4.00-5.40); WHITE BLOOD COUNT 7.6 10^3/uL (4.0-10.0)
[2021-02-17 11:20] LABS: INR 0.95; PROTHROMBIN TIME 12.9 SECONDS (12.5-14.3)
[2021-02-17 11:21] LABS: PARTIAL THROMBOPLASTIN TIME 27.2 SECONDS (24.2-38.5)
[2021-02-17 11:23] LABS: D-DIMER QUANT 342.9 ng/ml (<500)
[2021-02-17 11:32] LABS: BLOOD UREA NITROGEN 7 MG/DL (7-18); CALCIUM LEVEL 8.6 MG/DL (8.5-10.1); CARBON DIOXIDE LEVEL 27 MEQ/L (21-32); CHLORIDE LEVEL 103 MEQ/L (98-107); CREATININE FOR GFR 0.74 MG/DL (0.55-1.30); GLOMERULAR FILTRATION RATE > 60.0 (>60); GLUCOSE, FASTING 119 MG/DL (70-100); POTASSIUM SERUM 3.6 MEQ/L (3.5-5.1); SODIUM LEVEL 138 MEQ/L (136-145)
[2021-02-17 11:33] LABS: CK-MB VALUE MASS 1.5 NG/ML (<3.6); CPK CREATINE PHOSPHOKINASE 85 U/L (26-192); MB/CK RELATIVE INDEX 1.76 (< OR =4); TROPONIN I < 0.02 NG/ML (< 0.10)
[2021-02-17] MEDS ORDERED: ISOVUE-370 76% 100ML VIAL As Ordered ONE (11:38)
--- NOTE | 2021-02-17 12:05 | REP ---
INDICATION: r/o PE. COMPARISON: None. TECHNIQUE: CT of the chest with IV contrast, CT angiography. FINDINGS: There are no emboli in the pulmonary trunk or central pulmonary arteries. There are no emboli in the pulmonary artery lobar segment branches. There are no infiltrates or pleural effusions. There are no lung masses or nodules. There is no mediastinal or hilar lymph node enlargement. There is no axillary lymphadenopathy. The thoracic aorta is unremarkable. Cardiac size is enlarged. There is no pericardial effusion. The visualized upper abdominal contents are unremarkable. IMPRESSION: Cardiomegaly. No pulmonary emboli. No infiltrates, effusions, masses or nodules. <Electronically signed by Sunny Truong > 02/17/21 1200
[2021-02-17 12:41] LABS: NT-PRO BNP 22 PG/ML (<125)
[2021-02-17] MEDS ORDERED: CYCLOBENZAPRINE 5MG TABLET PO ONE (13:25)
[2021-02-17] MEDS ORDERED: LIDOCAINE 5% (LIDODERM) PATCH TD ONE (13:25)
[2021-02-17] MEDS ORDERED: LIDO5DIS41 TOP (14:30)
[2021-02-17] MEDS ORDERED: BACL10TA2 PO (14:30)
[2021-02-17 14:33] VITALS: BP 161/94
--- NOTE | 2021-02-17 19:26 | ECGEPIP ---
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
[2021-02-17] MEDS ORDERED: **NOTE PATIENT COMMENT** MISC XX SCH (21:00)
--- NOTE | 2021-02-20 19:28 | ED PDOC ---
Post-Departure Follow-Up cta chest faxed to [facility] for fu Myles Martines MD Feb 20, 2021 19:28
== END 2021-02-17 14:44 | disposition home or self-care (01) ==
LOC: M ED 09:15
DX: S46.812A Strain of other muscles, fascia and tendons at shoulder and upper arm level, left arm, initial encounter (principal); X58.XXXA Exposure to other specified factors, initial encounter; Y92.009 Unspecified place in unspecified non-institutional (private) residence as the place of occurrence of the external cause; Y93.89 Activity, other specified; Y99.8 Other external cause status; R94.31 Abnormal electrocardiogram [ECG] [EKG]; E03.9 Hypothyroidism, unspecified; I10 Essential (primary) hypertension; Z79.899 Other long term (current) drug therapy; Z79.890 Hormone replacement therapy; Z88.0 Allergy status to penicillin; Z88.8 Allergy status to other drugs, medicaments and biological substances; Z91.030 Bee allergy status; Z88.2 Allergy status to sulfonamides; Z88.1 Allergy status to other antibiotic agents; Z85.850 Personal history of malignant neoplasm of thyroid; Z98.890 Other specified postprocedural states; Z90.89 Acquired absence of other organs
CPT/HCPCS: 71275; 73030; 80048; 82550; 82553; 83880; 84484; 85025; 85379; 85610; 85730; 93005; 96374; 96376; 99284; J2270; Q9967

== ENCOUNTER → 2021-02-20 | Outpatient (REF) | payer BC ==
[~2021-02-20] MED LIST changes: +BACL10TA2 PO; +HYDR-3363; +LIDO5DIS41 TOP; +OXYC1TAB23
== END ==
LOC: M LAB REF 16:58
PROVIDERS: ATTEND Physician Assistant
DX: E03.9 Hypothyroidism, unspecified (principal)

== ENCOUNTER → 2021-10-04 | Outpatient (REF) | LOC: M EMP 12:53 | PROVIDERS: ATTEND Family Medicine | DX: Z20.822 Contact with and (suspected) exposure to COVID-19 (principal) ==

== ENCOUNTER → 2021-10-14 | Outpatient (REF) ==
[~2021-10-14] MED LIST changes: -CITA10TA5 PO; +CITA10TA7 PO; -LISI20TA20 PO; +LISI20TA37 PO
== END ==
LOC: M EMP 14:17
PROVIDERS: ATTEND Family Medicine
DX: Z20.828 Contact with and (suspected) exposure to other viral communicable diseases (principal)

== ENCOUNTER → 2021-10-29 | Outpatient (REF) ==
[2021-10-29 15:09] LABS: RSV AMPLIFICATION NEGATIVE (NEGATIVE)
== END ==
LOC: M EMP 13:10
PROVIDERS: ATTEND Family Medicine
DX: Z11.52 Encounter for screening for COVID-19 (principal); Z20.822 Contact with and (suspected) exposure to COVID-19

== ENCOUNTER → 2021-12-03 | Outpatient (REF) | LOC: M LABSMTC 13:04 | PROVIDERS: ATTEND Pediatrics | DX: Z11.52 Encounter for screening for COVID-19 (principal); Z20.822 Contact with and (suspected) exposure to COVID-19 ==

== ENCOUNTER → 2022-08-14 | Outpatient (REF) | payer BC | LOC: M LAB REF 16:02 | PROVIDERS: ATTEND Nurse Practitioner Family | DX: R39.9 Unspecified symptoms and signs involving the genitourinary system (principal) ==

== ENCOUNTER 2022-09-06 14:55 | Emergency (ER) | payer BC ==
[~2022-09-06] VITALS: Ht 160 cm; Wt 77.3 kg
[2022-09-06 15:23] LABS: BASO % 0.5 % (0.0-1.0); EOS % 0.5 % (0.0-3.0); HEMATOCRIT 46.5 % (36.0-47.0); HEMOGLOBIN 16.4 g/dl (12.0-15.5); LYMPH # 2.1 10^3/uL (1.5-5.0); LYMPH % 35.6 % (24.0-44.0); MEAN CORPUSCULAR HEMOGLOBIN 31.1 pg (27.0-33.0); MEAN CORPUSCULAR HGB CONC 35.3 g/dl (32.0-36.5); MEAN CORPUSCULAR VOLUME 88.2 fl (80.0-96.0); MONO # 0.4 10^3/uL (0.0-0.8); MONO % 6.5 % (2.0-8.0); NEUTROPHILS # 3.3 10^3/uL (1.5-8.5); NEUTROPHILS % 56.7 % (36.0-66.0); PLATELET COUNT, AUTOMATED 234 10^3/uL (150-450); RED BLOOD COUNT 5.27 10^6/uL (4.00-5.40); WHITE BLOOD COUNT 5.8 10^3/uL (4.0-10.0)
[2022-09-06] MEDS ORDERED: NS 1,000 ML IV ONE (15:30)
[2022-09-06 15:53] LABS: CK-MB VALUE MASS < 1.0 NG/ML (<3.6); CPK CREATINE PHOSPHOKINASE 73 U/L (26-192); MB/CK RELATIVE INDEX 1.37 (< OR =4)
[2022-09-06 15:59] LABS: ALBUMIN 4.2 GM/DL (3.2-5.2); ALT/SGPT 51 U/L (12-78); BILIRUBIN,DIRECT 0.2 MG/DL (0.0-0.2); BILIRUBIN,TOTAL 0.9 MG/DL (0.2-1.0); BLOOD UREA NITROGEN 7 MG/DL (7-18); CALCIUM LEVEL 9.1 MG/DL (8.5-10.1); CARBON DIOXIDE LEVEL 27 MEQ/L (21-32); CHLORIDE LEVEL 103 MEQ/L (98-107); CREATININE FOR GFR 0.78 MG/DL (0.55-1.30); FREE T4 1.38 NG/DL (0.76-1.46); GLOMERULAR FILTRATION RATE > 60.0 (>60); GLUCOSE, FASTING 120 MG/DL (70-100); LIPASE 126 U/L (73-393); NT-PRO BNP 15 PG/ML (<125); SODIUM LEVEL 136 MEQ/L (136-145); THYROID STIMULATING HORMONE 0.263 uIU/ML (0.358-3.740); TOTAL PROTEIN 7.8 GM/DL (6.4-8.2)
[2022-09-06] MEDS ORDERED: lisinopriL 40MG TAB PO ONE (16:40)
[2022-09-06] MEDS ORDERED: ISOVUE-370 76% 100ML VIAL As Ordered ONE (16:47)
[2022-09-06 16:57] LABS: CK-MB VALUE MASS < 1.0 NG/ML (<3.6); CPK CREATINE PHOSPHOKINASE 114 U/L (26-192); MB/CK RELATIVE INDEX 0.88 (< OR =4)
[2022-09-06 17:30] VITALS: BP 154/98
[2022-09-06 19:03] LABS: CK-MB VALUE MASS < 1.0 NG/ML (<3.6); CPK CREATINE PHOSPHOKINASE 64 U/L (26-192); MB/CK RELATIVE INDEX 1.56 (< OR =4)
== END 2022-09-06 20:57 | disposition home or self-care (01) ==
LOC: M ED 14:55
DX: R07.9 Chest pain, unspecified (principal); R06.02 Shortness of breath; I10 Essential (primary) hypertension; Z85.858 Personal history of malignant neoplasm of other endocrine glands; Z90.710 Acquired absence of both cervix and uterus; Z88.1 Allergy status to other antibiotic agents; Z88.2 Allergy status to sulfonamides; Z88.8 Allergy status to other drugs, medicaments and biological substances; Z91.030 Bee allergy status; Z90.89 Acquired absence of other organs; Z79.899 Other long term (current) drug therapy
CPT/HCPCS: 36415; 71045; 71275; 80048; 80076; 82550; 82553; 83690; 83880; 84439; 84443; 84484; 85025; 93005; 93041; 94760; 99285; Q9967

== ENCOUNTER → 2022-11-12 | Outpatient (REF) | payer BC ==
[2022-11-12 17:18] LABS: APPEARANCE, URINE MANUAL CLEAR (CLEAR); COLOR, URINE MANUAL YELLOW (YELLOW)
[2022-11-12 17:19] LABS: BILIRUBIN, URINE MANUAL NEGATIVE (NEGATIVE); BLOOD URINE MANUAL NEGATIVE (NEGATIVE); GLUCOSE, URINE (UA) MANUAL NEGATIVE (NEGATIVE); KETONE, URINE MANUAL NEGATIVE (NEGATIVE); LEUKOCYTE ESTERASE, URINE MAN NEGATIVE (NEGATIVE); NITRITE, URINE MANUAL NEGATIVE (NEGATIVE); PROTEIN, URINE MANUAL NEGATIVE (NEGATIVE); UROBILINOGEN, URINE MANUAL NORMAL (NORMAL)
== END ==
LOC: M SMT 17:06
PROVIDERS: ATTEND Nurse Practitioner Women's Health
DX: R39.15 Urgency of urination (principal)

== ENCOUNTER → 2023-10-01 | Outpatient (REF) | payer BC ==
[2023-10-01 16:39] LABS: BASO # 0.1 10^3/uL (0.0-0.2); BASO % 0.6 % (0.0-1.0); EOS # 0.1 10^3/uL (0.0-0.5); EOS % 1.2 % (0.0-3.0); HEMATOCRIT 40.4 % (36.0-47.0); HEMOGLOBIN 14.2 g/dl (12.0-15.5); LYMPH # 2.7 10^3/uL (1.5-5.0); LYMPH % 32.6 % (24.0-44.0); MEAN CORPUSCULAR HEMOGLOBIN 31.8 pg (27.0-33.0); MEAN CORPUSCULAR HGB CONC 35.1 g/dl (32.0-36.5); MEAN CORPUSCULAR VOLUME 90.6 fl (80.0-96.0); MONO # 0.9 10^3/uL (0.0-0.8); MONO % 10.4 % (2.0-8.0); NEUTROPHILS # 4.5 10^3/uL (1.5-8.5); NEUTROPHILS % 54.7 % (36.0-66.0); PLATELET COUNT, AUTOMATED 247 10^3/uL (150-450); RED BLOOD COUNT 4.46 10^6/uL (4.00-5.40); WHITE BLOOD COUNT 8.1 10^3/uL (4.0-10.0)
[2023-10-01 17:08] LABS: ALKALINE PHOSPHATASE 75 U/L (46-116); ALT/SGPT 118 U/L (7.0-40); AST/SGOT 75 U/L (<34); BILIRUBIN,TOTAL 0.4 MG/DL (0.3-1.2); BLOOD UREA NITROGEN 11 MG/DL (9-23); CALCIUM LEVEL 9.2 MG/DL (8.5-10.1); CARBON DIOXIDE LEVEL 28 MMOL/L (20-31); CHLORIDE LEVEL 105 MMOL/L (98-107); CHOLESTEROL LEVEL 196 MG/DL (<200); CREATININE FOR GFR 0.63 MG/DL (0.55-1.30); GLOMERULAR FILTRATION RATE > 60.0 (>60); GLUCOSE, FASTING 90 MG/DL (60-100); HDL CHOLESTEROL 32.1 MG/DL (>40); LDL CHOLESTEROL 134.1 MG/DL (<100); NON-HDL-C 163.9 MG/DL; POTASSIUM SERUM 4.7 MMOL/L (3.5-5.1); SODIUM LEVEL 141 MMOL/L (136-145); TOTAL PROTEIN 6.9 G/DL (5.7-8.2); TRIGLYCERIDES LEVEL 149 MG/DL (<150)
[2023-10-01 17:09] LABS: FREE T4 1.81 NG/DL (0.89-1.76); THYROID STIMULATING HORMONE 0.664 uIU/ML (0.55-4.78)
[2023-10-01 17:28] LABS: HEMOGLOBIN A1c 4.8 % (4.0-6.0)
== END ==
LOC: M LAB REF 16:17
PROVIDERS: ATTEND Nurse Practitioner Family
DX: E66.9 Obesity, unspecified (principal); E55.9 Vitamin D deficiency, unspecified

== ENCOUNTER → 2023-11-23 | Outpatient (REF) | payer BC | LOC: M LAB REF 12:05 | PROVIDERS: ATTEND Nurse Practitioner Family | DX: R30.0 Dysuria (principal) ==

== ENCOUNTER → 2024-01-07 | Outpatient (REF) | payer BC | LOC: M LAB REF 16:09 | PROVIDERS: ATTEND Nurse Practitioner Family | DX: J02.9 Acute pharyngitis, unspecified (principal) ==

== ENCOUNTER → 2024-01-14 | Outpatient (REF) | payer BC | LOC: M SFHCDERM 16:11 | PROVIDERS: ATTEND Dermatology | DX: L50.9 Urticaria, unspecified (principal) ==

== ENCOUNTER → 2024-03-01 | Outpatient (REF) | payer BC | LOC: M SFHCDERM 13:58 | PROVIDERS: ATTEND Dermatology | DX: D48.5 Neoplasm of uncertain behavior of skin (principal) ==

== ENCOUNTER → 2024-04-15 | Outpatient (CLI) | payer BC ==
[2024-04-15 11:57] LABS: BASO # 0.1 10^3/uL (0.0-0.2); BASO % 0.6 % (0.0-1.0); EOS # 0.1 10^3/uL (0.0-0.5); EOS % 1.3 % (0.0-3.0); HEMATOCRIT 48.5 % (36.0-47.0); HEMOGLOBIN 17.3 g/dl (12.0-15.5); LYMPH # 2.4 10^3/uL (1.5-5.0); LYMPH % 28.5 % (24.0-44.0); MEAN CORPUSCULAR HEMOGLOBIN 32.9 pg (27.0-33.0); MEAN CORPUSCULAR HGB CONC 35.7 g/dl (32.0-36.5); MEAN CORPUSCULAR VOLUME 92.2 fl (80.0-96.0); MONO # 0.8 10^3/uL (0.0-0.8); MONO % 9.5 % (2.0-8.0); NEUTROPHILS % 59.7 % (36.0-66.0); PLATELET COUNT, AUTOMATED 268 10^3/uL (150-450); RED BLOOD COUNT 5.26 10^6/uL (4.00-5.40); WHITE BLOOD COUNT 8.3 10^3/uL (4.0-10.0)
[2024-04-15 12:31] LABS: ALBUMIN 4.7 G/DL (3.2-5.2); ALKALINE PHOSPHATASE 74 U/L (46-116); ALT/SGPT 164 U/L (7.0-40); AST/SGOT 168 U/L (<34); BILIRUBIN,DIRECT 0.3 MG/DL (<0.4); BILIRUBIN,TOTAL 1.7 MG/DL (0.3-1.2); BLOOD UREA NITROGEN 16 MG/DL (9-23); CALCIUM LEVEL 10.2 MG/DL (8.5-10.1); CARBON DIOXIDE LEVEL 29 MMOL/L (20-31); CHLORIDE LEVEL 100 MMOL/L (98-107); CHOLESTEROL LEVEL 242 MG/DL (<200); CHOLESTEROL RISK RATIO 6.54 (<5); CREATININE FOR GFR 0.96 MG/DL (0.55-1.30); GLOMERULAR FILTRATION RATE > 60.0 (>60); GLUCOSE, FASTING 112 MG/DL (60-100); LDL CHOLESTEROL 165.6 MG/DL (<100); PHOSPHORUS LEVEL 3.4 MG/DL (2.5-4.9); POTASSIUM SERUM 4.3 MMOL/L (3.5-5.1); SODIUM LEVEL 136 MMOL/L (136-145); TOTAL PROTEIN 7.8 G/DL (5.7-8.2); TRIGLYCERIDES LEVEL 197 MG/DL (<150)
[2024-04-15 12:33] LABS: HEMOGLOBIN A1c 4.7 % (4.0-6.0); THYROID STIMULATING HORMONE 10.614 uIU/ML (0.55-4.78); THYROXINE (T4) 16.6 UG/DL (4.5-10.9)
== END ==
LOC: M LAB 11:31
PROVIDERS: ATTEND Nurse Practitioner Family
DX: E66.8 Other obesity (principal)

== ENCOUNTER → 2024-04-28 | Outpatient (CLI) | payer BC ==
[2024-04-28 12:25] LABS: ALBUMIN 4.2 G/DL (3.2-5.2); ALKALINE PHOSPHATASE 70 U/L (46-116); ALT/SGPT 190 U/L (7.0-40); AST/SGOT 164 U/L (<34); BILIRUBIN,DIRECT 0.3 MG/DL (<0.4); BILIRUBIN,TOTAL 1.2 MG/DL (0.3-1.2); CHOLESTEROL LEVEL 223 MG/DL (<200); CHOLESTEROL RISK RATIO 6.17 (<5); HDL CHOLESTEROL 36.1 MG/DL (>40); LDL CHOLESTEROL 157.1 MG/DL (<100); NON-HDL-C 186.9 MG/DL; TOTAL PROTEIN 7.1 G/DL (5.7-8.2); TRIGLYCERIDES LEVEL 149 MG/DL (<150)
[2024-04-28 12:38] LABS: HEPATITIS B SURFACE ANTIGEN NEGATIVE (NEGATIVE)
[2024-04-28 12:59] LABS: HEPATITIS C VIRUS ABY INDEX < 0.02 INDEX (<0.8)
[2024-04-28 13:00] LABS: HEPATITIS B CORE ANTIBODY IGM NEGATIVE (NEGATIVE)
== END ==
LOC: M LAB 10:41
PROVIDERS: ATTEND Registered Nurse
DX: E78.2 Mixed hyperlipidemia (principal); R74.01 Elevation of levels of liver transaminase levels

== ENCOUNTER → 2024-05-30 | Outpatient (CLI) | payer BC ==
[2024-05-30 12:56] LABS: ALBUMIN 4.1 G/DL (3.2-5.2); BILIRUBIN,DIRECT 0.3 MG/DL (<0.4); CHOLESTEROL RISK RATIO 6.16 (<5); HDL CHOLESTEROL 28.4 MG/DL (>40); LDL CHOLESTEROL 118.8 MG/DL (<100); NON-HDL-C 146.6 MG/DL; TOTAL PROTEIN 6.8 G/DL (5.7-8.2)
[2024-05-30 12:58] LABS: FREE T3 5.1 PG/ML (2.3-4.2); FREE T4 2.18 NG/DL (0.89-1.76); THYROID STIMULATING HORMONE 0.047 uIU/ML (0.55-4.78)
== END ==
LOC: M LAB 10:25
PROVIDERS: ATTEND Registered Nurse
DX: E78.2 Mixed hyperlipidemia (principal); E03.9 Hypothyroidism, unspecified; R74.01 Elevation of levels of liver transaminase levels

== ENCOUNTER → 2024-08-02 | Outpatient (CLI) | payer BC | LOC: M OUTALCOH 08:05 | PROVIDERS: ATTEND Psychiatry & Neurology Psychiatry | DX: Z03.89 Encounter for observation for other suspected diseases and conditions ruled out (principal) ==

== ENCOUNTER → 2025-02-06 | Outpatient (REF) | payer BC ==
[2025-02-06 19:09] LABS: BASO % 0.6 % (0.0-1.0); EOS # 0.1 10^3/uL (0.0-0.5); HEMATOCRIT 42.5 % (36.0-47.0); LYMPH # 1.9 10^3/uL (1.5-5.0); LYMPH % 29.6 % (24.0-44.0); MEAN CORPUSCULAR HEMOGLOBIN 31.7 pg (27.0-33.0); MEAN CORPUSCULAR HGB CONC 35.3 g/dl (32.0-36.5); MEAN CORPUSCULAR VOLUME 89.9 fl (80.0-96.0); MONO # 0.6 10^3/uL (0.0-0.8); MONO % 9.4 % (2.0-8.0); NEUTROPHILS # 3.7 10^3/uL (1.5-8.5); NEUTROPHILS % 59.1 % (36.0-66.0); PLATELET COUNT, AUTOMATED 253 10^3/uL (150-450); RED BLOOD COUNT 4.73 10^6/uL (4.00-5.40); WHITE BLOOD COUNT 6.3 10^3/uL (4.0-10.0)
[2025-02-06 19:31] LABS: ALBUMIN 4.4 G/DL (3.2-5.2); ALKALINE PHOSPHATASE 82 U/L (35-104); ALT/SGPT 53 U/L (7.0-40); AST/SGOT 32 U/L (<34); BILIRUBIN,TOTAL 1.4 MG/DL (0.3-1.2); BLOOD UREA NITROGEN 12 MG/DL (9-23); CALCIUM LEVEL 9.3 MG/DL (8.5-10.1); CARBON DIOXIDE LEVEL 24 MMOL/L (20-31); CHLORIDE LEVEL 104 MMOL/L (98-107); CHOLESTEROL LEVEL 183 MG/DL (<200); CREATININE FOR GFR 0.78 MG/DL (0.55-1.30); GLOMERULAR FILTRATION RATE > 60.0 (>60); GLUCOSE, FASTING 94 MG/DL (60-100); HDL CHOLESTEROL 31.5 MG/DL (>40); LDL CHOLESTEROL 113.9 MG/DL (<100); MAGNESIUM LEVEL 2.1 MG/DL (1.8-2.4); NON-HDL-C 151.5 MG/DL; POTASSIUM SERUM 4.3 MMOL/L (3.5-5.1); SODIUM LEVEL 140 MMOL/L (136-145); TOTAL PROTEIN 7.4 G/DL (5.7-8.2); TRIGLYCERIDES LEVEL 188 MG/DL (<150)
[2025-02-06 19:40] LABS: THYROID STIMULATING HORMONE 7.357 uIU/ML (0.55-4.78); TOTAL 25(OH) VITAMIN D 40.3 NG/ML (20.0-100.0)
[2025-02-06 20:52] LABS: HEMOGLOBIN A1c 4.5 % (4.0-6.0)
== END ==
LOC: M LAB REF 14:52
PROVIDERS: ATTEND Nurse Practitioner Family
DX: B34.9 Viral infection, unspecified (principal); E66.9 Obesity, unspecified; E55.9 Vitamin D deficiency, unspecified

== ENCOUNTER → 2025-03-14 | Outpatient (CLI) | payer BC ==
[2025-03-14 18:24] LABS: RHEUMATOID FACTOR QUANT < 3.5 IU/ML (<14)
[2025-03-17 13:17] LABS: SSA SJOGRENS A <1.0 NEG AI (<1.0 NEG); SSB SJOGRENS B <1.0 NEG AI (<1.0 NEG)
[2025-03-20 17:28] LABS: ANA PATTERN Cytoplasmic (NEGATIVE); ANA SCREEN, IFA POSITIVE (NEGATIVE); ANA TITER 1:40 titer (<1:40)
== END ==
LOC: M LAB 17:10
PROVIDERS: ATTEND Nurse Practitioner Family
DX: J11.1 Influenza due to unidentified influenza virus with other respiratory manifestations (principal)

== ENCOUNTER → 2025-03-21 | Outpatient (REF) | payer BC | LOC: M SFHCDERM 16:30 | PROVIDERS: ATTEND Physician Assistant | DX: D49.2 Neoplasm of unspecified behavior of bone, soft tissue, and skin (principal) ==

== ENCOUNTER → 2025-09-19 | Outpatient (REF) | payer BC ==
[~2025-09-19] MED LIST changes: +LEVOTAB10 PO; +LIDO1ADH93 TOP; -LIDO5DIS41 TOP; +LISI20TA35; +METH1TAB13; +METO1TAB32
== END ==
LOC: M SFHCDERM 16:34
PROVIDERS: ATTEND Dermatology
DX: L91.0 Hypertrophic scar (principal)